=== PATIENT | male | born 1945 | race Caucasian/White ===

== ENCOUNTER 2020-07-19 06:40 | Observation (INO) | payer OTHER ==
[2020-07-19] MEDS ORDERED: NA CHLORIDE 0.9% 1,000 ML ONE ×2 (07:34→14:02)
--- NOTE | 2020-07-19 07:40 | ER ---
Nurse's Notes [facility] Name: Abbe Mcknight Age: 75 yrs Sex: Male : 1945 Arrival Date: 07/19/2020 Time: 06:39 Bed 14 Private MD: Diagnosis: Repeated falls;Weakness;Rhabdomyolysis Presentation: 07/19 06:41 Chief complaint: EMS states: he tripped and fell down in hardwood floor, hit his right rr5 eye and right shoulder sustained hematoma and swelling right forehead, left eye, multiple skin abrasion bilateral forearm and multiple bruises bilateral knees he manage to call his sister around 5AM to get some help,incident happened 8PM last night denies LOC. Coronavirus screen: Client denies travel out of the [place] in the last 14 days. At this time, the client does not indicate any symptoms associated with coronavirus-19. Ebola Screen: Patient negative for fever greater than or equal to 101.5 degrees Fahrenheit, and additional compatible Ebola Virus Disease symptoms Patient denies exposure to infectious person. Patient denies travel to an Ebola-affected area in the 21 days before illness onset. Initial Sepsis Screen: Does the patient meet any 2 criteria? No. Patient's initial sepsis screen is negative. Does the patient have a suspected source of infection? No. Patient's initial sepsis screen is negative. Risk Assessment: Do you want to hurt yourself or someone else? Patient reports no desire to harm self or others. Onset of symptoms was July 18, 2020 at 20:00. 06:41 Method Of Arrival: EMS: [facility] rr5 06:41 Acuity: JORGE 3 rr5 06:45 Care prior to arrival: None. Mechanism of Injury: Fall from standing position. Trauma rr5 event details: Injury occurred in the [facility], Injury occurred: at home. Injury occurred: July 18, 2019. Trauma Activation: Not Applicable Physician: ED Physician; Name: ; Notified At: ; Arrived At: Physician: General Surgeon; Name: ; Notified At: ; Arrived At: Physician: Radiology; Name: ; Notified At: ; Arrived At: Physician: Respiratory; Name: ; Notified At: ; Arrived At: Physician: Lab; Name: ; Notified At: ; Arrived At: Historical: - Allergies: 06:41 No Known Allergies; rr5 - Home Meds: 06:41 Clonidine Oral [Active]; atorvastatin oral oral [Active]; Allopurinol Oral [Active]; rr5 benazepril oral oral [Active]; Atenolol Oral [Active]; Hydrochlorothiazide Oral [Active]; - PMHx: 06:41 Hypertension; Hyperlipidemia; rr5 - Immunization history:: Adult Immunizations up to date. - Social history:: Smoking status: unknown. - Immunization history: Last tetanus immunization: unknown. - Family history:: not pertinent. Screenin:55 Fall Risk Fall in past 12 months (25 points). Gait- Impaired (20 pts.). Total Thomas rr5 Fall Scale indicates High Risk Score (45 or more points). Fall prevention measures have been instituted. Side Rails Up X 2 Placed Close to Nursing Station Frequent Obs/Assessments Occuring As available patient and family educated on Fall Prevention Program and Strategies. 07:00 Abuse screen: Denies threats or abuse. Denies injuries from another. Nutritional rr5 screening: No deficits noted. Tuberculosis screening: No symptoms or risk factors identified. Fall risk. Primary Survey: 06:41 NO uncontrolled hemorrhage observed. A: The patient is alert. Airway: patent, Oral rr5 cavity: clear, gag reflex present, Trachea midline. Breathing/Chest: Respiratory pattern: regular, Respiratory effort: spontaneous, unlabored, Breath sounds: clear, bilaterally. Chest inspection: symmetrical rise and fall of the chest. Circulation: Pulses: palpable right radial artery, right dorsalis pedis artery, left radial artery and left dorsalis pedis artery. Disability Alert. Exposure/Environment: There is no evidence of uncontrolled external bleeding. Obvious injury(ies) are noted at this time: bruises forehead left eye, upper and lower extremities bruises and abrasions A warming method has been applied: A warm blanket has been provided to the patient. 07:00 Reassessment Airway Airway Patent Breathing/Chest Respiratory pattern Regular bp Respiratory effort Spontaneous Unlabored Disability Alert. 09:00 Reassessment Airway Airway Patent Breathing/Chest Respiratory pattern Regular bp Respiratory effort Spontaneous Unlabored Disability Alert. Secondary Survey: 06:58 HEENT: Head No injury/deformity Face Other bruise right forehead and left eye Eyes: rr5 Ecchymosis noted left eyebrow, left upper eyelid and left outer canthus. Ears: clear bilaterally. Nose: clear Throat: is clear with gag reflex present. Gastrointestinal: Abdomen is soft. : No signs and/or symptoms were reported regarding the genitourinary system. Musculoskeletal: bruises upper and lower extremities with abrasions. Injury Description: hematoma to head, right arm, left arm, right leg and left leg. Assessment: 06:55 General: Appears in no apparent distress. comfortable, Behavior is calm, cooperative, rr5 appropriate for age. 06:55 Pain: Complains of pain in face Pain currently is 1 out of 10 on a pain scale. Quality rr5 of pain is described as aching, Pain began gradually, Is intermittent. Neuro: Level of Consciousness is awake, alert, obeys commands. Cardiovascular: Capillary refill < 3 seconds Patient's skin is warm and dry. Respiratory: Airway is patent Respiratory effort is even, unlabored, Respiratory pattern is regular, symmetrical. 07:00 Reassessment: RECD REPORT FROM AMINA BAGLEY. 66YO WM S/P FALL, ADMIT IN PROCESS FOR bp RHABDO. 08:57 Reassessment: No changes from previously documented assessment. Patient and/or family bp updated on plan of care and expected duration. Pain level reassessed. Patient is alert, oriented x 3, equal unlabored respirations, skin warm/dry/pink. LAB CRITICAL VALUES: GLU 47, CPK 4417, CKMB 40.2. 09:23 Reassessment: REPORT TO JEOVANY DESAI PT ON ER HOLD. bp Vital Signs: 06:41 BP 128 / 62; Pulse 106; Resp 19; Temp 98.2; Pulse Ox 100% ; Weight 78.47 kg; Height 6 rr5 ft. 0 in. (182.88 cm); Pain 1/10; 07:15 BP 91 / 54; Pulse 90; Resp 16; Pulse Ox 98% ; bp 08:15 BP 112 / 58; Pulse 96; Resp 16; Pulse Ox 100% ; bp 06:41 Body Mass Index 23.46 (78.47 kg, 182.88 cm) rr5 Grimes Coma Score: 06:45 Eye Response: spontaneous(4). Verbal Response: oriented(5). Motor Response: obeys rr5 commands(6). Total: 15. 06:54 Eye Response: spontaneous(4). Verbal Response: oriented(5). Motor Response: obeys laci commands(6). Total: 15. Trauma Score (Adult): 06:45 Eye Response: spontaneous(1); Verbal Response: oriented(1); Motor Response: obeys rr5 commands(2); Systolic BP: > 89 mm Hg(4); Respiratory Rate: 10 to 29 per min(4); Monika Score: 15; Trauma Score: 12 NIH Stroke Scale Scores: 06:46 NIHSS Score: 0 laci ED Course: 06:39 Patient arrived in ED. sg 06:40 Fritz De La Rosa MD is Attending Physician. laci 06:48 Triage completed. rr5 06:52 Arm band placed on right wrist. rr5 06:55 Patient has correct armband on for positive identification. Bed in low position. Call rr5 light in reach. Side rails up X2. 07:00 Patient maintains SpO2 saturation greater than 95% on room air. Thermoregulation: warm bp blanket given to patient. 07:03 Truong Poole MD is Hospitalizing Provider. laci 07:08 Warm blanket given. rr5 07:12 Fredy Ascencio, KEVYN is Primary Nurse. bp 07:30 Inserted saline lock: 20 gauge in right forearm, using aseptic technique. Blood bp collected. 07:43 Attending Physician role handed off by Fritz De La Rosa MD kdr 07:43 Jesus Burkett MD is Attending Physician. kdr 07:[address] jj2 08:14 CT Head C Spine In Process Unspecified. EDMS 08:20 XRAY Chest (1 view) In Process Unspecified. EDMS 08:38 CT completed. Patient tolerated procedure well. jj2 09:24 No provider procedures requiring assistance completed. Patient admitted, IV remains in bp place. Administered Medications: 07:30 Drug: NS 0.9% 500 ml Route: IV; Rate: bolus; Site: right forearm; bp 08:29 Follow up: IV Status: Completed infusion; IV Intake: 500ml bp 07:30 Drug: NS 0.9% 1000 ml Route: IV; Rate: 125 ml/hr; Site: right forearm; bp 09:26 Follow up: IV Status: Infusion continued upon admission bp Intake: 08:29 IV: 500ml; Total: 500ml. bp 09:25 IV: 500ml (IV Fluid); Total: 1000ml. bp Outcome: 07:05 Decision to Hospitalize by Provider. laci 09:25 Admitted to ER Hold. Please see [facility] for further documentation. bp 09:25 Condition: stable 09:25 Instructed on the need for admit. 09:25 Patient's length of stay was not longer than 2 hours. bp 17:21 Patient left the ED. NIH Stroke Scale - NIH Stroke Score Date: 07/19/2020 Time: 06:46 Total Score = 0 1a. Level of Consciousness (LOC) - 0(Alert) 1b. Level of Consciousness (LOC) (Year \T\ Age) - 0(Both) 1c. LOC Commands (Open \T\ Closes Eyes/Hvac Service Tech) - 0(Both) 2. Best Gaze (Lateral Gaze Paresis) - 0(Normal) 3. Visual Field Loss - 0(No visual loss) 4. Facial Palsy - 0(Normal) 5a. Left Arm: Motor (10-second hold) - 0(No drift) 5b. Right Arm: Motor (10-second hold) - 0(No drift) 6a. Left Leg: Motor (5-second hold - always test supine) - 0(No drift) 6b. Right Leg: Motor (5-second hold - always test supine) - 0(No drift) 7. Limb Ataxia (finger/nose \T\ heel/puri - test with eyes open) - 0(Absent) 8. Sensory Loss (pinprick arms/legs/face) - 0(Normal) 9. Best Language: Aphasia (description/naming/reading) - 0(No aphasia) 10. Dysarthria (speech clarity - read or repeat words) - 0(Normal) 11. Extinction and Inattention (visual/tactile/auditory/spatial/personal) - 0(No abnormality) Initials: [facility] Signatures: Dispatcher [employer] Kayode Noland RN RN sg Anderson, Corey, MD MD cha Rittger, Kevin, MD MD kdr Jaramillo, Justin jj2 Williams, Irene, RN RN iw Peltier, Brian, RN RN bp Roque, Raymond, RN RN rr5 Corrections: (The following items were deleted from the chart) 09:24 08:57 Reassessment: LAB CRITICAL VALUES: GLU 47, CPK 4417, CKMB 40.2 bp bp
--- NOTE | 2020-07-19 07:40 | EDPHYS ---
Physician Documentation [facility] Name: Abbe Mcknight Age: 75 yrs Sex: Male : 1945 Arrival Date: 07/19/2020 Time: 06:39 Bed 14 Private MD: ED Physician Jesus Burkett HPI: 07/19 06:45 This 66 yrs old Male presents to ER via Unassigned with complaints of Fall laci Injury. 06:45 Details of fall: The patient fell from an upright position, while walking. Onset: The laci symptoms/episode began/occurred last night. Associated injuries: The patient sustained injury to the head, neck injury, pain, swelling, tenderness. Severity of symptoms: At their worst the symptoms were mild, moderate, in the emergency department the symptoms are unchanged. The patient has experienced similar episodes in the past. 06:50 The patient or guardian reports pain, swelling, tenderness. The complaints affect the laci top of head and forehead. Context of injury: The problem was sustained at home, at fall hit head, on floor all night , sister there this morning , found on floor, ems to the er. Historical: - Allergies: 06:41 No Known Allergies; rr5 - Home Meds: 06:41 Clonidine Oral [Active]; atorvastatin oral oral [Active]; Allopurinol Oral [Active]; rr5 benazepril oral oral [Active]; Atenolol Oral [Active]; Hydrochlorothiazide Oral [Active]; - PMHx: 06:41 Hypertension; Hyperlipidemia; rr5 - Immunization history:: Adult Immunizations up to date. - Social history:: Smoking status: unknown. - Immunization history: Last tetanus immunization: unknown. - Family history:: not pertinent. ROS: 06:46 Constitutional: Negative for fever, chills, and weight loss, Eyes: Negative for injury, laci pain, redness, and discharge, ENT: Negative for injury, pain, and discharge, Neck: Negative for injury, pain, and swelling, Cardiovascular: Negative for chest pain, palpitations, and edema, Respiratory: Negative for shortness of breath, cough, wheezing, and pleuritic chest pain, Abdomen/GI: Negative for abdominal pain, nausea, vomiting, diarrhea, and constipation, Back: Negative for injury and pain, : Negative for injury, bleeding, discharge, and swelling, Skin: Negative for injury, rash, and discoloration, Psych: Negative for depression, anxiety, suicide ideation, homicidal ideation, and hallucinations, Allergy/Immunology: Negative for hives, rash, and allergies, Endocrine: Negative for neck swelling, polydipsia, polyuria, polyphagia, and marked weight changes, Hematologic/Lymphatic: Negative for swollen nodes, abnormal bleeding, and unusual bruising. 06:46 MS/extremity: Positive for decreased range of motion, pain, swelling, of the face, right arm, left arm, right leg and left leg. Exam: 06:46 Constitutional: This is a well developed, well nourished patient who is awake, alert, laci and in no acute distress. Eyes: Pupils equal round and reactive to light, extra-ocular motions intact. Lids and lashes normal. Conjunctiva and sclera are non-icteric and not injected. Cornea within normal limits. Periorbital areas with no swelling, redness, or edema. ENT: Nares patent. No nasal discharge, no septal abnormalities noted. Tympanic membranes are normal and external auditory canals are clear. Oropharynx with no redness, swelling, or masses, exudates, or evidence of obstruction, uvula midline. Mucous membranes moist. Neck: Trachea midline, no thyromegaly or masses palpated, and no cervical lymphadenopathy. Supple, full range of motion without nuchal rigidity, or vertebral point tenderness. No Meningismus. Chest/axilla: Normal chest wall appearance and motion. Nontender with no deformity. No lesions are appreciated. Cardiovascular: Regular rate and rhythm with a normal S1 and S2. No gallops, murmurs, or rubs. Normal PMI, no JVD. No pulse deficits. Respiratory: Lungs have equal breath sounds bilaterally, clear to auscultation and percussion. No rales, rhonchi or wheezes noted. No increased work of breathing, no retractions or nasal flaring. Abdomen/GI: Soft, non-tender, with normal bowel sounds. No distension or tympany. No guarding or rebound. No evidence of tenderness throughout. Back: No spinal tenderness. No costovertebral tenderness. Full range of motion. Skin: Warm, dry with normal turgor. Normal color with no rashes, no lesions, and no evidence of cellulitis. MS/ Extremity: Pulses equal, no cyanosis. Neurovascular intact. Full, normal range of motion. Neuro: Awake and alert, GCS 15, oriented to person, place, time, and situation. Cranial nerves II-XII grossly intact. Motor strength 5/5 in all extremities. Sensory grossly intact. Cerebellar exam normal. Normal gait. Psych: Awake, alert, with orientation to person, place and time. Behavior, mood, and affect are within normal limits. 06:46 Head/face: Noted is hematoma, swelling, tenderness, that is mild, of the top of head and left frontal area. 06:46 Musculoskeletal/extremity: Circulation is intact in all extremities. Sensation intact. Compartment Syndrome exam of affected extremity: is normal. DVT Exam: tenderness, that is mild, bilateral lower extremity contusions. 07:43 ECG was reviewed by the Attending Physician. [facility] Vital Signs: 06:41 BP 128 / 62; Pulse 106; Resp 19; Temp 98.2; Pulse Ox 100% ; Weight 78.47 kg; Height 6 rr5 ft. 0 in. (182.88 cm); Pain 1/10; 07:15 BP 91 / 54; Pulse 90; Resp 16; Pulse Ox 98% ; bp 08:15 BP 112 / 58; Pulse 96; Resp 16; Pulse Ox 100% ; bp 06:41 Body Mass Index 23.46 (78.47 kg, 182.88 cm) rr5 NIH Stroke Scale Scores: 06:46 NIHSS Score: 0 laci Monika Coma Score: 06:45 Eye Response: spontaneous(4). Verbal Response: oriented(5). Motor Response: obeys rr5 commands(6). Total: 15. 06:54 Eye Response: spontaneous(4). Verbal Response: oriented(5). Motor Response: obeys laci commands(6). Total: 15. Trauma Score (Adult): 06:45 Eye Response: spontaneous(1); Verbal Response: oriented(1); Motor Response: obeys rr5 commands(2); Systolic BP: > 89 mm Hg(4); Respiratory Rate: 10 to 29 per min(4); Monika Score: 15; Trauma Score: 12 MDM: 06:40 Patient medically screened. laci 06:54 Differential diagnosis: Contusion of Hematoma on Intracranial bleed- Concussion laci cerebral contusion. Differential diagnosis: abrasion, closed head injury, contusion, fracture, multiple trauma, sprain, strain. Data reviewed: vital signs, nurses notes, lab test result(s), EKG, radiologic studies, plain films. Data interpreted: monitor and storage bin tender: rate is 106 beats/min, rhythm is regular. Test interpretation: by ED physician or midlevel provider: ECG, plain radiologic studies. Counseling: I had a detailed discussion with the patient and/or guardian regarding: the historical points, exam findings, and any diagnostic results supporting the discharge/admit diagnosis, lab results, radiology results. 07/19 06:54 Order name: Basic Metabolic Panel [facility] 07/19 06:54 Order name: CBC with Diff [facility] 07/19 06:54 Order name: LFT's [facility] 07/19 06:54 Order name: Magnesium [facility] 07/19 06:54 Order name: NT PRO-BNP [facility] 07/19 06:54 Order name: PT-INR; Complete Time: 08:53 [facility] 07/19 06:54 Order name: Troponin (emerg Dept Use Only) [facility] 07/19 06:54 Order name: Urine Culture [facility] 07/19 06:54 Order name: CK [facility] 07/19 06:54 Order name: Ckmb [facility] 07/19 06:54 Order name: Lipase [facility] 07/19 08:19 Order name: CBC Smear Scan [facility] 07/19 08:31 Order name: CBC with Automated Diff [facility] 07/19 08:31 Order name: CBC with Automated Diff [facility] 07/19 08:31 Order name: Comprehensive Metabolic Panel [facility] 07/19 08:31 Order name: Comprehensive Metabolic Panel [facility] 07/19 08:31 Order name: Lipid Profile [facility] 07/19 08:31 Order name: Lipid Profile [facility] 07/19 08:31 Order name: Protime (+INR) [facility] 07/19 08:31 Order name: Protime (+INR) [facility] 07/19 08:31 Order name: PTT, Activated Partial Thromb [facility] 07/19 08:31 Order name: PTT, Activated Partial Thromb [facility] 07/19 08:31 Order name: Troponin I [facility] 07/19 08:31 Order name: Troponin I [facility] 07/19 08:31 Order name: Folic Acid, (Folate) [facility] 07/19 08:31 Order name: Folic Acid, (Folate) [facility] 07/19 08:31 Order name: Vitamin B12 Level [facility] 07/19 08:31 Order name: Vitamin B12 Level [facility] 07/19 09:07 Order name: Manual Differential [facility] 07/19 10:21 Order name: COVID-19 iw 07/19 06:54 Order name: XRAY Chest (1 view); Complete Time: 08:53 [facility] 07/19 06:54 Order name: EKG; Complete Time: 07:41 [facility] 07/19 06:54 Order name: Cardiac monitoring; Complete Time: 08:30 [facility] 07/19 06:54 Order name: EKG - Nurse/Tech; Complete Time: 08:30 [facility] 07/19 06:54 Order name: IV Saline Lock; Complete Time: 08:29 [facility] 07/19 06:54 Order name: Labs collected and sent; Complete Time: 07:14 [facility] 07/19 06:54 Order name: O2 Per Protocol; Complete Time: 07:14 [facility] 07/19 06:54 Order name: O2 Sat Monitoring; Complete Time: 07:14 [facility] 07/19 06:54 Order name: CT Head C Spine; Complete Time: 08:53 [facility] 07/19 08:31 Order name: CONS Pharmacy Consult [facility] 07/19 08:31 Order name: Heart Healthy [facility] 07/19 08:31 Order name: Echo with Doppler [facility] 07/19 08:31 Order name: Echo with Doppler [facility] 07/19 08:31 Order name: Carotid Artery Bilateral [facility] 07/19 08:31 Order name: Carotid Artery Bilateral [facility] 07/19 08:31 Order name: Physical Therapy Consult [facility] 07/19 10:31 Order name: US [facility] 07/19 10:45 Order name: CORONAVIRUS [facility] 07/19 10:45 Order name: CORONAVIRUS [facility] 07/19 11:45 Order name: SARS-COV-2 RT PCR [facility] 07/19 13:30 Order name: Glucose, Ancillary Testing [facility] EC:43 Rate is 91 beats/min. Rhythm is regular. QRS [place] is Normal. MO interval is normal. QRS laci interval is normal. QT interval is normal. No Q waves. T waves are Normal. No ST changes noted. Clinical impression: NSR w/ Non-specific ST/T Changes and No evidence of ischemia. Interpreted by me. Reviewed by me. Administered Medications: 07:30 Drug: NS 0.9% 500 ml Route: IV; Rate: bolus; Site: right forearm; bp 08:29 Follow up: IV Status: Completed infusion; IV Intake: 500ml bp 07:30 Drug: NS 0.9% 1000 ml Route: IV; Rate: 125 ml/hr; Site: right forearm; bp 09:26 Follow up: IV Status: Infusion continued upon admission bp Disposition: 07/19/20 07:05 Hospitalization ordered by Truong Poole for Observation. Preliminary diagnosis are Repeated falls, Weakness, Rhabdomyolysis. - Bed requested for Telemetry/MedSurg (observation). - Status is Observation. iw - Condition is Fair. - Problem is new. - Symptoms have improved. NIH Stroke Scale - NIH Stroke Score Date: 07/19/2020 Time: 06:46 Total Score = 0 1a. Level of Consciousness (LOC) - 0(Alert) 1b. Level of Consciousness (LOC) (Year \T\ Age) - 0(Both) 1c. LOC Commands (Open \T\ Closes Eyes/Bunch Breaker) - 0(Both) 2. Best Gaze (Lateral Gaze Paresis) - 0(Normal) 3. Visual Field Loss - 0(No visual loss) 4. Facial Palsy - 0(Normal) 5a. Left Arm: Motor (10-second hold) - 0(No drift) 5b. Right Arm: Motor (10-second hold) - 0(No drift) 6a. Left Leg: Motor (5-second hold - always test supine) - 0(No drift) 6b. Right Leg: Motor (5-second hold - always test supine) - 0(No drift) 7. Limb Ataxia (finger/nose \T\ heel/puri - test with eyes open) - 0(Absent) 8. Sensory Loss (pinprick arms/legs/face) - 0(Normal) 9. Best Language: Aphasia (description/naming/reading) - 0(No aphasia) 10. Dysarthria (speech clarity - read or repeat words) - 0(Normal) 11. Extinction and Inattention (visual/tactile/auditory/spatial/personal) - 0(No abnormality) Initials: laci Signatures: Dispatcher [employer] Yanet Grier RN Fritz Henderson MD MD cha Rittger, Kevin, MD MD kdr Williams, Irene, RN RN iw Peltier, Brian, RN RN bp Roque, Raymond, RN RN rr5 Corrections: (The following items were deleted from the chart) 09:23 07:05 Hospitalization Ordered by Truong Poole MD for Observation. Preliminary iw diagnosis is Repeated falls; Weakness; Rhabdomyolysis. Bed requested for Telemetry/MedSurg (observation). Status is Observation. Condition is Fair. Problem is new. Symptoms have improved. laci 16:05 09:23 07/19/2020 07:05 Hospitalization Ordered by Truong Poole MD for dw Observation. Preliminary diagnosis is Repeated falls; Weakness; Rhabdomyolysis. Bed requested for [facility] ER HOLD. Status is Observation. Condition is Fair. Problem is new. Symptoms have improved. iw 17:21 16:05 07/19/2020 07:05 Hospitalization Ordered by Truong Poole MD for iw Observation. Preliminary diagnosis is Repeated falls; Weakness; Rhabdomyolysis. Bed requested for Telemetry/MedSurg (observation). Status is Observation. Condition is Fair. Problem is new. Symptoms have improved. dw
[2020-07-19 08:11] LABS: Absolute Lymphocytes (CBC) 0.7 K/uL (0.7-4.9); Hematocrit 38.4 % (39.6-49.0); Lymphocytes % 4.7 % (15.3-44.8); MPV 7.5 fL (7.6-11.3); Protime INR 0.9; RBC Red Blood Cell Count 3.79 M/uL (4.33-5.43)
[2020-07-19] MEDS ORDERED: ONDANSETRON 4 MG/2 ML VIAL IV PRN (08:27)
[2020-07-19] MEDS ORDERED: ACETAMINOPHEN 500 MG TAB PO PRN (08:27)
--- NOTE | 2020-07-19 08:39 | RAD REPORT ---
EXAM DESCRIPTION: CT - CTHCSPWOC - 07/19/2020 8:14 am CLINICAL HISTORY: Trauma, head and neck injury. PAIN COMPARISON: No comparisons TECHNIQUE: Axial 5 mm thick images of the head were obtained. Axial 2 mm thick images of the cervical spine were obtained with sagittal and coronal reconstruction images generated and reviewed. All CT scans are performed using dose optimization technique as appropriate and may include automated exposure control or mA/KV adjustment according to patient size. FINDINGS: CT HEAD WITHOUT CONTRAST: No acute hemorrhage, hydrocephalus or extra-axial collection is identified.Mild generalized brain atr ophy is present with mild periventricular and deep white matter chronic microvascular ischemic change s.No areas of brain edema or midline shift. The paranasal sinuses and mastoids are clear.The calvarium is intact. Moderate right frontal scalp he matoma. CT CERVICAL SPINE WITHOUT CONTRAST: No fracture or subluxation.Moderate multilevel cervical degenerative changes are present.No preverteb ral soft tissues swelling is identified. Carotid atherosclerosis is present bilaterally. IMPRESSION: No acute intracranial or cervical spine findings. Moderate multilevel degenerative cervical spondylosis.
--- NOTE | 2020-07-19 08:42 | RAD REPORT ---
EXAM DESCRIPTION: RAD - Chest Single View - 07/19/2020 8:19 am CLINICAL HISTORY: COUGH Chest pain. COMPARISON: No comparisons FINDINGS: Portable technique limits examination quality. The lungs are grossly clear. The heart is normal in size. No displaced fractures.Prominent degenerati ve changes are present both shoulders. IMPRESSION: No acute intrathoracic process suspected.
[2020-07-19 08:50] LABS: Albumin 3.3 g/dL (3.4-5.0); Bilirubin Direct 0.4 mg/dL (0-0.2); Bilirubin Total 1.3 mg/dL (0.2-1.0); CKMB Creatine Kinase MB 40.2 ng/mL (0.3-3.6); Magnesium 1.5 mg/dL (1.8-2.4); Potassium 4.2 mmol/L (3.5-5.1); Protein, Total 6.1 g/dL (6.4-8.2); Troponin (Emerg Dept Use Only) 0.07 ng/mL (0.0-0.045)
[2020-07-19] MEDS: NA CHLORIDE 0.9% 1,000 ML IV SCH ×2 (09:00→13:48)
[2020-07-19 09:06] LABS: Blood Morphology Comment NOT SEEN (NOT SEEN); Platelet Estimate ADEQ
[2020-07-19] MEDS ORDERED: D50W 25 GM/50 ML SYRINGE IV ONE (09:10)
--- NOTE | 2020-07-19 10:30 | RAD REPORT ---
EXAM DESCRIPTION: - CP - 07/19/2020 9:48 am CLINICAL HISTORY: Syncope Headache, drowsiness COMPARISON: Head C Spine Mpr Wo Con dated 07/19/2020; Chest Single View dated 07/19/2020 TECHNIQUE: Real-time sonographic evaluation of both carotid systems was performed. Doppler interroga tion was performed with waveform tracing bilaterally. FINDINGS: Normal high resistance waveforms are noted in both external carotid arteries. The common c arotid arteries and internal carotid arteries show normal low resistance waveforms. Moderate hard plaque seen right carotid bulb. Moderate significant hard plaque seen in the left carot id bulb. Based on NASCET criteria, right carotid bulb stenosis estimated at 50-70%. Left carotid bulb stenosis is estimated 80%. There is turbulent flow seen. No hemodynamically significant velocity anna vation seen, however. Antegrade flow seen in both vertebral arteries. IMPRESSION: Significant hard plaquing is present in both carotid bulbs, greater on the left. Visuall y, bilateral carotid bulb stenosis is present, greater on the left. No hemodynamically significant fl ow alteration is evident. Recommend MRA of the neck vessels further evaluation.
[2020-07-19 10:39] VITALS: BMI 23.3
[2020-07-19] MEDS: D5W 1,000 ML with NA BICARB 8.4% 100 MEQ IV SCH ×2 (16:20)
[2020-07-19] MEDS ORDERED: HYDROCODONE/APAP 5/325 MG TAB PO PRN (21:19)
[2020-07-20] MEDS: D5W 1,000 ML with NA BICARB 8.4% 100 MEQ IV SCH ×4 (03:28→14:00)
--- NOTE | 2020-07-20 06:21 | EKG ---
Test Date: 2020-07-19 Test Time: 07:32:18 Sql Server Architect: BP MEASUREMENT RESULTS: Intervals: Rate: 91 CO: 146 QRSD: 88 QT: 384 QTc: 472 Falls: P: 54 CO: 146 QRS: -69 T: 53 INTERPRETIVE STATEMENTS: Normal sinus rhythm Left axis deviation Abnormal ECG No previous ECG available for comparison Electronically Signed On 07-20-20 06:18:13 BOOM MAN by Imer Albarran
[2020-07-20 06:38] LABS: RBC Red Blood Cell Count 3.06 M/uL (4.33-5.43)
[2020-07-20 06:39] LABS: Absolute Lymphocytes (CBC) 1.4 K/uL (0.7-4.9); Basophils % 0.2 % (0-1.3); Hematocrit 30.6 % (39.6-49.0); Lymphocytes % 13.3 % (15.3-44.8); MPV 7.9 fL (7.6-11.3); RBC Red Blood Cell Count 3.04 M/uL (4.33-5.43)
[2020-07-20 06:41] LABS: Protime INR 0.92
[2020-07-20 07:16] LABS: Magnesium 1.6 mg/dL (1.8-2.4); Phosphorus 3.3 mg/dL (2.5-4.9)
[2020-07-20 07:23] LABS: ALT/SGPT 39 U/L (12-78); AST/SGOT 150 U/L (15-37); Albumin 2.8 g/dL (3.4-5.0); Alkaline Phosphatase 49 U/L (45-117); BUN Blood Urea Nitrogen 29 mg/dL (7-18); Bicarbonate 28 mmol/L (21-32); Bilirubin Total 1.4 mg/dL (0.2-1.0); Folic Acid, (Folate) 4.2 ng/mL (3.1-17.5); Glucose Level 112 mg/dL (74-106); HDL Cholesterol 73 mg/dL (40-60); Potassium 3.4 mmol/L (3.5-5.1); Protein, Total 5.3 g/dL (6.4-8.2); Sodium Level 135 mmol/L (136-145)
[2020-07-20 07:41] LABS: LDL Cholesterol, Calculated ND (<130)
[2020-07-20] MEDS ORDERED: CYANOCOBALAMIN 1000MCG/ML INJ IM ONE (08:18)
[2020-07-20] MEDS ORDERED: HYDROCORTISONE SUC 100 MG INJ IV ONE (08:25)
[2020-07-20] MEDS ORDERED: NA CHLORIDE 0.9% 500 ML IV ONE (08:25)
--- NOTE | 2020-07-20 08:27 | P.HP ---
Certification for Inpatient Patient admitted to: Observation With expected LOS: <2 Midnights Patient will require the following post-hospital care: None Practitioner: I am a practitioner with admitting privileges, knowledge of patient current condition, hospital course, and medical plan of care. Services: Services provided to patient in accordance with Admission requirements found in Title 42 Section 412.3 of the Code of Federal Regulations Patient History Date of Service: 07/19/20 Reason for admission: Syncope/rhabdomyolysis History of Present Illness: Patient is a 75-year-old gentleman who presents to the hospital after having falls. Patient has had multiple falls over the last few weeks. He said he gets lightheaded. He has multiple bruising diffusely. He said he is feeling much better after IV hydration. However, patient does not really know what he gets weak and falls. Workup is pending. CPK is elevated. Allergies No Known Allergies Allergy (Verified 07/19/20 09:49) Home Medications: Allopurinol 300 mg PO DAILY 07/19/20 Atenolol [Tenormin] 25 mg PO DAILY 07/19/20 Atorvastatin Calcium 40 mg PO DAILY 07/19/20 Benazepril HCl 40 mg PO DAILY 07/19/20 Clonidine HCl [Catapres] 0.1 mg PO BID 07/19/20 hydroCHLOROthiazide [Hydrodiuril] 25 mg PO DAILY 07/19/20 - Past Medical/Surgical History Has patient received pneumonia vaccine in the past: Yes Diabetic: No -: HTN -: HLD -: Gout Past Surgical History: Patient denies surgical history - Family History Father Family History: Reviewed- Non-Contributory - Social History Smoking Status: Never smoker Alcohol use: Yes CD- Drugs: No Caffeine use: Yes Place of Residence: Home Review of Systems 10-point ROS is otherwise unremarkable Physical Examination - Vital Signs Temperature: 97.9 F Blood Pressure: 135/64 Pulse: 79 Respirations: 16 Pulse Ox (%): 96 - Physical Exam General: Alert, In no apparent distress, Oriented x3 HEENT: Atraumatic, PERRLA, Mucous membr. moist/pink, EOMI, Sclerae nonicteric Neck: Supple, 2+ carotid pulse no bruit, No LAD, Without JVD or thyroid abnorm ality Respiratory: Clear to auscultation bilaterally, Normal air movement Cardiovascular: Regular rate/rhythm, Normal S1 S2, Systolic murmur Gastrointestinal: Normal bowel sounds, Soft and benign, Non-distended, No tenderness Musculoskeletal: No clubbing, No swelling, No tenderness Integumentary: Erythema, Warmth, Other (Skin bruising) Neurological: Normal gait, Normal speech, Normal tone, Sensation intact, Cranial nerves 3-12 intact, Normal affect, Abnormal strength Lymphatics: No axilla or inguinal lymphadenopathy - Studies Laboratory Data (last 24 hrs) 07/19/20 07:30: WBC 14.9 H, Hgb 13.2 L, Hct 38.4 L, Plt Count 222 07/19/20 07:30: Sodium 135 L, Potassium 4.2, BUN 18, Creatinine 1.53 H, Glucose 47 L*, Magnesium 1.5 L, Total Bilirubin 1.3 H, AST 137 H, ALT 40, Alkaline Phosphatase 63, Lipase 76 Assessment & Plan - Problems (Diagnosis) (1) Status post fall Current Visit: Yes Status: Acute (2) Near syncope Current Visit: Yes Status: Acute (3) B12 deficiency Current Visit: Yes Status: Acute (4) Folate deficiency Current Visit: Yes Status: Acute (5) Rhabdomyolysis Current Visit: Yes Status: Acute (6) Macrocytic anemia with vitamin B12 deficiency Current Visit: Yes Status: Acute (7) Hypertension Current Visit: Yes Status: Acute (8) Dyslipidemia Current Visit: Yes Status: Acute (9) On statin therapy Current Visit: Yes Status: Acute - Plan Plan: 1. IV hydration 2. Bicarb drip 3. Nutritional deficiency-will supplement 4. Will need to increase protein intake 5. Rule out myopathy 6. Physical therapy consultation 7. Arrangement for home health 8. Monitor renal function closely 9. Dc statin therapy 10. Recommend holding hydrochlorothiazide 11. GI and DVT prophylaxis Discharge Plan: Home Plan to discharge in: 24 Hours - Advance Directives Does patient have a Living Will: No Does patient have a Durable POA for Healthcare: No - Code Status/Comfort Care Code Status Assessed: Yes Code Status: Full Code Critical Care: No Time Spent Managing PTS Care (In Minutes): 45
--- NOTE | 2020-07-20 08:38 | ECHO ---
HEIGHT: 6 ft 0 in WEIGHT: 172 lb 9.6 oz DATE OF STUDY: 07/19/[address]: Truong Poole MD 2-DIMENSIONAL: YES M.MODE: YES DOPPLER: YES COLOR FLOW: YES TDS: YES PORTABLE: DEFINITY: BUBBLE STUDY: DIAGNOSIS: SYNCOPE CARDIAC HISTORY: CATHERIZATION: NO SURGERY: NO PROSTHETIC VALVE: NO PACEMAKER: NO MEASUREMENTS (cm) DIASTOLIC (NORMALS) SYSTOLIC (NORMALS) IVSd 1.1 (0.6-1.2) LA Diam 2.4 (1.9-4.0) LVEF 68% LVIDd 2.5 (3.5-5.7) LVIDs 1.6 (2.0-3.5) %FS 36% LVPWd 1.2 (0.6-1.2) Ao Diam 2.2 (2.0-3.7) 2 DIMENSIONAL ASSESSMENT: RIGHT ATRIUM: NORMAL LEFT ATRIUM: NORMAL RIGHT VENTRICLE: NORMAL LEFT VENTRICLE: NORMAL TRICUSPID VALVE: NORMAL MITRAL VALVE: NORMAL PULMONIC VALVE: NORMAL AORTIC VALVE: NORMAL PERICARDIAL EFFUSION: NONE AORTIC ROOT: NORMAL LEFT VENTRICULAR WALL MOTION: DOPPLER/COLOR FLOW: COMMENTS: TECHNICALLY DIFFICULT STUDY. GROSSLY NORMAL LEFT VENTRICULAR SIZE AND FUNCTION. NO EFFUSION. TECHNOLOGIST: ALEJANDRO BURROUGHS
[2020-07-20] MEDS ORDERED: FOLIC ACID 1 MG in NA CHLORIDE 0.9% 50 ML IV SCH (09:00)
[2020-07-20] MEDS ORDERED: Magnesium Sulfate 2gm IVPB 2 G/50 ML BAG IV ONE ×2 (10:00→10:25)
[2020-07-20 11:58] LABS: C-Reactive Protein 88.5 mg/L (<3.00); Magnesium 1.6 mg/dL (1.8-2.4); Potassium 3.8 mmol/L (3.5-5.1)
--- NOTE | 2020-07-20 16:15 | P.DS ---
Discharge Date: 07/20/20 Disposition: TRANSFER TO INPATIENT REHAB Discharge Condition: GOOD Reason for Admission: Syncope/rhabdomyolysis - Problems (1) Status post fall Status: Acute (2) Near syncope Status: Acute (3) B12 deficiency Status: Acute (4) Folate deficiency Status: Acute (5) Rhabdomyolysis Status: Acute (6) Macrocytic anemia with vitamin B12 deficiency Status: Acute (7) Hypertension Status: Acute (8) Dyslipidemia Status: Acute (9) On statin therapy Status: Acute Brief History of Present Illness: Patient is a 75-year-old gentleman who presents to the hospital after having falls. Patient has had multiple falls over the last few weeks. He said he gets lightheaded. He has multiple bruising diffusely. He said he is feeling much better after IV hydration. However, patient does not really know what he gets weak and falls. Workup is pending. CPK is elevated. Hospital Course: Patient was worked up and we decided to admit the patient to Inpatient rehabilitation. Patient is doing much better and we will continue to strengthen him up at home. We will go ahead and provide patient with nutritional support along with our supplementation. Patient should be discharged later today to inpatient rehab. Vital Signs/Physical Exam: Temp Pulse Resp BP Pulse Ox 98.0 F 80 15 125/60 97 07/20/20 12:00 07/20/20 12:00 07/20/20 12:00 07/20/20 12:00 07/20/20 12:00 General: Alert, In no apparent distress, Oriented x3 Laboratory Data at Discharge: WBC 10.5 K/uL (4.3-10.9) D 07/20/20 06:02 Hgb 10.6 g/dL (13.6-17.9) L D 07/20/20 06:02 Hct 30.6 % (39.6-49.0) L D 07/20/20 06:02 Plt Count 160 K/uL (152-406) D 07/20/20 06:02 PT 10.9 SECONDS (9.5-12.5) 07/20/20 06:02 INR 0.92 07/20/20 06:02 APTT 31.2 SECONDS (24.3-36.9) 07/20/20 06:02 Sodium 135 mmol/L (136-145) L 07/20/20 10:48 Potassium 3.8 mmol/L (3.5-5.1) 07/20/20 10:48 BUN 28 mg/dL (7-18) H 07/20/20 10:48 Creatinine 0.97 mg/dL (0.55-1.3) 07/20/20 10:48 Glucose 136 mg/dL (74-106) H 07/20/20 10:48 Phosphorus 3.3 mg/dL (2.5-4.9) 07/20/20 06:02 Magnesium 1.6 mg/dL (1.8-2.4) L 07/20/20 10:48 Total Bilirubin 1.4 mg/dL (0.2-1.0) H 07/20/20 06:02 AST 150 U/L (15-37) H 07/20/20 06:02 ALT 39 U/L (12-78) 07/20/20 06:02 Alkaline Phosphatase 49 U/L (45-117) 07/20/20 06:02 Troponin I 0.06 ng/mL (0.0-0.045) H 07/19/20 12:03 Triglycerides 74 mg/dL (<150) 07/20/20 06:02 Cholesterol 87 mg/dL (<200) 07/20/20 06:02 HDL Cholesterol 73 mg/dL (40-60) H 07/20/20 06:02 Cholesterol/HDL Ratio 1.19 07/20/20 06:02 Lipase 76 U/L (73-393) 07/19/20 07:30 Home Medications: Allopurinol 300 mg PO DAILY 07/19/20 Atenolol [Tenormin] 25 mg PO DAILY 07/19/20 Clonidine HCl [Catapres] 0.1 mg PO BID 07/19/20 Cyanocobalamin/Cobamamide [Vitamin B-12 5,000 Mcg Tab Sl] 1 each SL DAILY #30 tab.subl 07/20/20 Folic Acid 1 mg PO DAILY #30 tablet 07/20/20 predniSONE [Prednisone*] 20 mg PO BID #11 tab 07/20/20 New Medications: Folic Acid 1 mg PO DAILY #30 tablet predniSONE [Prednisone*] 20 mg PO BID #11 tab Cyanocobalamin/Cobamamide [Vitamin B-12 5,000 Mcg Tab Sl] 1 each SL DAILY #30 tab.subl Patient Discharge Instructions: OK TO DC IV AND DC to inpatient rehab. FOLLOW- UP WITH PRIMARY CARE PROVIDER IN 1-2 WEEKS. FOLLOW-UP WITH CARDIOLOGY IN 1-2 WEEKS. RETURN TO THE ER IF symptoms worsened. CALL or TEXT DR. SUAREZ AT [phone] IF ANY QUESTIONS REGARDING HOSPITAL STAY. PLEASE CALL THE FLOOR AT [phone] IF ANY MEDICATION OR NURSING QUESTIONS. Diet: AHA Activity: Fall precautions Followup: Imer Albarran MD [ACTIVE - CAN ADMIT] - (Call to make an appointment. ) NONE,NONE [Primary Care Provider] -
[2020-07-20 16:45] VITALS: BP 158/72; TEMP 98.4
[2020-07-20 18:08] VITALS: O2SAT 97
== END 2020-07-20 19:36 ==
LOC: EDBD → ER 06:40 → ERHOLD 08:28 → 2ND 17:03
PROVIDERS: ADMIT Hospitalist; ATTEND Hospitalist
DX: R55 Syncope and collapse (principal); R29.6 Repeated falls; M62.82 Rhabdomyolysis; E53.8 Deficiency of other specified B group vitamins; I10 Essential (primary) hypertension; Z20.822 Contact with and (suspected) exposure to COVID-19; Z79.899 Other long term (current) drug therapy; E78.5 Hyperlipidemia, unspecified; M10.9 Gout, unspecified; I65.23 Occlusion and stenosis of bilateral carotid arteries; R94.31 Abnormal electrocardiogram [ECG] [EKG]
CPT/HCPCS: 96361; 93005; 93306; 87088; 85025 ×2; 87086; 80048 ×3; 36415 ×2; 83735 ×3; 82550 ×4; 84100; 85610 ×2; 85044; 80061; 82947; 80076; 85730; 85652; 84484 ×2; 82553; 82746 ×2; 82607 ×2; 83690; 83540; 80053; 82085; 83880 ×2; 86140; 70450; 72125; 71045; 93880; 97112 ×2; 97116 ×2; 97161; 97530 ×4; 96360; 99285; U0003; J3420; J3475 ×2; J7040; J7030 ×2; J1720

== ENCOUNTER 2020-07-20 11:07 | Inpatient (IN) | payer OTHER, MEDICARE ==
--- NOTE | 2020-07-20 15:33 | R.PREADM ---
PRE-ADMISSION SCREENING FORM SCREENING DATE AND TIME 07/20/2020 11:29 (METAL BONDING PRESS OPERATOR) ANTICIPATED REHAB ADMISSION DATE 07/22/2020 REFERRING FACILITY [facility] REFERRAL DATE AND TIME 07/20/2020 11:29 (METAL BONDING PRESS OPERATOR) REFERRAL ROOM# 207 ACUTE ADMIT DATE 07/20/2020 Previous Rehabilitation(s): No. 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 SUAREZ REFERRING PHYSICIAN REHAB FACILITY [facility] CLINICAL LIAISON Theo Schmitt PHYSICIAN REVIEWER Dr. Duncan Sierra M.D. MR# [id number] NAME DEMETRIUS SCRUGGS ADDRESS [address] [facility] [id number] DATE OF 1945 AGE 75 SSN# [id number] GENDER male MARITAL STATUS RACE unknown race ADMIT FROM 02 - [facility] PRE-HOSPITAL LIVING SETTING 01 - Home (private home/apt. board/care, assisted living, longterm, transitional living) HOME TYPE AND DETAILS Type of home: single family house # of levels in the residence: 1 # of steps within the residence: 0 # of steps to enter the residence: 0 PRE-HOSPITAL LIVING WITH Alone FAMILY SUPPORT No PRIMARY FAMILY CONTACT NAME NEIDA RINALDI PRIMARY FAMILY CONTACT PHONE PRIMARY FAMILY CONTACT RELATIONSHIP Sister PHONE PRIMARY FAMILY CONTACT ON ADM.? no IS PRIMARY FAMILY CONTACT AUTH. REP.? no 1ST EMERGENCY CONTACT NEIDA RINALDI 1ST CONTACT PHONE 1ST CONTACT RELATIONSHIP Sister PHONE 1ST CONTACT ON ADM. no IS 1ST CONTACT AUTH. REP.? no PHONE 2ND CONTACT ON ADM.? no PATIENT EMPLOYMENT STATUS Retired (for age) PATIENT EMPLOYER No Employer PAYOR INFORMATION: 1ST PAYOR NAME MEDICARE 1ST PAYOR PHONE 1ST PAYOR INJURY/ILLNESS DUE TO ACCIDENT? No ANOTHER DEMOCRAT RESPONSIBLE? No PRIMARY REHAB/ACUTE DIAGNOSIS: Rhabdomyolysis (M62.82) ONSET DATE 07/20/2020 REHAB IMPAIRMENT CATEGORY (ALFRED): 20 Miscellaneous (Misc) does NOT meet 60% rule PRIMARY DIAGNOSIS-RELATED SURGERIES: N/A SUMMARY OF ACUTE HOSPITALIZATION: Pt. is a 75 yo Right-handed male of unknown race. On 07/20/2020 he was admitted to [facility] with diagnosis Rhabdomyolysis (M62.82). His impairment category is Debility 16 - Debility (16). Pre-morbidly, Pt. was independent/mod-I in Locomotion, Self-Care, Communication, and Endurance; and h e had good Sphincter Control, Transfers Control, and Social Cognition. Currently, he has deficits of Safety Awareness, Locomotion, Balance, Transfers Control, and Endurance . Pt. is now referred to [facility] for acute in-patient rehabilitation in order to maximize patient's functional independence in activities of daily living, strength, ROM, and mobi lity. Patient has realistic goal of being discharged at assistance level 7-Ind to reside at Home with Pt s elf. PAST MEDICAL HISTORY HTN HLD GOUT MEDICATION ALLERGIES: No Known Drug Allergies (NKDA) ENVIRONMENTAL ALLERGIES: - Substance Allergies None Known - Other Allergies None Known CODE STATUS: Full code WEIGHT/HEIGHT/BMI: WEIGHT 172 lbs HEIGHT 6' 0" BMI 23.3 DIET: - Diet Type Regular - Diet - Solid Texture Regular - Diet - Liquid Texture Regular - Tube Feed N/A REVIEW OF SYSTEMS: - Gen Alert and awake Lying in bed No apparent distress Oriented to: person, time, and place - Vital Signs Temperature: 97.9 F SBP/DBP: 135/64 Pulse: 79 Resp: 16 Vital signs stable, afebrile - CVS RRR VITAL SIGNS Temperature: 97.9 F SBP/DBP: 135/64 Pulse: 79 Resp: 16 Vital signs stable, afebrile MEDICATIONS/TREATMENT: Other- See attached MAR (Medication Administration Record). CURRENT SPHINCTER CONTROL: Pre-hospital bladder status: unspecified # of bladder accidents in the last 7 days prior to screenin Pre-hospital bowel status: unspecified # of bowel accidents in the last 7 days prior to screenin Last Bowel Movement Date: 07/20/2020 CURRENT LOCOMOTION STATUS: distance walked 35 feet WITH ROLLING WALKER DETAILED CURRENT FUNCTIONAL STATUS: - Bladder accident frequency: Ind - No accidents in the past 7 days - Bowel accident frequency: Ind - No accidents in the past 7 days - Walking score based on distance walked: 0(N/A) score based on distance walked: 1(<=50ft) - Wheelchair score based on distance traveled: 0(N/A) QI SCORES: - Self-Care A. Eating 03-Partial/moderate assistance B. Oral hygiene 03-Partial/moderate assistance C. Toileting hygiene 03-Partial/moderate assistance E. Shower/bathe self 03-Partial/moderate assistance F. Upper body dressing 03-Partial/moderate assistance G. Lower body dressing 03-Partial/moderate assistance H. Putting on/taking off footwear 88-Not attempted due to medical condition or safety concerns - Mobility A. Roll left and right 03-Partial/moderate assistance B. Sit to lying 03-Partial/moderate assistance C. Lying to sitting on side of bed 03-Partial/moderate assistance D. Sit to stand 03-Partial/moderate assistance E. Chair/[id number]-[id number] transfer 03-Partial/moderate assistance F. Toilet transfer 03-Partial/moderate assistance G. Car transfer 88-Not attempted due to medical condition or safety concerns I. Walk 10 feet 03-Partial/moderate assistance J. Walk 50 feet with two turns 88-Not attempted due to medical condition or safety concerns K. Walk 150 feet 88-Not attempted due to medical condition or safety concerns L. Walking 10 feet on uneven surfaces 88-Not attempted due to medical condition or safety concerns M. 1 step (curb) 88-Not attempted due to medical condition or safety concerns N. 4 steps 88-Not attempted due to medical condition or safety concerns O. 12 steps 88-Not attempted due to medical condition or safety concerns P. Picking up object 88-Not attempted due to medical condition or safety concerns R. Wheel 50 feet with two turns 88-Not attempted due to medical condition or safety concerns S. Wheel 150 feet 88-Not attempted due to medical condition or safety concerns - Bladder and Bowel Bladder continence Bowel continence - Endurance Fair - Balance Poor - Safety Awareness Fair CURRENT FUNC. DEFICITS: Self-Care, Mobility, Endurance, Balance, and Safety Awareness CURRENT / PREVIOUS ASSISTIVE DEVICES: Rolling Walker THERAPY NOTES FROM ACUTE CARE: Attached. SPECIAL NEEDS: - Safety Concerns Skin breakdown precautions needed due to skin breakdown risk PATIENT NEEDS ACTIVE AND ONGOING THERAPEUTIC INTERVENTION OF MULTIPLE THERAPY DISCIPLINES, INCLUDING: - Dietary and Nutrition Adequate Nutrition. Nutritional Education. Nutritional Supplements. PATIENT NEEDS CLOSE MEDICAL SUPERVISION BY A REHABILITATION PHYSICIAN FOR: Coordination of Treatment Team PATIENT REQUIRES 24X7 REHAB NURSING FOR MEDICAL AND FUNCTIONAL MGT. OF THE FOLLOWING DEFICITS: Disease Management Medication Management Patient/Family Education Providing Safe Environment PATIENT REQUIRES INTENSIVE, COORDINATED INTERDISCIPLINARY APPROACH TO REHAB: Arranging Home Equipment/Services Discharge Planning Family Intervention/Training [facility] Pricing Consultant/Case Management PATIENT REHAB POTENTIAL: Gal SCRUGGS is able and expected to receive 3 hours of individualized therapy daily on at least 5 o f every 7 days Gal Otoole prognosis for significant practical improvement within a reasonable period of time ap pears Good Expected level of measurable improvement will be of a practical value to Gal SCRUGGS's functional c apacity or adaptations to impairments Has a viable Discharge Plan Medically appropriate; condition is sufficiently stable to participate in intensive rehab program DISCHARGE PLAN: - Estimated Length of Stay (days) 13. - Consensus on plan Discharge plan has been discussed with primary caregiver. Patient/Family is in agreement with the gloria n. Primary caregiver is in agreement with the plan. - Patient/Family Goals Return home independently. - Planned Living Setting Upon Discharge Home, to live alone. Transitional Living. Primary caregiver: Pt self. RECOMMENDED CARE LEVEL: IRF RECOMMENDATION DETAILS: Recommended Admission to Comprehensive Rehabilitation Program to Increase Functional Nathalie SCREENER'S COMPLETENESS CONFIRMATION: - Screening Confirmation The patient data collection on this preadmission screening form is finished PHYSICIANS REVIEW AND ADMISSION DETERMINATION Admit - Based on my review of the Pre-Admission Screening results, in my medical judgment and experie nce, I concur with the findings and recommend admission to [facility], as this patient requires an IRF level of care. SIGNATURE PANEL: Bank Operations Officer - [electronically] signed by Theo Schmitt on 07/20/2020 at 14:00 (METAL BONDING PRESS OPERATOR) Bank Operations Officer - [electronically] signed by Rodney Hennessy PT on 07/20/2020 at 15:20 (METAL BONDING PRESS OPERATOR) Physician Reviewer - [electronically] signed by Dr. Duncan Sierra M.D. on 07/20/2020 at 15:32 (METAL BONDING PRESS OPERATOR )
[2020-07-20 21:02] LABS: Absolute Lymphocytes (CBC) 1.1 K/uL (0.7-4.9); Basophils % 0.1 % (0-1.3); Hematocrit 27.3 % (39.6-49.0); Lymphocytes % 10.5 % (15.3-44.8); MPV 7.5 fL (7.6-11.3); RBC Red Blood Cell Count 2.73 M/uL (4.33-5.43)
[2020-07-20 21:45] VITALS: BMI 20.9
[2020-07-20 22:14] LABS: Urine Appearance CLEAR; Urine Bilirubin NEGATIVE (NEG); Urine Blood NEGATIVE (NEG); Urine Color DK YELLOW; Urine Glucose NEGATIVE (NEG); Urine Protein NEGATIVE (NEG); Urine Specific Gravity 1.015 (1.005-1.030); Urine pH 6.5 (5.0-7.0)
[2020-07-20 22:26] LABS: Urine Bacteria <20 /HPF (NONE SEEN); Urine RBC <5 /HPF (NONE SEEN)
[2020-07-20] MEDS: MELATONIN 3 MG TABLET PO PRN (22:48)
[2020-07-21] MEDS: atenoloL 25 MG TAB PO SCH (04:54)
[2020-07-21 06:20] LABS: Albumin 2.6 g/dL (3.4-5.0); BUN Blood Urea Nitrogen 28 mg/dL (7-18); Bicarbonate 31 mmol/L (21-32); Glucose Level 104 mg/dL (74-106); Magnesium 1.9 mg/dL (1.8-2.4); Potassium 3.4 mmol/L (3.5-5.1); Prealbumin 11.1 mg/dL (20-40); Sodium Level 135 mmol/L (136-145)
[2020-07-21] MEDS ORDERED: predniSONE 20 MG TAB PO SCH (08:00)
[2020-07-21] MEDS: cloNIDine HCL 0.1 MG TAB PO SCH ×2 (08:00→20:00)
[2020-07-21] MEDS: predniSONE 20 MG TAB PO SCH ×2 (08:47→20:01)
[2020-07-21] MEDS: APIXABAN 2.5 MG TABLET PO SCH ×2 (08:48→20:00)
[2020-07-21] MEDS: ACETAMINOPHEN 500 MG TAB PO PRN (08:48)
[2020-07-21] MEDS: allopurinoL 300 MG TAB PO SCH (08:48)
[2020-07-21] MEDS: FOLIC ACID 1 MG TABLET PO SCH (08:48)
[2020-07-21] MEDS: CYANOCOBALAMIN 1,000 MCG TAB PO SCH (10:22)
--- NOTE | 2020-07-21 11:53 | FAST ---
PT QI REPORT FORM ENCOUNTER DATE AND TIME: 07/21/2020 08:00 (DATA CENTER PROJECT MANAGER) NAME DEMETRIUS SCRUGGS DATE OF : 1945 DATE OF ADMISSION: 07/20/2020 19:55 (DATA CENTER PROJECT MANAGER) PHONE: AGE: 75 N# [id number] GENDER: Male ENCOUNTER PHYSICIAN: Dr. Duncan Sierra M.D. ADMISSION DIAGNOSIS: - Debility 16 - Debility (16) Rhabdomyolysis (M62.82). ROLL LEFT AND RIGHT: ROLL LEFT AND RIGHT - STEP 1: Does the patient complete the activity by him/herself with no assistance (physical, verbal/nonverbal cueing, setup/clean-up)? No. ROLL LEFT AND RIGHT - STEP 2: Does the patient need only setup/clean-up assistance from one helper? Yes. 1. [id number] ADMISSION PERFORMANCE: Setup or clean-up assistance CODE: 05 SIT TO LYING: SIT TO LYING - STEP 1: Does the patient complete the activity by him/herself with no assistance (physical, verbal/nonverbal cueing, setup/clean-up)? No. SIT TO LYING - STEP 2: Does the patient need only setup/clean-up assistance from one helper? No. SIT TO LYING - STEP 3: Does the patient need only verbal/nonverbal cueing or touching/steadying/contact guard assistance fro m one helper? Yes. 1. [id number] ADMISSION PERFORMANCE: Supervision or touching assistance CODE: 04 LYING TO SITTING: LYING TO SITTING ON SIDE OF BED - STEP 1: Does the patient complete the activity by him/herself with no assistance (physical, verbal/nonverbal cueing, setup/clean-up)? No. LYING TO SITTING ON SIDE OF BED - STEP 2: Does the patient need only setup/clean-up assistance from one helper? No. LYING TO SITTING ON SIDE OF BED - STEP 3: Does the patient need only verbal/nonverbal cueing or touching/steadying/contact guard assistance fro m one helper? Yes. 1. [id number] ADMISSION PERFORMANCE: Supervision or touching assistance CODE: 04 SIT TO STAND: SIT TO STAND - STEP 1: Does the patient complete the activity by him/herself with no assistance (physical, verbal/nonverbal cueing, setup/clean-up)? No. SIT TO STAND - STEP 2: Does the patient need only setup/clean-up assistance from one helper? No. SIT TO STAND - STEP 3: Does the patient need only verbal/nonverbal cueing or touching/steadying/contact guard assistance fro m one helper? Yes. 1. [id number] ADMISSION PERFORMANCE: Supervision or touching assistance CODE: 04 TRANSFERS: BED, CHAIR: CHAIR/[id number] TRANSFER - STEP 1: Does the patient complete the activity by him/herself with no assistance (physical, verbal/nonverbal cueing, setup/clean-up)? No. CHAIR/MHR-AP-SCWDE TRANSFER - STEP 2: Does the patient need only setup/clean-up assistance from one helper? No. CHAIR/[id number]-[id number] TRANSFER - STEP 3: Does the patient need only verbal/nonverbal cueing or touching/steadying/contact guard assistance fro m one helper? Yes. 1. [id number] ADMISSION PERFORMANCE: Supervision or touching assistance CODE: TRANSFER TOILET: TOILET TRANSFER - STEP 1: Does the patient complete the activity by him/herself with no assistance (physical, verbal/nonverbal cueing, setup/clean-up)? No. TOILET TRANSFER - STEP 2: Does the patient need only setup/clean-up assistance from one helper? No. TOILET TRANSFER - STEP 3: Does the patient need only verbal/nonverbal cueing or touching/steadying/contact guard assistance fro m one helper? Yes. 1. [id number] ADMISSION PERFORMANCE: Supervision or touching assistance CODE: TRANSFERS: CAR: CAR TRANSFER - STEP 1: Does the patient complete the activity by him/herself with no assistance (physical, verbal/nonverbal cueing, setup/clean-up)? No. CAR TRANSFER - STEP 2: Does the patient need only setup/clean-up assistance from one helper? No. CAR TRANSFER - STEP 3: Does the patient need only verbal/nonverbal cueing or touching/steadying/contact guard assistance fro m one helper? No. CAR TRANSFER - STEP 4: Does the patient need physical assistance - for example lifting or trunk support from one helper - wi th the helper providing less than half of the effort? Yes. 1. [id number] ADMISSION PERFORMANCE: Partial/moderate assistance CODE: [id number] - COMMENTS: Mod A with simulation of [employer] SUV with a step up WALK 10 FEET: WALK 10 FEET - STEP 1: Does the patient complete the activity by him/herself with no assistance (physical, verbal/nonverbal cueing, setup/clean-up)? No. WALK 10 FEET - STEP 2: Does the patient need only setup/clean-up assistance from one helper? No. WALK 10 FEET - STEP 3: Does the patient need only verbal/nonverbal cueing or touching/steadying/contact guard assistance fro m one helper? No. WALK 10 FEET - STEP 4: Does the patient need physical assistance - for example lifting or trunk support from one helper - wi th the helper providing less than half of the effort? Yes. 1. [id number] ADMISSION PERFORMANCE: Partial/moderate assistance CODE: 03 WALK 50 FEET: WALK 50 FEET - STEP 1: Does the patient complete the activity by him/herself with no assistance (physical, verbal/nonverbal cueing, setup/clean-up)? No. WALK 50 FEET - STEP 2: Does the patient need only setup/clean-up assistance from one helper? No. WALK 50 FEET - STEP 3: Does the patient need only verbal/nonverbal cueing or touching/steadying/contact guard assistance fro m one helper? No. WALK 50 FEET - STEP 4: Does the patient need physical assistance - for example lifting or trunk support from one helper - wi th the helper providing less than half of the effort? Yes. 1. [id number] ADMISSION PERFORMANCE: Partial/moderate assistance CODE: 03 WALK 150 FEET: WALK 150 FEET - STEP 1: Does the patient complete the activity by him/herself with no assistance (physical, verbal/nonverbal cueing, setup/clean-up)? No. WALK 150 FEET - STEP 2: Does the patient need only setup/clean-up assistance from one helper? No. WALK 150 FEET - STEP 3: Does the patient need only verbal/nonverbal cueing or touching/steadying/contact guard assistance fro m one helper? No. WALK 150 FEET - STEP 4: Does the patient need physical assistance - for example lifting or trunk support from one helper - wi th the helper providing less than half of the effort? Yes. 1. [id number] ADMISSION PERFORMANCE: Partial/moderate assistance CODE: [id number] - COMMENTS: Able to tolerate x 112ft Min A with 2WW and requires rest break of 3-5 min to continue WALK 10 FEET UNEVEN: WALKING 10 FEET ON UNEVEN SURFACES - STEP 1: Does the patient complete the activity by him/herself with no assistance (physical, verbal/nonverbal cueing, setup/clean-up)? No. WALKING 10 FEET ON UNEVEN SURFACES - STEP 2: Does the patient need only setup/clean-up assistance from one helper? No. WALKING 10 FEET ON UNEVEN SURFACES - STEP 3: Does the patient need only verbal/nonverbal cueing or touching/steadying/contact guard assistance fro m one helper? No. WALKING 10 FEET ON UNEVEN SURFACES - STEP 4: Does the patient need physical assistance - for example lifting or trunk support from one helper - wi th the helper providing less than half of the effort? Yes. 1. [id number] ADMISSION PERFORMANCE: Partial/moderate assistance CODE: 03 1 STEP (CURB): 1 STEP CURB - STEP 1: Does the patient complete the activity by him/herself with no assistance (physical, verbal/nonverbal cueing, setup/clean-up)? No. 1 STEP CURB - STEP 2: Does the patient need only setup/clean-up assistance from one helper? No. 1 STEP CURB - STEP 3: Does the patient need only verbal/nonverbal cueing or touching/steadying/contact guard assistance fro m one helper? No. 1 STEP CURB - STEP 4: Does the patient need physical assistance - for example lifting or trunk support from one helper - wi th the helper providing less than half of the effort? Yes. 1. [id number] ADMISSION PERFORMANCE: Partial/moderate assistance CODE: 03 4 STEPS: 4 STEPS - STEP 1: Does the patient complete the activity by him/herself with no assistance (physical, verbal/nonverbal cueing, setup/clean-up)? No. 4 STEPS - STEP 2: Does the patient need only setup/clean-up assistance from one helper? No. 4 STEPS - STEP 3: Does the patient need only verbal/nonverbal cueing or touching/steadying/contact guard assistance fro m one helper? No. 4 STEPS - STEP 4: Does the patient need physical assistance - for example lifting or trunk support from one helper - wi th the helper providing less than half of the effort? Yes. 1. [id number] ADMISSION PERFORMANCE: Partial/moderate assistance CODE: 03 12 STEPS: 12 STEPS - STEP 1: Does the patient complete the activity by him/herself with no assistance (physical, verbal/nonverbal cueing, setup/clean-up)? No. 12 STEPS - STEP 2: Does the patient need only setup/clean-up assistance from one helper? No. 12 STEPS - STEP 3: Does the patient need only verbal/nonverbal cueing or touching/steadying/contact guard assistance fro m one helper? No. 12 STEPS - STEP 4: Does the patient need physical assistance - for example lifting or trunk support from one helper - wi th the helper providing less than half of the effort? No. 12 STEPS - STEP 5: Does the patient need physical assistance - for example lifting or trunk support from one helper - wi th the helper providing more than half of the effort? Yes. 1. [id number] ADMISSION PERFORMANCE: Substantial/maximal assistance CODE: 02 PICKING UP OBJECT: PICKING UP OBJECT - STEP 1: Does the patient complete the activity by him/herself with no assistance (physical, verbal/nonverbal cueing, setup/clean-up)? No. PICKING UP OBJECT - STEP 2: Does the patient need only setup/clean-up assistance from one helper? No. PICKING UP OBJECT - STEP 3: Does the patient need only verbal/nonverbal cueing or touching/steadying/contact guard assistance fro m one helper? No. PICKING UP OBJECT - STEP 4: Does the patient need physical assistance - for example lifting or trunk support from one helper - wi th the helper providing less than half of the effort? Yes. 1. [id number] ADMISSION PERFORMANCE: Partial/moderate assistance CODE: [id number] - COMMENTS: Mod A DOES THE PATIENT USE A WHEELCHAIR/SCOOTER? Q1. DOES THE PATIENT USE A WHEELCHAIR/SCOOTER?: Yes CODE: 1 WHEEL 50 FEET WITH TWO TURNS: WHEEL 50 FEET WITH TWO TURNS - STEP 1: Does the patient complete the activity by him/herself with no assistance (physical, verbal/nonverbal cueing, setup/clean-up)? No. WHEEL 50 FEET WITH TWO TURNS - STEP 2: Does the patient need only setup/clean-up assistance from one helper? No. WHEEL 50 FEET WITH TWO TURNS - STEP 3: Does the patient need only verbal/nonverbal cueing or touching/steadying/contact guard assistance fro m one helper? Yes. 1. [id number] ADMISSION PERFORMANCE: Supervision or touching assistance CODE: 04 INDICATE THE TYPE OF WHEELCHAIR/SCOOTER USED: RR1. INDICATE THE TYPE OF WHEELCHAIR/SCOOTER USED.: Manual CODE: 1 WHEEL 150 FEET: WHEEL 150 FEET - STEP 1: Does the patient complete the activity by him/herself with no assistance (physical, verbal/nonverbal cueing, setup/clean-up)? No. WHEEL 150 FEET - STEP 2: Does the patient need only setup/clean-up assistance from one helper? No. WHEEL 150 FEET - STEP 3: Does the patient need only verbal/nonverbal cueing or touching/steadying/contact guard assistance fro m one helper? Yes. 1. [id number] ADMISSION PERFORMANCE: Supervision or touching assistance CODE: 04 INDICATE THE TYPE OF WHEELCHAIR/SCOOTER USED: SS1. INDICATE THE TYPE OF WHEELCHAIR/SCOOTER USED.: Manual CODE: 1 BLADDER AND BOWEL: CODE: EXPR CODE: EXPR SIGNATURE PANEL: The following modified sections: 1. [id number] Admission Performance, 1. [id number] Admission Performance, 1. [id number] Admission Performance, 1. JP1060M Admission Performance, 1. [id number] Admission Performance, 1. [id number] Admission Performance, 1. [id number] Admission Performance, 1. [id number] Admission Performance , [id number] - Comments:, 1. [id number] Admission Performance, 1. [id number] Admission Performance, 1. [id number] Admission Performance, 1. [id number] Admission Performance, [id number] - Comments:, 1. [id number] Admission P erformance, 1. CV5228H Admission Performance, 1. UK0864A Admission Performance, 1. ZX0818V Admission Performance, 1. RZ1730W Admission Performance, 1. IL3581P Admission Performance, [id number] - Comments:, Q1. Does the patient use a wheelchair/scooter?, 1. [id number] Admission Performance, RR1. Indicate the type of wheelchair/scooter used., 1. [id number] Admission Performance, Code, SS1. Indicate the type of w heelchair/scooter used. were [electronically] signed by Susan Daugherty on Sat Jul 21 2020 11:51:52 G MT-0600 (Central Standard Time)
[2020-07-21] MEDS: ENSURE HIGH PROTEIN 237 ML CAN PO SCH (19:59)
--- NOTE | 2020-07-21 22:04 | R.HP ---
HISTORY AND PHYSICAL FACILITY: [facility] ENCOUNTER DATE AND TIME: 07/20/2020 19:58 (COMMUNITY DEVELOPMENT DIRECTOR) MR#: [id number] NAME DEMETRIUS SCRUGGS ADDRESS: [address] [place] [address] CITY: [place] [address]IP [address] PHONE: DATE OF : 1945 AGE: 75 SSN# [id number] GENDER: Male DEXTERITY Right-handed MARITAL STATUS RACE Unknown race PRE-HOSPITAL LIVING SETTING 01 - Home (private home/apt. board/care, assisted living, correction, transitional living) PRE-HOSPITAL LIVING WITH Alone ENCOUNTER PHYSICIAN: Dr. Duncan Sierra M.D. REFERRING DOCTOR: DATE OF ADMISSION: 07/20/2020 19:55 (COMMUNITY DEVELOPMENT DIRECTOR) REFERRING FACILITY [facility] HOME TYPE AND DETAILS: Type of home: single family house # of levels in the residence: 1 # of steps within the residence: 0 # of steps to enter the residence: 0 ONSET DATE: 07/20/2020 PRIMARY DIAGNOSIS-RELATED SURGERIES: N/A HISTORY OF PRESENT ILLNESS (HPI): Pt. is a 75 yo Right-handed male of unknown race. On 07/20/2020 he was admitted to [facility] with diagnosis Rhabdomyolysis (M62.82). His impairment category is Debility 16 - Debility (16). Pre-morbidly, Pt. was independent/mod-I in Locomotion, Self-Care, Communication, and Endurance; and h e had good Sphincter Control, Transfers Control, and Social Cognition. Currently, he has deficits of Safety Awareness, Locomotion, Balance, Transfers Control, and Endurance . Pt. is now referred to [facility] for acute in-patient rehabilitation in order to maximize patient's functional independence in activities of daily living, strength, ROM, and mobi lity. Patient has realistic goal of being discharged at assistance level 7-Ind to reside at Home with Pt s elf. MEDICATION ALLERGIES: No Known Drug Allergies (NKDA) ENVIRONMENTAL ALLERGIES: - Substance Allergies None Known - Other Allergies None Known PAST MEDICAL HISTORY: HTN HLD GOUT SOCIAL HISTORY: - Home Living Alone REVIEW OF SYSTEMS: - Gen No Chills Fatigue No Fever - Eyes No Double Vision No itchiness - ENMT No Difficulty Swallowing - CVS No Chest Discomfort No Chest Pain Fatigue No Weight Gain - Resp No Cough Shortness of Breath - GI Continent No Abdominal Pain No Constipation No Diarrhea - Continent No Kidney Pain No Painful Urination No Urinary Urgency - MSK Joint Pain Muscle Cramps Stiffness - Skin No Itching No Rash No Suspicious Lesions - Neuro Coordination Difficulty No Difficulty with Concentration No Memory Loss No Seizures Weakness - Psych No Anxiety No Depression No HIV Exposure No Persistent Infections No Seasonal Allergies - Endo No Cold/Heat Intolerance No Excessive Hunger No Excessive Thirst No Excessive Urination PHYSICAL EXAM - Gen Alert and awake Lying in bed No apparent distress Oriented to: person, time, and place - Skin Mild bruising on the arms and forearms. No abnormalities - Eyes No abnormalities - ENMT No abnormalities - Neck No abnormalities - CVS RRR - Chest No abnormalities - Resp Clear to auscultation - Abd Soft - GI + bowel sounds Deferred - No abnormalities - Ext Mild bilateral lower extremity edema. - MSK 4/5 weakness in both lower extremities. - Neuro No focal deficits - Psych No abnormalities VITAL SIGNS Temperature: 97.9 F SBP/DBP: 135/64 Pulse: 79 Resp: 16 Vital signs stable, afebrile NURSING: - Shower allowing shower ACTIVITIES OOB only with supervision QI SCORES: - Self-Care A. Eating 03-Partial/moderate assistance B. Oral hygiene 03-Partial/moderate assistance C. Toileting hygiene 03-Partial/moderate assistance E. Shower/bathe self 03-Partial/moderate assistance F. Upper body dressing 03-Partial/moderate assistance G. Lower body dressing 03-Partial/moderate assistance H. Putting on/taking off footwear 88-Not attempted due to medical condition or safety concerns - Mobility A. Roll left and right 03-Partial/moderate assistance B. Sit to lying 03-Partial/moderate assistance C. Lying to sitting on side of bed 03-Partial/moderate assistance D. Sit to stand 03-Partial/moderate assistance E. Chair/cto-hj-wahmn transfer 03-Partial/moderate assistance F. Toilet transfer 03-Partial/moderate assistance G. Car transfer 88-Not attempted due to medical condition or safety concerns I. Walk 10 feet 03-Partial/moderate assistance J. Walk 50 feet with two turns 88-Not attempted due to medical condition or safety concerns K. Walk 150 feet 88-Not attempted due to medical condition or safety concerns L. Walking 10 feet on uneven surfaces 88-Not attempted due to medical condition or safety concerns M. 1 step (curb) 88-Not attempted due to medical condition or safety concerns N. 4 steps 88-Not attempted due to medical condition or safety concerns O. 12 steps 88-Not attempted due to medical condition or safety concerns P. Picking up object 88-Not attempted due to medical condition or safety concerns R. Wheel 50 feet with two turns 88-Not attempted due to medical condition or safety concerns S. Wheel 150 feet 88-Not attempted due to medical condition or safety concerns - Bladder and Bowel Bladder continence Bowel continence - Endurance Fair - Balance Poor - Safety Awareness Fair CURRENT FUNC. DEFICITS: Self-Care, Mobility, Endurance, Balance, and Safety Awareness MEDICATIONS: - Other See attached MAR (Medication Administration Record) ASSESSMENT: Pt. is a 75 yo Right-handed male of unknown race.On 07/20/2020 he was admitted to [facility] with diagnosis Rhabdomyolysis (M62.82).His impairment category is Debility 16 - Debility (16).P re-morbidly, Pt. was independent/mod-I in Locomotion, Self-Care, Communication, and Endurance; and he had good Sphincter Control, Transfers Control, and Social Cognition.Currently, he has deficits of Sa fety Awareness, Locomotion, Balance, Transfers Control, and Endurance.Pt. is now referred to [facility] for acute in-patient rehabilitation in order to maximize patient's function al independence in activities of daily living, strength, ROM, and mobility.- Rehab Goal Patient has realistic goal of being discharged at assistance level 7-Ind to reside at Home with Pt s elf. - Physical Therapy Gait dysfunction - to improve, our physical therapists will perform initial evaluation of pt's status upon admission and devise an individualized program for Gait Training, and Wheel Chair mobility Inability to transfer - to improve, our physical therapists will perform initial evaluation of pt's s tatus upon admission and devise an individualized program for Bed mobility Need for home safety evaluation - to improve, our physical therapists will perform initial evaluation of pt's status upon admission and devise an individualized program for Home Evaluation Need in caregiver upon discharge - to improve, our physical therapists will perform initial evaluatio n of pt's status upon admission and devise an individualized program for Caregiver Training New precaution - to improve, our physical therapists will perform initial evaluation of pt's status u nahomy admission and devise an individualized program for Patient precaution education Edema - to improve, our physical therapists will perform initial evaluation of pt's status upon admi ssion and devise an individualized program for Elevation Training, and Lymphedema Therapy Poor balance - to improve, our physical therapists will perform initial evaluation of pt's status upo n admission and devise an individualized program for Balance Training Poor endurance - to improve, our physical therapists will perform initial evaluation of pt's status u nahomy admission and devise an individualized program for Endurance Training Weakness - to improve, our physical therapists will perform initial evaluation of pt's status upon ad mission and devise an individualized program for Aquatic Therapy, Neuromuscular Reeducation, and Stre ngthening Achieving independence - to improve, our physical therapists will perform initial evaluation of pt's status upon admission and devise an individualized program for Community Reintegration Activities - Occupational Therapy Need for career center advisor - to improve, our occupation therapists will perform initial evaluation of pt's s tatus upon admission and devise an individualized program for Caregiver Training Weakness - to improve, our occupation therapists will perform initial evaluation of pt's status upon admission and devise an individualized program for Aquatic Therapy, Balance, Endurance, UE ROM, and U E strengthening MEDICAL PLAN: - Diet Type Start Regular - Diet - Liquid Texture Start Regular - Tube Feed Start N/A - Other See attached MAR (Medication Administration Record) - Diet - Solid Texture Regular - Shower shower DISCHARGE PLAN: - Estimated Length of Stay (days) 13. - Consensus on plan Discharge plan has been discussed with primary caregiver. Patient/Family is in agreement with the gloria n. Primary caregiver is in agreement with the plan. - Patient/Family Goals Return home independently. - Planned Living Setting Upon Discharge Home, to live alone. Transitional Living. Primary caregiver: Pt self. SIGNATURE PANEL: (COMMUNITY DEVELOPMENT DIRECTOR)
--- NOTE | 2020-07-21 22:05 | PAPE ---
POST ADMISSION PHYSICIAN EVALUATION PATIENT: [facility] MR# [id number] REFERRING DOCTOR EVALUATION DATE AND TIME 07/21/2020 22:03 (AUTOMOTIVE LIGHT MECHANIC) NAME DEMETRIUS SCRUGGS DATE OF 1945 AGE 75 PHONE SSN# [id number] GENDER male EVALUATING PHYSICIAN Dr. Duncan Sierra M.D. ADMISSION DIAGNOSIS: Rhabdomyolysis (M62.82) ONSET DATE 07/20/2020 POST-ADMISSION FUNCTIONAL/MEDICAL STATUS: - Bladder Same accident frequency: Ind - No accidents in the past 7 days - Bowel Same accident frequency: Ind - No accidents in the past 7 days - Walking Same score based on distance walked: 0(N/A) Same score based on distance walked: 1(<=50ft) - Wheelchair Same score based on distance traveled: 0(N/A) STATUS CHANGE EVALUATION: No change in Functional or Medical Status is identified compared with Pre-Admission screening. PATIENT NEEDS CLOSE MEDICAL SUPERVISION BY A REHABILITATION PHYSICIAN FOR: Coordination of Treatment Team PATIENT REQUIRES 24X7 REHAB NURSING FOR MEDICAL AND FUNCTIONAL MGT. OF THE FOLLOWING DEFICITS: Disease Management Medication Management Patient/Family Education Providing Safe Environment PATIENT REQUIRES INTENSIVE, COORDINATED INTERDISCIPLINARY APPROACH TO REHAB: Arranging Home Equipment/Services Discharge Planning Family Intervention/Training Silver Plater/Case Management LIST OF IDENTIFIED AND POTENTIAL PROBLEMS: Alteration in leisure activities Bladder, Incontinence Bowel, Incontinence Infection, Actual or Potential Mobility Impaired Pain, Alteration in Comfort Self Care Deficit Skin Integrity, Actual or Potential Urinary Tract Infection (UTI), Actual or Potential PATIENT COULD BE AT RISK FOR COMPLICATIONS FROM ADVERSE MEDICAL CONDITIONS DUE TO HIS/HER COMORBIDITI ES AND THE RIGORS OF THE INTENSIVE REHABILLITATION PROGRAM. METHODS OR INTERVENTIONS TO AVOID COMPLIC ATIONS INCLUDE: - Infection Clinical staff to assess and manage the signs and symptoms of infection including fever, redness, war mth, etc. - Urinary Tract Infection - Falls Patient will be evaluated for Fall Precautions and will be placed on Fall Precautions as indicated pe r protocol. - Skin Breakdown Nursing will assess skin daily using assessment tool and will place on Skin Breakdown Precautions as indicated per protocol. - Pain Clinical staff may employ non-medication methods such as massage, distraction, decrease stimulus, etc . as needed. Clinical staff will assess patient's pain level every shift per protocol to assess and e nsure pain management effectiveness. Medications will be given and the pain level re-assessed. PRELIMINARY PLAN OF CARE: - Physical Therapy Patient needs Physical Therapy for a daily minimum of 1.5 hours at least 5 out of 7 days, to improve: Mobility, Strengthening, Transfers, Stretching, ROM, Endurance, Ability to manage stairs, Gait, and Balance. - Speech Therapy Patient needs Speech Therapy for a daily minimum of 0.5 hours at least 5 out of 7 days, to improve: S wallowing, Cognition, Language Skills, and Compensatory Strategies. - Rehabilitation Nursing Patient requires 24x7 Rehabilitation Nursing for: Pain Issues, Identifying and preventing risk factor s, Monitoring and reporting current medical conditions, Assisting with ambulation and transfer, Erika ting with all ADL-s, Teaching patients about disease process and medications, Family teaching, Provid ing safe environment, Bowel and Bladder Issues, Skin Integrity, and Medication Management. Patient needs Silver Plater and/or Case Management for: Discharge Planning, Arranging Home Equipmen t or Services, and Family Interventions. - Dietary and Nutrition Services Patient needs Dietary and Nutrition Services for: Adequate Nutrition, Nutritional Supplements, and Nu tritional Education. - Occupational Therapy Patient needs Occupational Therapy for a daily minimum of 1.5 hours at least 5 out of 7 days, to impr ove Activities of Daily Living, including: Eating, Grooming, Bathing, Dressing, Toileting, Toilet Tra nsfers, Community Reintegration, Higher functional activities, Adaptive Equipment, Splinting, Househo ld Tasks, and Other activities as determined. QI SCORES: - Self-Care A. Eating 03-Partial/moderate assistance B. Oral hygiene 03-Partial/moderate assistance C. Toileting hygiene 03-Partial/moderate assistance E. Shower/bathe self 03-Partial/moderate assistance F. Upper body dressing 03-Partial/moderate assistance G. Lower body dressing 03-Partial/moderate assistance H. Putting on/taking off footwear 88-Not attempted due to medical condition or safety concerns - Mobility A. Roll left and right 03-Partial/moderate assistance B. Sit to lying 03-Partial/moderate assistance C. Lying to sitting on side of bed 03-Partial/moderate assistance D. Sit to stand 03-Partial/moderate assistance E. Chair/[id number] transfer 03-Partial/moderate assistance F. Toilet transfer 03-Partial/moderate assistance G. Car transfer 88-Not attempted due to medical condition or safety concerns I. Walk 10 feet 03-Partial/moderate assistance J. Walk 50 feet with two turns 88-Not attempted due to medical condition or safety concerns K. Walk 150 feet 88-Not attempted due to medical condition or safety concerns L. Walking 10 feet on uneven surfaces 88-Not attempted due to medical condition or safety concerns M. 1 step (curb) 88-Not attempted due to medical condition or safety concerns N. 4 steps 88-Not attempted due to medical condition or safety concerns O. 12 steps 88-Not attempted due to medical condition or safety concerns P. Picking up object 88-Not attempted due to medical condition or safety concerns R. Wheel 50 feet with two turns 88-Not attempted due to medical condition or safety concerns S. Wheel 150 feet 88-Not attempted due to medical condition or safety concerns - Bladder and Bowel Bladder continence Bowel continence - Endurance Fair - Balance Poor - Safety Awareness Fair POTENTIAL FUNCTIONAL GOALS FOR PATIENT TO ACHIEVE BY DISCHARGE: - Safety Precaution Patient will remain free from falls or injury at time of discharge. - Bed Mobility Patient will perform bed mobility at 4-Madison level of assistance. - Transfers Patient will complete transfers from bed to chair at 4-Madison level of assistance. - Mobility Patient will ambulate 150 ft with 4-Madison level of assistance with RW. PATIENT REHAB POTENTIAL Gal SCRUGGS is able and expected to receive 3 hours of individualized therapy daily on at least 5 o f every 7 days Gal SCRUGGS's prognosis for significant practical improvement within a reasonable period of time ap pears Good Expected level of measurable improvement will be of a practical value to Gal SCRUGGS's functional c apacity or adaptations to impairments Has a viable Discharge Plan Medically appropriate; condition is sufficiently stable to participate in intensive rehab program DISCHARGE PLAN: - Estimated Length of Stay (days) 13. - Consensus on plan Discharge plan has been discussed with primary caregiver. Patient/Family is in agreement with the gloria n. Primary caregiver is in agreement with the plan. - Patient/Family Goals Return home independently. - Planned Living Setting Upon Discharge Home, to live alone. Transitional Living. Primary caregiver: Pt self. CONCLUSION ON REHABILITATION NECESSITY: I have evaluated patient's pre-admission functional status and, comparing it to the patient's post-ad mission functional status now, I conclude that the pre-admission assessment was accurate. Patient's c ondition on admission supports the medical necessity of admission to IRF. It is safe to proceed with patient's therapy program. SIGNATURE PANEL: (AUTOMOTIVE LIGHT MECHANIC)
[2020-07-22] MEDS: atenoloL 25 MG TAB PO SCH (05:32)
[2020-07-22] MEDS: cloNIDine HCL 0.1 MG TAB PO SCH ×2 (08:00→19:53)
[2020-07-22] MEDS: CYANOCOBALAMIN 1,000 MCG TAB PO SCH (09:26)
[2020-07-22] MEDS: APIXABAN 2.5 MG TABLET PO SCH ×2 (09:26→19:52)
[2020-07-22] MEDS: predniSONE 20 MG TAB PO SCH ×2 (09:26→19:52)
[2020-07-22] MEDS: allopurinoL 300 MG TAB PO SCH (09:26)
[2020-07-22] MEDS: FOLIC ACID 1 MG TABLET PO SCH (09:27)
[2020-07-22] MEDS: FE SULF/FA/VIT B COMP & C TAB PO SCH (09:27)
[2020-07-22] MEDS: ENSURE HIGH PROTEIN 237 ML CAN PO SCH ×2 (09:31→19:53)
[2020-07-22] MEDS: FERROUS SULFATE 325 MG TAB PO SCH (12:23)
[2020-07-22] MEDS: ZINC OXIDE 20% OINTMENT 60gm TOP SCH (20:00)
[2020-07-23] MEDS: atenoloL 25 MG TAB PO SCH (05:40)
[2020-07-23 05:54] LABS: Absolute Lymphocytes (CBC) 0.8 K/uL (0.7-4.9); Hematocrit 21.4 % (39.6-49.0); Lymphocytes % 11.6 % (15.3-44.8); MPV 7.8 fL (7.6-11.3); RBC Red Blood Cell Count 2.12 M/uL (4.33-5.43)
[2020-07-23 06:04] LABS: BUN Blood Urea Nitrogen 29 mg/dL (7-18); Bicarbonate 28 mmol/L (21-32); Glucose Level 121 mg/dL (74-106); Potassium 3.5 mmol/L (3.5-5.1); Sodium Level 133 mmol/L (136-145)
[2020-07-23] MEDS: ENSURE HIGH PROTEIN 237 ML CAN PO SCH ×2 (08:00→19:51)
[2020-07-23] MEDS: ZINC OXIDE 20% OINTMENT 60gm TOP SCH ×3 (08:00→19:51)
[2020-07-23] MEDS: FE SULF/FA/VIT B COMP & C TAB PO SCH (08:34)
[2020-07-23] MEDS: allopurinoL 300 MG TAB PO SCH (08:34)
[2020-07-23] MEDS: CYANOCOBALAMIN 1,000 MCG TAB PO SCH (08:34)
[2020-07-23] MEDS: FERROUS SULFATE 325 MG TAB PO SCH (08:35)
[2020-07-23] MEDS: cloNIDine HCL 0.1 MG TAB PO SCH ×2 (08:35→19:51)
[2020-07-23] MEDS: predniSONE 20 MG TAB PO SCH ×2 (08:36→19:51)
[2020-07-23] MEDS: FOLIC ACID 1 MG TABLET PO SCH (08:36)
[2020-07-23] MEDS: APIXABAN 2.5 MG TABLET PO SCH ×2 (08:36→19:51)
[2020-07-23] MEDS: ACETAMINOPHEN 500 MG TAB PO PRN (09:53)
[2020-07-23] MEDS ORDERED: NA CHLORIDE 0.9% 250 ML IV SCH (11:00)
[2020-07-23 20:45] LABS: Hematocrit 22.8 % (39.6-49.0)
--- NOTE | 2020-07-24 02:26 | FAST ---
QUALITY [employer] FORM SHIFT START DATE/TIME: 07/23/2020 19:00 (ACCOUNT SERVICES ASSOCIATE) SHIFT END DATE/TIME: 07/24/2020 07:00 (ACCOUNT SERVICES ASSOCIATE) NAME DEMETRIUS SCRUGGS DATE OF : 1945 DATE OF ADMISSION: 07/20/2020 19:55 (ACCOUNT SERVICES ASSOCIATE) PHONE: AGE: 75 SSN# [id number] GENDER: Male ENCOUNTER PHYSICIAN: Dr. Duncan Sierra M.D. ADMISSION DIAGNOSIS: - Debility 16 - Debility (16) Rhabdomyolysis (M62.82). EATING: Not assessed/no information CODE: - ORAL HYGIENE: Not assessed/no information CODE: - TOILETING HYGIENE: TOILETING HYGIENE - STEP 1: Does the patient complete the activity by him/herself with no assistance (physical, verbal/nonverbal cueing, setup/clean-up)? No. TOILETING HYGIENE - STEP 2: Does the patient need only setup/clean-up assistance from one helper? No. TOILETING HYGIENE - STEP 3: Does the patient need only verbal/nonverbal cueing or touching/steadying/contact guard assistance fro m one helper? Yes. 1. [id number] ADMISSION PERFORMANCE: Supervision or touching assistance CODE: 04 BATHING: Not assessed/no information CODE: - DRESSING - UPPER BODY: Not assessed/no information CODE: - DRESSING - LOWER BODY: Not assessed/no information CODE: - PUTTING ON/TAKING OFF FOOTWEAR: Not assessed/no information CODE: - ROLL LEFT AND RIGHT: ROLL LEFT AND RIGHT - STEP 1: Does the patient complete the activity by him/herself with no assistance (physical, verbal/nonverbal cueing, setup/clean-up)? No. ROLL LEFT AND RIGHT - STEP 2: Does the patient need only setup/clean-up assistance from one helper? No. ROLL LEFT AND RIGHT - STEP 3: Does the patient need only verbal/nonverbal cueing or touching/steadying/contact guard assistance fro m one helper? Yes. 1. [id number] ADMISSION PERFORMANCE: Supervision or touching assistance CODE: 04 SIT TO LYING: SIT TO LYING - STEP 1: Does the patient complete the activity by him/herself with no assistance (physical, verbal/nonverbal cueing, setup/clean-up)? No. SIT TO LYING - STEP 2: Does the patient need only setup/clean-up assistance from one helper? No. SIT TO LYING - STEP 3: Does the patient need only verbal/nonverbal cueing or touching/steadying/contact guard assistance fro m one helper? Yes. 1. [id number] ADMISSION PERFORMANCE: Supervision or touching assistance CODE: 04 LYING TO SITTING: LYING TO SITTING ON SIDE OF BED - STEP 1: Does the patient complete the activity by him/herself with no assistance (physical, verbal/nonverbal cueing, setup/clean-up)? No. LYING TO SITTING ON SIDE OF BED - STEP 2: Does the patient need only setup/clean-up assistance from one helper? No. LYING TO SITTING ON SIDE OF BED - STEP 3: Does the patient need only verbal/nonverbal cueing or touching/steadying/contact guard assistance fro m one helper? Yes. 1. [id number] ADMISSION PERFORMANCE: Supervision or touching assistance CODE: 04 SIT TO STAND: SIT TO STAND - STEP 1: Does the patient complete the activity by him/herself with no assistance (physical, verbal/nonverbal cueing, setup/clean-up)? No. SIT TO STAND - STEP 2: Does the patient need only setup/clean-up assistance from one helper? No. SIT TO STAND - STEP 3: Does the patient need only verbal/nonverbal cueing or touching/steadying/contact guard assistance fro m one helper? Yes. 1. [id number] ADMISSION PERFORMANCE: Supervision or touching assistance CODE: 04 TRANSFERS: BED, CHAIR: Not assessed/no information CODE: - TRANSFER TOILET: TOILET TRANSFER - STEP 1: Does the patient complete the activity by him/herself with no assistance (physical, verbal/nonverbal cueing, setup/clean-up)? No. TOILET TRANSFER - STEP 2: Does the patient need only setup/clean-up assistance from one helper? No. TOILET TRANSFER - STEP 3: Does the patient need only verbal/nonverbal cueing or touching/steadying/contact guard assistance fro m one helper? Yes. 1. [id number] ADMISSION PERFORMANCE: Supervision or touching assistance CODE: 04 TRANSFERS: CAR: Not assessed/no information CODE: - WALK 10 FEET: Not assessed/no information CODE: - 1 STEP (CURB): Not assessed/no information CODE: - PICKING UP OBJECT: Not assessed/no information CODE: - DOES THE PATIENT USE A WHEELCHAIR/SCOOTER? CODE: EXPR WHEEL 50 FEET WITH TWO TURNS: Not assessed/no information CODE: - INDICATE THE TYPE OF WHEELCHAIR/SCOOTER USED: CODE: EXPR WHEEL 150 FEET: Not assessed/no information CODE: - INDICATE THE TYPE OF WHEELCHAIR/SCOOTER USED: CODE: EXPR BLADDER AND BOWEL: H350. BLADDER CONTINENCE (3-DAY ASSESSMENT PERIOD): Always continent (no documented incontinence) CODE: 0 H400. BOWEL CONTINENCE (3-DAY ASSESSMENT PERIOD): Always continent CODE: 0
[2020-07-24] MEDS: atenoloL 25 MG TAB PO SCH (05:14)
[2020-07-24] MEDS: ENSURE HIGH PROTEIN 237 ML CAN PO SCH ×2 (08:00→08:19)
[2020-07-24] MEDS: FERROUS SULFATE 325 MG TAB PO SCH (08:18)
[2020-07-24] MEDS: CYANOCOBALAMIN 1,000 MCG TAB PO SCH (08:18)
[2020-07-24] MEDS: ZINC OXIDE 20% OINTMENT 60gm TOP SCH ×2 (08:18→19:59)
[2020-07-24] MEDS: allopurinoL 300 MG TAB PO SCH (08:19)
[2020-07-24] MEDS: FE SULF/FA/VIT B COMP & C TAB PO SCH (08:19)
[2020-07-24] MEDS: cloNIDine HCL 0.1 MG TAB PO SCH ×2 (08:19→19:59)
[2020-07-24] MEDS: APIXABAN 2.5 MG TABLET PO SCH ×2 (08:20→19:59)
[2020-07-24] MEDS: predniSONE 20 MG TAB PO SCH (08:20)
[2020-07-24] MEDS: FOLIC ACID 1 MG TABLET PO SCH (08:20)
--- NOTE | 2020-07-24 17:46 | R.PN ---
PROGRESS NOTES ENCOUNTER DATE AND TIME: 07/24/2020 17:33 (INTERLIBRARY LOAN SPECIALIST) NAME DEMETRIUS SCRUGGS DATE OF : 1945 DATE OF ADMISSION: 07/20/2020 19:55 (INTERLIBRARY LOAN SPECIALIST) Rhabdomyolysis (M62.82)CHIEF COMPLAINT: Diffuse weakness SUBJECTIVE: Pt denied any depression. Pt denied any Shortness of Breath. He had an episode of orthostatic hypotension with SBP drop of 53 mmHg and symptoms from lying to zaheer ding. Abdominal binder, lower extremity PAZ will be placed while holding BP meds if SBP is less than 130. Hgb was low at 7.5 and increased to 8.0 after one unit of PRBCs. Self-propelled wheelchair 100' with standby assistance. He ambulated 148' with contact guard assistan ce using a rolling walker. VITAL SIGNS Temperature: 97.9 F SBP/DBP: 135/64 Pulse: 79 Resp: 16 Vital signs stable, afebrile MEDICATION ALLERGIES: No Known Drug Allergies (NKDA) ENVIRONMENTAL ALLERGIES: - Substance Allergies None Known - Other Allergies None Known NURSING: - Shower allowing shower ACTIVITIES OOB only with supervision THERAPIES: - Dietary and Nutrition Adequate Nutrition. Nutritional Education. Nutritional Supplements. PHYSICAL EXAM - Gen Alert and awake Lying in bed No apparent distress Oriented to: person, time, and place - Skin Mild bruising on the arms and forearms. No abnormalities - Eyes No abnormalities - ENMT No abnormalities - Neck No abnormalities - CVS RRR - Chest No abnormalities - Resp Clear to auscultation - Abd Soft - GI + bowel sounds Deferred - No abnormalities - Ext Mild bilateral lower extremity edema. - MSK 4/5 weakness in both lower extremities. - Neuro No focal deficits - Psych No abnormalities ASSESSMENT: Pt. is a 75 yo Right-handed male of unknown race.On 07/20/2020 he was admitted to [facility] with diagnosis Rhabdomyolysis (M62.82).His impairment category is Debility 16 - Debility (16).P re-morbidly, Pt. was independent/mod-I in Locomotion, Self-Care, Communication, and Endurance; and he had good Sphincter Control, Transfers Control, and Social Cognition.Currently, he has deficits of Sa fety Awareness, Locomotion, Balance, Transfers Control, and Endurance.Pt. is now referred to [facility] for acute in-patient rehabilitation in order to maximize patient's function al independence in activities of daily living, strength, ROM, and mobility.- Rehab Goal Patient has realistic goal of being discharged at assistance level 7-Ind to reside at Home with Pt s elf. MDM/PLAN: - Physical Therapy Gait dysfunction - to improve, our physical therapists will perform initial evaluation of pt's statu s upon admission and devise an individualized program for Gait Training, and Wheel Chair mobility Inability to transfer - to improve, our physical therapists will perform initial evaluation of pt's status upon admission and devise an individualized program for Bed mobility Need for home safety evaluation - to improve, our physical therapists will perform initial evaluatio n of pt's status upon admission and devise an individualized program for Home Evaluation Need in caregiver upon discharge - to improve, our physical therapists will perform initial evaluati on of pt's status upon admission and devise an individualized program for Caregiver Training New precaution - to improve, our physical therapists will perform initial evaluation of pt's status upon admission and devise an individualized program for Patient precaution education Edema - to improve, our physical therapists will perform initial evaluation of pt's status upon admis shaun and devise an individualized program for Elevation Training, and Lymphedema Therapy Poor balance - to improve, our physical therapists will perform initial evaluation of pt's status up on admission and devise an individualized program for Balance Training Poor endurance - to improve, our physical therapists will perform initial evaluation of pt's status upon admission and devise an individualized program for Endurance Training Weakness - to improve, our physical therapists will perform initial evaluation of pt's status upon a dmission and devise an individualized program for Aquatic Therapy, Neuromuscular Reeducation, and Str engthening Achieving independence - to improve, our physical therapists will perform initial evaluation of pt's status upon admission and devise an individualized program for Community Reintegration Activities - Occupational Therapy Need for companion caregiver - to improve, our occupation therapists will perform initial evaluation of pt's status upon admission and devise an individualized program for Caregiver Training Weakness - to improve, our occupation therapists will perform initial evaluation of pt's status upon admission and devise an individualized program for Aquatic Therapy, Balance, Endurance, UE ROM, and UE strengthening - Other See attached MAR (Medication Administration Record) - Diet Type Continue Regular - Diet - Liquid Texture Continue Regular - Tube Feed Continue N/A - Diet - Solid Texture Continue Regular - Shower allowing shower FUNCTIONAL STATUS: UPDATED AT WEEKLY TEAM CONFERENCE - Bladder Same accident frequency: 7-Ind - No accidents in the past 7 days - Bowel Same accident frequency: 7-Ind - No accidents in the past 7 days - Walking Same score based on distance walked: 0(N/A) Same score based on distance walked: 1(<=50ft) - Wheelchair Same score based on distance traveled: 0(N/A) FUNCTIONAL STATUS: - Self-Care A. Eating Ind B. Grooming John C. Bathing sup D. Dressing - Upper sup E. Dressing - Lower Madison F. Toileting Madison - Sphincter Control G. Bladder control Madison H. Bowel control sup - Transfers Control I. Bed/Chair/Wheelchair Madison J. Toilet Madison K. Tub/Shower modA - Locomotion L. Walk/Wheelchair (B) sup M. Stairs maxA - Communication N. Comprehension (B) Madison O. Expression (B) sup - Social Cognition P. Social Interaction sup Q. Problem Solving sup R. Memory sup - Endurance Fair - Balance Fair - Safety Awareness Fair QI SCORES: - Self-Care A. Eating 03-Partial/moderate assistance B. Oral hygiene 03-Partial/moderate assistance C. Toileting hygiene 03-Partial/moderate assistance E. Shower/bathe self 03-Partial/moderate assistance F. Upper body dressing 03-Partial/moderate assistance G. Lower body dressing 03-Partial/moderate assistance H. Putting on/taking off footwear 88-Not attempted due to medical condition or safety concerns - Mobility A. Roll left and right 03-Partial/moderate assistance B. Sit to lying 03-Partial/moderate assistance C. Lying to sitting on side of bed 03-Partial/moderate assistance D. Sit to stand 03-Partial/moderate assistance E. Chair/biq-ft-belop transfer 03-Partial/moderate assistance F. Toilet transfer 03-Partial/moderate assistance G. Car transfer 88-Not attempted due to medical condition or safety concerns I. Walk 10 feet 03-Partial/moderate assistance J. Walk 50 feet with two turns 88-Not attempted due to medical condition or safety concerns K. Walk 150 feet 88-Not attempted due to medical condition or safety concerns L. Walking 10 feet on uneven surfaces 88-Not attempted due to medical condition or safety concerns M. 1 step (curb) 88-Not attempted due to medical condition or safety concerns N. 4 steps 88-Not attempted due to medical condition or safety concerns O. 12 steps 88-Not attempted due to medical condition or safety concerns P. Picking up object 88-Not attempted due to medical condition or safety concerns R. Wheel 50 feet with two turns 88-Not attempted due to medical condition or safety concerns S. Wheel 150 feet 88-Not attempted due to medical condition or safety concerns - Bladder and Bowel Bladder continence Bowel continence - Endurance Fair - Balance Poor - Safety Awareness Fair CURRENT [facility]. DEFICITS: Self-Care, Mobility, Endurance, Balance, and Safety Awareness SIGNATURE PANEL: (INTERLIBRARY LOAN SPECIALIST)
[2020-07-25] MEDS: atenoloL 25 MG TAB PO SCH (05:01)
[2020-07-25] MEDS: cloNIDine HCL 0.1 MG TAB PO SCH ×2 (08:00→21:18)
[2020-07-25] MEDS: CYANOCOBALAMIN 1,000 MCG TAB PO SCH (08:37)
[2020-07-25] MEDS: allopurinoL 300 MG TAB PO SCH (08:37)
[2020-07-25] MEDS: FE SULF/FA/VIT B COMP & C TAB PO SCH (08:37)
[2020-07-25] MEDS: ZINC OXIDE 20% OINTMENT 60gm TOP SCH ×2 (08:37→21:19)
[2020-07-25] MEDS: predniSONE 20 MG TAB PO SCH (08:38)
[2020-07-25] MEDS: FERROUS SULFATE 325 MG TAB PO SCH (08:38)
[2020-07-25] MEDS: FOLIC ACID 1 MG TABLET PO SCH (08:39)
[2020-07-25] MEDS: APIXABAN 2.5 MG TABLET PO SCH ×2 (09:44→21:19)
--- NOTE | 2020-07-25 18:05 | R.PN ---
PROGRESS NOTES ENCOUNTER DATE AND TIME: 07/25/2020 18:01 (RADIO FREQUENCY ENGINEER) NAME DEMETRIUS SCRUGGS DATE OF : 1945 DATE OF ADMISSION: 07/20/2020 19:55 (RADIO FREQUENCY ENGINEER) Rhabdomyolysis (M62.82)CHIEF COMPLAINT: Diffuse weakness SUBJECTIVE: Pt denied any depression. Pt denied any Shortness of Breath. He had an episode of orthostatic hypotension with SBP drop of 53 mmHg and symptoms from lying to zaheer ding. Abdominal binder, lower extremity PAZ will be placed while holding BP meds if SBP is less than 130. Hgb was low at 7.5 and increased to 8.0 after one unit of PRBCs. Self-propelled wheelchair 250' with standby assistance. He ambulated 550' with contact guard assistan ce using a rolling walker. VITAL SIGNS Temperature: 97.8 F SBP/DBP: 95 to 126/48 to 53 Pulse: 78 Resp: 16 MEDICATION ALLERGIES: No Known Drug Allergies (NKDA) ENVIRONMENTAL ALLERGIES: - Substance Allergies None Known - Other Allergies None Known NURSING: - Shower allowing shower ACTIVITIES OOB only with supervision THERAPIES: - Dietary and Nutrition Adequate Nutrition. Nutritional Education. Nutritional Supplements. PHYSICAL EXAM - Gen Alert and awake Lying in bed No apparent distress Oriented to: person, time, and place - Skin Mild bruising on the arms and forearms. No abnormalities - Eyes No abnormalities - ENMT No abnormalities - Neck No abnormalities - CVS RRR - Chest No abnormalities - Resp Clear to auscultation - Abd Soft - GI + bowel sounds Deferred - No abnormalities - Ext Mild bilateral lower extremity edema. - MSK 4/5 weakness in both lower extremities. - Neuro No focal deficits - Psych No abnormalities ASSESSMENT: Pt. is a 75 yo Right-handed male of unknown race.On 07/20/2020 he was admitted to [facility] with diagnosis Rhabdomyolysis (M62.82).His impairment category is Debility 16 - Debility (16).P re-morbidly, Pt. was independent/mod-I in Locomotion, Self-Care, Communication, and Endurance; and he had good Sphincter Control, Transfers Control, and Social Cognition.Currently, he has deficits of Sa fety Awareness, Locomotion, Balance, Transfers Control, and Endurance.Pt. is now referred to [facility] for acute in-patient rehabilitation in order to maximize patient's function al independence in activities of daily living, strength, ROM, and mobility.- Rehab Goal Patient has realistic goal of being discharged at assistance level 7-Ind to reside at Home with Pt s elf. MDM/PLAN: - Physical Therapy Gait dysfunction - to improve, our physical therapists will perform initial evaluation of pt's statu s upon admission and devise an individualized program for Gait Training, and Wheel Chair mobility Inability to transfer - to improve, our physical therapists will perform initial evaluation of pt's status upon admission and devise an individualized program for Bed mobility Need for home safety evaluation - to improve, our physical therapists will perform initial evaluatio n of pt's status upon admission and devise an individualized program for Home Evaluation Need in caregiver upon discharge - to improve, our physical therapists will perform initial evaluati on of pt's status upon admission and devise an individualized program for Caregiver Training New precaution - to improve, our physical therapists will perform initial evaluation of pt's status upon admission and devise an individualized program for Patient precaution education Edema - to improve, our physical therapists will perform initial evaluation of pt's status upon admi ssion and devise an individualized program for Elevation Training, and Lymphedema Therapy Poor balance - to improve, our physical therapists will perform initial evaluation of pt's status up on admission and devise an individualized program for Balance Training Poor endurance - to improve, our physical therapists will perform initial evaluation of pt's status upon admission and devise an individualized program for Endurance Training Weakness - to improve, our physical therapists will perform initial evaluation of pt's status upon a dmission and devise an individualized program for Aquatic Therapy, Neuromuscular Reeducation, and Str engthening Achieving independence - to improve, our physical therapists will perform initial evaluation of pt's status upon admission and devise an individualized program for Community Reintegration Activities - Occupational Therapy Need for technical healthcare consultant - to improve, our occupation therapists will perform initial evaluation of pt's status upon admission and devise an individualized program for Caregiver Training Weakness - to improve, our occupation therapists will perform initial evaluation of pt's status upon admission and devise an individualized program for Aquatic Therapy, Balance, Endurance, UE ROM, and UE strengthening - Other See attached MAR (Medication Administration Record) - Diet Type Continue Regular - Diet - Liquid Texture Continue Regular - Tube Feed Continue N/A - Diet - Solid Texture Continue Regular - Shower allowing shower FUNCTIONAL STATUS: UPDATED AT WEEKLY TEAM CONFERENCE - Bladder Same accident frequency: 7-Ind - No accidents in the past 7 days - Bowel Same accident frequency: 7-Ind - No accidents in the past 7 days - Walking Same score based on distance walked: 0(N/A) Same score based on distance walked: 1(<=50ft) - Wheelchair Same score based on distance traveled: 0(N/A) FUNCTIONAL STATUS: - Self-Care A. Eating Ind B. Grooming John C. Bathing sup D. Dressing - Upper sup E. Dressing - Lower [place] F. Toileting [place] - Sphincter Control G. Bladder control Madison H. Bowel control sup - Transfers Control I. Bed/Chair/Wheelchair [place] J. Toilet [place] K. Tub/Shower modA - Locomotion L. Walk/Wheelchair (B) sup M. Stairs maxA - Communication N. Comprehension (B) [place] O. Expression (B) sup - Social Cognition P. Social Interaction sup Q. Problem Solving sup R. Memory sup - Endurance Fair - Balance Fair - Safety Awareness Fair QI SCORES: - Self-Care A. Eating 03-Partial/moderate assistance B. Oral hygiene 03-Partial/moderate assistance C. Toileting hygiene 03-Partial/moderate assistance E. Shower/bathe self 03-Partial/moderate assistance F. Upper body dressing 03-Partial/moderate assistance G. Lower body dressing 03-Partial/moderate assistance H. Putting on/taking off footwear 88-Not attempted due to medical condition or safety concerns - Mobility A. Roll left and right 03-Partial/moderate assistance B. Sit to lying 03-Partial/moderate assistance C. Lying to sitting on side of bed 03-Partial/moderate assistance D. Sit to stand 03-Partial/moderate assistance E. Chair/qep-oo-glwso transfer 03-Partial/moderate assistance F. Toilet transfer 03-Partial/moderate assistance G. Car transfer 88-Not attempted due to medical condition or safety concerns I. Walk 10 feet 03-Partial/moderate assistance J. Walk 50 feet with two turns 88-Not attempted due to medical condition or safety concerns K. Walk 150 feet 88-Not attempted due to medical condition or safety concerns L. Walking 10 feet on uneven surfaces 88-Not attempted due to medical condition or safety concerns M. 1 step (curb) 88-Not attempted due to medical condition or safety concerns N. 4 steps 88-Not attempted due to medical condition or safety concerns O. 12 steps 88-Not attempted due to medical condition or safety concerns P. Picking up object 88-Not attempted due to medical condition or safety concerns R. Wheel 50 feet with two turns 88-Not attempted due to medical condition or safety concerns S. Wheel 150 feet 88-Not attempted due to medical condition or safety concerns - Bladder and Bowel Bladder continence Bowel continence - Endurance Fair - Balance Poor - Safety Awareness Fair CURRENT [facility]. DEFICITS: Self-Care, Mobility, Endurance, Balance, and Safety Awareness SIGNATURE PANEL: (RADIO FREQUENCY ENGINEER)
[2020-07-26] MEDS: atenoloL 25 MG TAB PO SCH (05:48)
[2020-07-26 06:55] LABS: Albumin 2.6 g/dL (3.4-5.0); BUN Blood Urea Nitrogen 16 mg/dL (7-18); Bicarbonate 26 mmol/L (21-32); Glucose Level 82 mg/dL (74-106); Magnesium 1.7 mg/dL (1.8-2.4); Potassium 3.3 mmol/L (3.5-5.1); Prealbumin 13.8 mg/dL (20-40); Sodium Level 131 mmol/L (136-145)
[2020-07-26 07:01] LABS: Absolute Lymphocytes (CBC) 1.9 K/uL (0.7-4.9); Basophils % 0.2 % (0-1.3); Hematocrit 21.8 % (39.6-49.0); Lymphocytes % 22.5 % (15.3-44.8); MPV 7.8 fL (7.6-11.3); RBC Red Blood Cell Count 2.15 M/uL (4.33-5.43)
[2020-07-26] MEDS: cloNIDine HCL 0.1 MG TAB PO SCH ×2 (08:00→21:11)
[2020-07-26] MEDS: ZINC OXIDE 20% OINTMENT 60gm TOP SCH ×2 (08:00→21:12)
[2020-07-26] MEDS: CYANOCOBALAMIN 1,000 MCG TAB PO SCH (09:30)
[2020-07-26] MEDS: FERROUS SULFATE 325 MG TAB PO SCH (09:30)
[2020-07-26] MEDS: predniSONE 20 MG TAB PO SCH (09:30)
[2020-07-26] MEDS: FOLIC ACID 1 MG TABLET PO SCH (09:31)
[2020-07-26] MEDS: allopurinoL 300 MG TAB PO SCH (09:31)
[2020-07-26] MEDS: FE SULF/FA/VIT B COMP & C TAB PO SCH (12:47)
[2020-07-26] MEDS ORDERED: NA CHLORIDE 0.9% 250 ML ONE (14:46)
--- NOTE | 2020-07-26 18:28 | R.PN ---
PROGRESS NOTES ENCOUNTER DATE AND TIME: 07/26/2020 18:22 (CHRONIC MANAGER) NAME DEMETRIUS SCRUGGS DATE OF : 1945 DATE OF ADMISSION: 07/20/2020 19:55 (CHRONIC MANAGER) Rhabdomyolysis (M62.82)CHIEF COMPLAINT: Diffuse weakness SUBJECTIVE: Pt denied any depression. Pt denied any Shortness of Breath. Abdominal binder, lower extremity PAZ will be placed while holding BP meds if SBP is less than 130. H gb is low at 7.4. He will receive 2 units of PRBCs. Stools will be guaiaced x 3. Self-propelled wheelchair 250' with standby assistance. He ambulated 550' with contact guard assistan ce using a rolling walker. VITAL SIGNS Temperature: 98.6 F SBP/DBP: 116/67 Pulse: 67 Resp: 16 MEDICATION ALLERGIES: No Known Drug Allergies (NKDA) ENVIRONMENTAL ALLERGIES: - Substance Allergies None Known - Other Allergies None Known NURSING: - Shower allowing shower ACTIVITIES OOB only with supervision THERAPIES: - Dietary and Nutrition Adequate Nutrition. Nutritional Education. Nutritional Supplements. PHYSICAL EXAM - Gen Alert and awake Lying in bed No apparent distress Oriented to: person, time, and place - Skin Mild bruising on the arms and forearms. No abnormalities - Eyes No abnormalities - ENMT No abnormalities - Neck No abnormalities - CVS RRR - Chest No abnormalities - Resp Clear to auscultation - Abd Soft - GI + bowel sounds Deferred - No abnormalities - Ext Mild bilateral lower extremity edema. - MSK 4/5 weakness in both lower extremities. - Neuro No focal deficits - Psych No abnormalities ASSESSMENT: Pt. is a 75 yo Right-handed male of unknown race.On 07/20/[address] [facility] with diagnosis Rhabdomyolysis (M62.82).His impairment category is Debility 16 - Debility (16).P re-morbidly, Pt. was independent/mod-I in Locomotion, Self-Care, Communication, and Endurance; and he had good Sphincter Control, Transfers Control, and Social Cognition.Currently, he has deficits of Sa fety Awareness, Locomotion, Balance, Transfers Control, and Endurance.Pt. is now referred to [facility] for acute in-patient rehabilitation in order to maximize patient's function al independence in activities of daily living, strength, ROM, and mobility.- Rehab Goal Patient has realistic goal of being discharged at assistance level 7-Ind to reside at Home with Pt s elf. MDM/PLAN: - Physical Therapy Gait dysfunction - to improve, our physical therapists will perform initial evaluation of pt's statu s upon admission and devise an individualized program for Gait Training, and Wheel Chair mobility Inability to transfer - to improve, our physical therapists will perform initial evaluation of pt's status upon admission and devise an individualized program for Bed mobility Need for home safety evaluation - to improve, our physical therapists will perform initial evaluatio n of pt's status upon admission and devise an individualized program for Home Evaluation Need in caregiver upon discharge - to improve, our physical therapists will perform initial evaluati on of pt's status upon admission and devise an individualized program for Caregiver Training New precaution - to improve, our physical therapists will perform initial evaluation of pt's status upon admission and devise an individualized program for Patient precaution education Edema - to improve, our physical therapists will perform initial evaluation of pt's status upon admi ssion and devise an individualized program for Elevation Training, and Lymphedema Therapy Poor balance - to improve, our physical therapists will perform initial evaluation of pt's status up on admission and devise an individualized program for Balance Training Poor endurance - to improve, our physical therapists will perform initial evaluation of pt's status upon admission and devise an individualized program for Endurance Training Weakness - to improve, our physical therapists will perform initial evaluation of pt's status upon a dmission and devise an individualized program for Aquatic Therapy, Neuromuscular Reeducation, and Str engthening Achieving independence - to improve, our physical therapists will perform initial evaluation of pt's status upon admission and devise an individualized program for Community Reintegration Activities - Occupational Therapy Need for elderly caregiver - to improve, our occupation therapists will perform initial evaluation of pt's status upon admission and devise an individualized program for Caregiver Training Weakness - to improve, our occupation therapists will perform initial evaluation of pt's status upon admission and devise an individualized program for Aquatic Therapy, Balance, Endurance, UE ROM, and UE strengthening - Other See attached MAR (Medication Administration Record) - Diet Type Continue Regular - Diet - Liquid Texture Continue Regular - Tube Feed Continue N/A - Diet - Solid Texture Continue Regular - Shower allowing shower FUNCTIONAL STATUS: UPDATED AT WEEKLY TEAM CONFERENCE - Bladder Same accident frequency: 7-Ind - No accidents in the past 7 days - Bowel Same accident frequency: 7-Ind - No accidents in the past 7 days - Walking Same score based on distance walked: 0(N/A) Same score based on distance walked: 1(<=50ft) - Wheelchair Same score based on distance traveled: 0(N/A) FUNCTIONAL STATUS: - Self-Care A. Eating Ind B. Grooming John C. Bathing sup D. Dressing - Upper sup E. Dressing - Lower [place] F. Toileting [place] - Sphincter Control G. Bladder control Madison H. Bowel control sup - Transfers Control I. Bed/Chair/Wheelchair [place] J. Toilet [place] K. Tub/Shower modA - Locomotion L. Walk/Wheelchair (B) sup M. Stairs maxA - Communication N. Comprehension (B) [place] O. Expression (B) sup - Social Cognition P. Social Interaction sup Q. Problem Solving sup R. Memory sup - Endurance Fair - Balance Fair - Safety Awareness Fair QI SCORES: - Self-Care A. Eating 03-Partial/moderate assistance B. Oral hygiene 03-Partial/moderate assistance C. Toileting hygiene 03-Partial/moderate assistance E. Shower/bathe self 03-Partial/moderate assistance F. Upper body dressing 03-Partial/moderate assistance G. Lower body dressing 03-Partial/moderate assistance H. Putting on/taking off footwear 88-Not attempted due to medical condition or safety concerns - Mobility A. Roll left and right 03-Partial/moderate assistance B. Sit to lying 03-Partial/moderate assistance C. Lying to sitting on side of bed 03-Partial/moderate assistance D. Sit to stand 03-Partial/moderate assistance E. Chair/aii-re-pxqpw transfer 03-Partial/moderate assistance F. Toilet transfer 03-Partial/moderate assistance G. Car transfer 88-Not attempted due to medical condition or safety concerns I. Walk 10 feet 03-Partial/moderate assistance J. Walk 50 feet with two turns 88-Not attempted due to medical condition or safety concerns K. Walk 150 feet 88-Not attempted due to medical condition or safety concerns L. Walking 10 feet on uneven surfaces 88-Not attempted due to medical condition or safety concerns M. 1 step (curb) 88-Not attempted due to medical condition or safety concerns N. 4 steps 88-Not attempted due to medical condition or safety concerns O. 12 steps 88-Not attempted due to medical condition or safety concerns P. Picking up object 88-Not attempted due to medical condition or safety concerns R. Wheel 50 feet with two turns 88-Not attempted due to medical condition or safety concerns S. Wheel 150 feet 88-Not attempted due to medical condition or safety concerns - Bladder and Bowel Bladder continence Bowel continence - Endurance Fair - Balance Poor - Safety Awareness Fair CURRENT [facility]. DEFICITS: Self-Care, Mobility, Endurance, Balance, and Safety Awareness SIGNATURE PANEL: (CHRONIC MANAGER)
[2020-07-26] MEDS ORDERED: POTASSIUM CL SA 10 MEQ TAB PO ONE (19:40)
[2020-07-26] MEDS: MAGNESIUM OXIDE 400 MG TAB PO SCH (21:12)
[2020-07-27] MEDS: atenoloL 25 MG TAB PO SCH (05:22)
[2020-07-27] MEDS: ZINC OXIDE 20% OINTMENT 60gm TOP SCH ×2 (08:00→20:00)
[2020-07-27] MEDS: FERROUS SULFATE 325 MG TAB PO SCH (08:00)
[2020-07-27] MEDS: MAGNESIUM OXIDE 400 MG TAB PO SCH ×2 (08:00→20:00)
[2020-07-27] MEDS: CYANOCOBALAMIN 1,000 MCG TAB PO SCH (08:00)
[2020-07-27] MEDS: predniSONE 10 MG TAB PO SCH (08:00)
[2020-07-27] MEDS: allopurinoL 300 MG TAB PO SCH (08:00)
[2020-07-27] MEDS: cloNIDine HCL 0.1 MG TAB PO SCH ×2 (08:00→20:42)
[2020-07-27] MEDS: FOLIC ACID 1 MG TABLET PO SCH (08:32)
[2020-07-27 09:26] LABS: Hematocrit 29.2 % (39.6-49.0)
--- NOTE | 2020-07-27 09:51 | P.RH.PN ---
Estimated Length of Stay: 12 Expected Discharge Date: 07/31/20 Discharge Disposition Plan: Home Family Support: Yes Nursing Home Goal: Mobility, Transfers, Self Care Vital Signs: Last Vital Signs Temp 97.2 F 07/27/20 07:51 Pulse 82 07/27/20 08:00 Resp 16 07/27/20 07:51 BP 143/74 H 07/27/20 08:00 Pulse Ox 99 07/27/20 07:51 Laboratory: Laboratory Last Values WBC 8.3 K/uL (4.3-10.9) D 07/26/20 06:09 RBC 2.15 M/uL (4.33-5.43) L 07/26/20 06:09 Hgb Cancelled 07/27/20 Unknown Hct 29.2 % (39.6-49.0) L D 07/27/20 09:16 MCV 101.1 fL (80-100) H 07/26/20 06:09 MCH 34.4 pg (27.0-35.0) 07/26/20 06:09 MCHC 34.0 g/dL (32.0-36.0) 07/26/20 06:09 RDW 15.7 % (12.1-15.2) H D 07/26/20 06:09 Plt Count 223 K/uL (152-406) D 07/26/20 06:09 MPV 7.8 fL (7.6-11.3) 07/26/20 06:09 Neutrophils % 64.6 % (41.7-73.7) 07/26/20 06:09 Lymphocytes % 22.5 % (15.3-44.8) 07/26/20 06:09 Monocytes % 11.9 % (3.3-12.3) 07/26/20 06:09 Eosinophils % 0.8 % (0-4.4) 07/26/20 06:09 Basophils % 0.2 % (0-1.3) 07/26/20 06:09 Absolute Neutrophils 5.4 K/uL (1.8-8.0) 07/26/20 06:09 Absolute Lymphocytes 1.9 K/uL (0.7-4.9) 07/26/20 06:09 Absolute Monocytes 1.0 K/uL (0.1-1.3) 07/26/20 06:09 Absolute Eosinophils 0.1 K/uL (0-0.5) 07/26/20 06:09 Absolute Basophils 0.0 K/uL (0-0.5) 07/26/20 06:09 Sodium 131 mmol/L (136-145) L 07/26/20 06:09 Potassium 3.3 mmol/L (3.5-5.1) L 07/26/20 06:09 Chloride 99 mmol/L (98-107) 07/26/20 06:09 Carbon Dioxide 26 mmol/L (21-32) 07/26/20 06:09 BUN 16 mg/dL (7-18) 07/26/20 06:09 Creatinine 0.47 mg/dL (0.55-1.3) L 07/26/20 06:09 Estimated GFR > 90 mL/min (=/>90) 07/26/20 06:09 Glucose 82 mg/dL (74-106) 07/26/20 06:09 Calcium 8.3 mg/dL (8.5-10.1) L 07/26/20 06:09 Magnesium 1.7 mg/dL (1.8-2.4) L 07/26/20 06:09 Albumin 2.6 g/dL (3.4-5.0) L 07/26/20 06:09 Prealbumin 13.8 mg/dL (20-40) L 07/26/20 06:09 Urine Color Dk yellow 07/20/20 21:10 Urine Appearance Clear 07/20/20 21:10 Urine pH 6.5 (5.0-7.0) 07/20/20 21:10 Ur Specific [place] 1.015 (1.005-1.030) 07/20/20 21:10 Glucose (UA)(Auto) Negative (NEG) 07/20/20 21:10 Urine Ketones Negative (NEG) 07/20/20 21:10 Urine Blood Negative (NEG) 07/20/20 21:10 Urine Nitrite Negative (NEG) 07/20/20 21:10 Urine Bilirubin Negative (NEG) 07/20/20 21:10 Urine Urobilinogen 4.0 mg/dL (0.2-1.0) H 07/20/20 21:10 Ur Leukocyte Esterase Negative (NEG) 07/20/20 21:10 Urine RBC <5 /HPF (NONE SEEN) 07/20/20 21:10 Urine WBC <5 /HPF (<5) 07/20/20 21:10 Ur Squamous Epith Cells <5 /HPF (NONE SEEN) 07/20/20 21:10 Urine Bacteria <20 /HPF (NONE SEEN) 07/20/20 21:10 Urine Culture Reflexed Not needed 07/20/20 21:10 Urine Total Protein Negative (NEG) 07/20/20 21:10 ABO/Rh A NEGATIVE 07/27/20 03:00 Solid Phase Ab Screen Negative 07/27/20 03:00 Crossmatch See Detail 07/27/20 03:00 Weight: 153 lb 6.4 oz Wound Present: No Closed Surgical Incision Present: No Negative Pressure Wound Therapy Present: No Physician Update: He is walking at least 250' with the rolling walker. His has marked orthostatic hypotension. Labs are better after 2 units of PRBCs. Hgb 9.8. Comment: multiple bruises and skin tears from fall at home Functional Improvement: pt has demonstrated progress with functional activity. pt has been limited due to hypotension with resulting dizziness. At this time, pt is able to perform all functional activity with SBA. Summary: Patient's care plan and continuous churn buttermaker goals have been reviewed and revised as necessary. Please see the Rehabilitation Signature page for all necessary signatures.
[2020-07-27] MEDS: FE SULF/FA/VIT B COMP & C TAB PO SCH (11:40)
[2020-07-27] MEDS: DOCUSATE NA/SENNA CONC 1 TAB PO PRN (20:43)
[2020-07-28] MEDS: atenoloL 25 MG TAB PO SCH (05:34)
[2020-07-28] MEDS: CYANOCOBALAMIN 1,000 MCG TAB PO SCH (08:00)
[2020-07-28] MEDS: cloNIDine HCL 0.1 MG TAB PO SCH ×2 (08:00→20:06)
[2020-07-28] MEDS: ZINC OXIDE 20% OINTMENT 60gm TOP SCH ×2 (08:00→20:00)
[2020-07-28] MEDS: MAGNESIUM OXIDE 400 MG TAB PO SCH ×2 (09:43→20:00)
[2020-07-28] MEDS: FERROUS SULFATE 325 MG TAB PO SCH (09:44)
[2020-07-28] MEDS: FOLIC ACID 1 MG TABLET PO SCH (09:44)
[2020-07-28] MEDS: predniSONE 10 MG TAB PO SCH (09:44)
[2020-07-28] MEDS: allopurinoL 300 MG TAB PO SCH (09:44)
[2020-07-28] MEDS: FE SULF/FA/VIT B COMP & C TAB PO SCH (09:45)
[2020-07-28] MEDS: DOCUSATE NA/SENNA CONC 1 TAB PO PRN (20:05)
[2020-07-28] MEDS: MELATONIN 3 MG TABLET PO PRN (20:06)
[2020-07-29] MEDS: atenoloL 25 MG TAB PO SCH (05:24)
[2020-07-29] MEDS: cloNIDine HCL 0.1 MG TAB PO SCH ×2 (08:00→20:16)
[2020-07-29] MEDS: FERROUS SULFATE 325 MG TAB PO SCH (08:57)
[2020-07-29] MEDS: FOLIC ACID 1 MG TABLET PO SCH (08:57)
[2020-07-29] MEDS: FE SULF/FA/VIT B COMP & C TAB PO SCH (08:57)
[2020-07-29] MEDS: predniSONE 10 MG TAB PO SCH (08:58)
[2020-07-29] MEDS: CYANOCOBALAMIN 1,000 MCG TAB PO SCH (08:58)
[2020-07-29] MEDS: allopurinoL 300 MG TAB PO SCH (08:58)
[2020-07-29] MEDS: ZINC OXIDE 20% OINTMENT 60gm TOP SCH ×2 (08:59→20:00)
[2020-07-29] MEDS: MAGNESIUM OXIDE 400 MG TAB PO SCH ×2 (09:30→20:17)
[2020-07-29] MEDS: DOCUSATE NA/SENNA CONC 1 TAB PO PRN (20:16)
[2020-07-29] MEDS: MELATONIN 3 MG TABLET PO PRN (20:17)
[2020-07-30] MEDS: atenoloL 25 MG TAB PO SCH (05:08)
[2020-07-30 05:57] LABS: Absolute Lymphocytes (CBC) 1.8 K/uL (0.7-4.9); Basophils % 0.2 % (0-1.3); Hematocrit 30.7 % (39.6-49.0); Lymphocytes % 19.5 % (15.3-44.8); MPV 6.6 fL (7.6-11.3); RBC Red Blood Cell Count 3.11 M/uL (4.33-5.43)
[2020-07-30 06:13] LABS: BUN Blood Urea Nitrogen 13 mg/dL (7-18); Bicarbonate 28 mmol/L (21-32); Glucose Level 92 mg/dL (74-106); Potassium 3.8 mmol/L (3.5-5.1); Sodium Level 131 mmol/L (136-145)
[2020-07-30] MEDS: ZINC OXIDE 20% OINTMENT 60gm TOP SCH ×2 (08:00→20:00)
[2020-07-30] MEDS: MAGNESIUM OXIDE 400 MG TAB PO SCH ×2 (08:27→20:31)
[2020-07-30] MEDS: CYANOCOBALAMIN 1,000 MCG TAB PO SCH (08:27)
[2020-07-30] MEDS: predniSONE 10 MG TAB PO SCH (08:28)
[2020-07-30] MEDS: FERROUS SULFATE 325 MG TAB PO SCH (08:28)
[2020-07-30] MEDS: FE SULF/FA/VIT B COMP & C TAB PO SCH (08:28)
[2020-07-30] MEDS: FOLIC ACID 1 MG TABLET PO SCH (08:28)
[2020-07-30] MEDS: allopurinoL 300 MG TAB PO SCH (08:29)
[2020-07-30] MEDS: cloNIDine HCL 0.1 MG TAB PO SCH ×2 (09:27→20:00)
--- NOTE | 2020-07-30 18:48 | R.PN ---
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 Pt denied any Shortness of Breath. Abdominal binder, lower extremity PAZ will be placed while holding BP meds if SBP is less than 130. H gb improved to 11.1. BMP is stable. He ambulated 1000' with independence using a rolling walker. VITAL SIGNS Temperature: 97.6 F SBP/DBP: 142/67 Pulse: 75 Resp: 16 MEDICATION ALLERGIES: No Known Drug Allergies (NKDA) ENVIRONMENTAL ALLERGIES: - Substance Allergies None Known - Other Allergies None Known NURSING: - Shower allowing shower ACTIVITIES OOB only with supervision THERAPIES: - Dietary and Nutrition Adequate Nutrition. Nutritional Education. Nutritional Supplements. PHYSICAL EXAM - Gen Alert and awake Lying in bed No apparent distress Oriented to: person, time, and place - Skin Mild bruising on the arms and forearms. No abnormalities - Eyes No abnormalities - ENMT No abnormalities - Neck No abnormalities - CVS RRR - Chest No abnormalities - Resp Clear to auscultation - Abd Soft - GI + bowel sounds Deferred - No abnormalities - Ext Mild bilateral lower extremity edema. - MSK 4/5 weakness in both lower extremities. - Neuro No focal deficits - Psych No abnormalities ASSESSMENT: Pt. is a 75 yo Right-handed male of unknown race.On 07/20/[address] [facility] with diagnosis Rhabdomyolysis (M62.82).His impairment category is Debility 16 - Debility (16).P re-morbidly, Pt. was independent/mod-I in Locomotion, Self-Care, Communication, and Endurance; and he had good Sphincter Control, Transfers Control, and Social Cognition.Currently, he has deficits of Sa fety Awareness, Locomotion, Balance, Transfers Control, and Endurance.Pt. is now referred to [facility] for acute in-patient rehabilitation in order to maximize patient's function al independence in activities of daily living, strength, ROM, and mobility.- Rehab Goal Patient has realistic goal of being discharged at assistance level 7-Ind to reside at Home with Pt s elf. MDM/PLAN: - Physical Therapy Gait dysfunction - to improve, our physical therapists will perform initial evaluation of pt's statu s upon admission and devise an individualized program for Gait Training, and Wheel Chair mobility Inability to transfer - to improve, our physical therapists will perform initial evaluation of pt's status upon admission and devise an individualized program for Bed mobility Need for home safety evaluation - to improve, our physical therapists will perform initial evaluatio n of pt's status upon admission and devise an individualized program for Home Evaluation Need in caregiver upon discharge - to improve, our physical therapists will perform initial evaluati on of pt's status upon admission and devise an individualized program for Caregiver Training New precaution - to improve, our physical therapists will perform initial evaluation of pt's status upon admission and devise an individualized program for Patient precaution education Edema - to improve, our physical therapists will perform initial evaluation of pt's status upon admi ssion and devise an individualized program for Elevation Training, and Lymphedema Therapy Poor balance - to improve, our physical therapists will perform initial evaluation of pt's status up on admission and devise an individualized program for Balance Training Poor endurance - to improve, our physical therapists will perform initial evaluation of pt's status upon admission and devise an individualized program for Endurance Training Weakness - to improve, our physical therapists will perform initial evaluation of pt's status upon a dmission and devise an individualized program for Aquatic Therapy, Neuromuscular Reeducation, and Str engthening Achieving independence - to improve, our physical therapists will perform initial evaluation of pt's status upon admission and devise an individualized program for Community Reintegration Activities - Occupational Therapy Need for team primary care physician - to improve, our occupation therapists will perform initial evaluation of pt's status upon admission and devise an individualized program for Caregiver Training Weakness - to improve, our occupation therapists will perform initial evaluation of pt's status upon admission and devise an individualized program for Aquatic Therapy, Balance, Endurance, UE ROM, and UE strengthening - Other See attached MAR (Medication Administration Record) - Diet Type Continue Regular - Diet - Liquid Texture Continue Regular - Tube Feed Continue N/A - Diet - Solid Texture Continue Regular - Shower allowing shower FUNCTIONAL STATUS: UPDATED AT WEEKLY TEAM CONFERENCE - Bladder Same accident frequency: 7-Ind - No accidents in the past 7 days - Bowel Same accident frequency: 7-Ind - No accidents in the past 7 days - Walking Same score based on distance walked: 0(N/A) Same score based on distance walked: 1(<=50ft) - Wheelchair Same score based on distance traveled: 0(N/A) FUNCTIONAL STATUS: - Self-Care A. Eating Ind B. Grooming John C. Bathing sup D. Dressing - Upper sup E. Dressing - Lower Madison F. Toileting Madison - Sphincter Control G. Bladder control Madison H. Bowel control sup - Transfers Control I. Bed/Chair/Wheelchair Madison J. Toilet Madison K. Tub/Shower modA - Locomotion L. Walk/Wheelchair (B) sup M. Stairs maxA - Communication N. Comprehension (B) Madison O. Expression (B) sup - Social Cognition P. Social Interaction sup Q. Problem Solving sup R. Memory sup - Endurance Fair - Balance Fair - Safety Awareness Fair QI SCORES: - Self-Care A. Eating 03-Partial/moderate assistance B. Oral hygiene 03-Partial/moderate assistance C. Toileting hygiene 03-Partial/moderate assistance E. Shower/bathe self 03-Partial/moderate assistance F. Upper body dressing 03-Partial/moderate assistance G. Lower body dressing 03-Partial/moderate assistance H. Putting on/taking off footwear 88-Not attempted due to medical condition or safety concerns - Mobility A. Roll left and right 03-Partial/moderate assistance B. Sit to lying 03-Partial/moderate assistance C. Lying to sitting on side of bed 03-Partial/moderate assistance D. Sit to stand 03-Partial/moderate assistance E. Chair/ywa-mb-fgyzp transfer 03-Partial/moderate assistance F. Toilet transfer 03-Partial/moderate assistance G. Car transfer 88-Not attempted due to medical condition or safety concerns I. Walk 10 feet 03-Partial/moderate assistance J. Walk 50 feet with two turns 88-Not attempted due to medical condition or safety concerns K. Walk 150 feet 88-Not attempted due to medical condition or safety concerns L. Walking 10 feet on uneven surfaces 88-Not attempted due to medical condition or safety concerns M. 1 step (curb) 88-Not attempted due to medical condition or safety concerns N. 4 steps 88-Not attempted due to medical condition or safety concerns O. 12 steps 88-Not attempted due to medical condition or safety concerns P. Picking up object 88-Not attempted due to medical condition or safety concerns R. Wheel 50 feet with two turns 88-Not attempted due to medical condition or safety concerns S. Wheel 150 feet 88-Not attempted due to medical condition or safety concerns - Bladder and Bowel Bladder continence Bowel continence - Endurance Fair - Balance Poor - Safety Awareness Fair CURRENT [facility]. 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
[2020-07-31] MEDS: atenoloL 25 MG TAB PO SCH (05:20)
[2020-07-31 07:47] VITALS: BP 132/67; TEMP 98.3
[2020-07-31] MEDS: ZINC OXIDE 20% OINTMENT 60gm TOP SCH (08:19)
[2020-07-31] MEDS: MAGNESIUM OXIDE 400 MG TAB PO SCH (08:19)
[2020-07-31] MEDS: cloNIDine HCL 0.1 MG TAB PO SCH (08:19)
[2020-07-31] MEDS: FERROUS SULFATE 325 MG TAB PO SCH (08:20)
[2020-07-31] MEDS: CYANOCOBALAMIN 1,000 MCG TAB PO SCH (08:20)
[2020-07-31] MEDS: FE SULF/FA/VIT B COMP & C TAB PO SCH (08:20)
[2020-07-31] MEDS: FOLIC ACID 1 MG TABLET PO SCH (08:20)
[2020-07-31] MEDS: allopurinoL 300 MG TAB PO SCH (08:20)
--- NOTE | 2020-08-10 15:41 | R.DS ---
DISCHARGE SUMMARY FACILITY [facility] MR# [id number] NAME DEMETRIUS SCRUGGS ADDRESS [address] [address] PHONE DATE OF 1945 AGE 75 SSN# [id number] GENDER Male DEXTERITY Right-handed MARITAL STATUS RACE Unknown race ENCOUNTER PHYSICIAN Dr. Duncan Sierra M.D. REFERRING DOCTOR REFERRING FACILITY [facility] DISCHARGE DIAGNOSIS: - Debility 16 - Debility (16) Rhabdomyolysis (M62.82). 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 NURSING: - Shower allowing shower ACTIVITIES OOB only with supervision THERAPIES: - Dietary and Nutrition Adequate Nutrition Nutritional Education Nutritional Supplements HISTORY OF PRESENT ILLNESS: Pt. is a 75 yo Right-handed male of unknown race.On 07/20/2020 he was admitted to [facility] with diagnosis Rhabdomyolysis (M62.82).His impairment category is Debility 16 - Debility (16).P re-morbidly, Pt. was independent/mod-I in Locomotion, Self-Care, Communication, and Endurance; and he had good Sphincter Control, Transfers Control, and Social Cognition.Currently, he has deficits of Sa fety Awareness, Locomotion, Balance, Transfers Control, and Endurance.Pt. is now referred to [facility] for acute in-patient rehabilitation in order to maximize patient's function al independence in activities of daily living, strength, ROM, and mobility.- Rehab Goal Patient has realistic goal of being discharged at assistance level 7-Ind to reside at Home with Pt s elf. DIET - LIQUID TEXTURE: On 07/20/2020 Pt was upgraded to Regular Diet - Liquid Texture. DIET - SOLID TEXTURE: On 07/20/2020 Pt was upgraded to Regular Diet - Solid Texture. DIET TYPE: On 07/20/2020 Pt was upgraded to Regular Diet Type. TUBE FEED: On 07/20/2020 Pt was changed to N/A Tube Feed. DISCHARGE PHYSICAL EXAM - Gen Alert and awake Lying in bed No apparent distress Oriented to: person, time, and place - Skin Mild bruising on the arms and forearms. No abnormalities - Eyes No abnormalities - ENMT No abnormalities - Neck No abnormalities - CVS RRR - Chest No abnormalities - Resp Clear to auscultation - Abd Soft - GI + bowel sounds Deferred - No abnormalities - Ext Mild bilateral lower extremity edema. - MSK 4/5 weakness in both lower extremities. - Neuro No focal deficits - Psych No abnormalities FUNCTIONAL STATUS: - Self-Care A. Eating 7-Ind B. Grooming 6-John C. Bathing 6-John D. Dressing - Upper 6-John E. Dressing - Lower 6-John F. Toileting 6-John - Sphincter Control G. Bladder control 6-John H. Bowel control 6-John - Transfers Control I. Bed/Chair/Wheelchair 4-Madison J. Toilet 6-John K. Tub/Shower 6-John - Locomotion L. Walk/Wheelchair (B) 6-John M. Stairs 6-John - Communication N. Comprehension (B) 6-John O. Expression (B) 6-John - Social Cognition P. Social Interaction 6-John Q. Problem Solving 6-John R. Memory 5-sup - Endurance Good - Balance Good - Safety Awareness Good QI SCORES: - Self-Care A. Eating 03-Partial/moderate assistance B. Oral hygiene 03-Partial/moderate assistance C. Toileting hygiene 03-Partial/moderate assistance E. Shower/bathe self 03-Partial/moderate assistance F. Upper body dressing 03-Partial/moderate assistance G. Lower body dressing 03-Partial/moderate assistance H. Putting on/taking off footwear 88-Not attempted due to medical condition or safety concerns - Mobility A. Roll left and right 03-Partial/moderate assistance B. Sit to lying 03-Partial/moderate assistance C. Lying to sitting on side of bed 03-Partial/moderate assistance D. Sit to stand 03-Partial/moderate assistance E. Chair/bgk-xk-armje transfer 03-Partial/moderate assistance F. Toilet transfer 03-Partial/moderate assistance G. Car transfer 88-Not attempted due to medical condition or safety concerns I. Walk 10 feet 03-Partial/moderate assistance J. Walk 50 feet with two turns 88-Not attempted due to medical condition or safety concerns K. Walk 150 feet 88-Not attempted due to medical condition or safety concerns L. Walking 10 feet on uneven surfaces 88-Not attempted due to medical condition or safety concerns M. 1 step (curb) 88-Not attempted due to medical condition or safety concerns N. 4 steps 88-Not attempted due to medical condition or safety concerns O. 12 steps 88-Not attempted due to medical condition or safety concerns P. Picking up object 88-Not attempted due to medical condition or safety concerns R. Wheel 50 feet with two turns 88-Not attempted due to medical condition or safety concerns S. Wheel 150 feet 88-Not attempted due to medical condition or safety concerns - Bladder and Bowel Bladder continence Bowel continence - Endurance Fair - Balance Poor - Safety Awareness Fair DISCHARGE INSTRUCTIONS: - N/A Eliquis 2.5 mg twice daily. DISCHARGE PLAN, FOLLOW UP CARE PROVISIONS: - Estimated Length of Stay (days) 13. - Consensus on plan Discharge plan has been discussed with primary caregiver. Patient/Family is in agreement with the gloria n. Primary caregiver is in agreement with the plan. - Patient/Family Goals Return home independently. - Planned Living Setting Upon Discharge Home, to live alone. Transitional Living. Primary caregiver: Pt self. 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
== END 2020-07-31 14:20 | disposition home health service (06) | DRG 558 ==
LOC: 5TH 19:55 → EDBD 19:55
PROVIDERS: ADMIT Psychiatry & Neurology Neurology with Special Qualifications in Child Neurology; ATTEND Psychiatry & Neurology Neurology with Special Qualifications in Child Neurology
PROC: 30233N1 Transfusion of Nonautologous Red Blood Cells into Peripheral Vein, Percutaneous Approach (ICD-10-PCS; principal; 2020-07-23)
DX: M62.82 Rhabdomyolysis (principal); E78.5 Hyperlipidemia, unspecified; I10 Essential (primary) hypertension; M10.9 Gout, unspecified; I95.1 Orthostatic hypotension; Z20.822 Contact with and (suspected) exposure to COVID-19
CPT/HCPCS: 36415; 70450; 71045; 72125; 80048; 80053; 80061; 80076; 81001; 82040; 82085; 82274; 82550; 82553; 82607; 82746; 82947; 83540; 83690; 83735; 83880; 84100; 84134; 84484; 85014; 85018; 85025; 85044; 85610; 85652; 85730; 86140; 86850; 86900; 86901; 87086; 87088; 93005; 93306; 93880; 96360; 96361; 97110; 97112; 97116; 97124; 97161; 97530; 97542; 99285; J1720; J3420; J3475; J7030; J7040; J7050; J7512; P9016; U0002; U0003

== ENCOUNTER 2022-01-01 07:23 | Emergency (ER) | payer OTHER, MEDICARE ==
--- NOTE | 2022-01-01 08:00 | EDPHYS ---
Physician Documentation [facility] Name: Abbe Mcknight Age: 76 yrs Sex: Male : 1945 Arrival Date: 01/01/2022 Time: 07:35 Bed 7 Private MD: ED Physician Fritz De La Rosa HPI: 01/01 07:54 This 76 yrs old Male presents to ER via EMS with complaints of Dizziness. laci 07:54 The patient presents with dizziness, generalized weakness, lightheadedness. Onset: The laci symptoms/episode began/occurred just prior to arrival. Context: occurred at home. Modifying factors: The symptoms are alleviated by lying down, the symptoms are aggravated by standing up. Associated signs and symptoms: Pertinent positives: abdominal pain, shortness of breath. Severity of symptoms: At their worst the symptoms were moderate in the emergency department the symptoms are unchanged. Patient's baseline: Neuro: alert and fully oriented. The patient has experienced a previous episode, approximately 3 years ago. Historical: - Allergies: 07:35 No Known Allergies; aa5 - Home Meds: 07:35 benazepril 40 mg oral tab 1 tab once daily [Active]; atenolol 25 mg Oral tab 1 tab once aa5 daily [Active]; atorvastatin 40 mg oral tab 1 tab once daily [Active]; clonidine HCl 0.1 mg Oral tab 2 times per day [Active]; allopurinol 300 mg Oral tab 1 tab once daily [Active]; - PMHx: 07:35 Hyperlipidemia; Hypertension; aa5 - Family history:: not pertinent. ROS: 07:54 Constitutional: Negative for fever, chills, and weight loss, Eyes: Negative for injury, laci pain, redness, and discharge, ENT: Negative for injury, pain, and discharge, Neck: Negative for injury, pain, and swelling, Cardiovascular: Negative for chest pain, palpitations, and edema, Respiratory: Negative for shortness of breath, cough, wheezing, and pleuritic chest pain, Back: Negative for injury and pain, : Negative for injury, bleeding, discharge, and swelling, MS/Extremity: Negative for injury and deformity, Psych: Negative for depression, anxiety, suicide ideation, homicidal ideation, and hallucinations, Allergy/Immunology: Negative for hives, rash, and allergies, Endocrine: Negative for neck swelling, polydipsia, polyuria, polyphagia, and marked weight changes, Hematologic/Lymphatic: Negative for swollen nodes, abnormal bleeding, and unusual bruising. 07:54 Abdomen/GI: Positive for black/tarry stool. 07:54 Skin: Positive for pallor. Exam: 07:54 Constitutional: This is a well developed, well nourished patient who is awake, alert, laci and in no acute distress. Head/Face: Normocephalic, atraumatic. Eyes: Pupils equal round and reactive to light, extra-ocular motions intact. Lids and lashes normal. Conjunctiva and sclera are non-icteric and not injected. Cornea within normal limits. Periorbital areas with no swelling, redness, or edema. ENT: Nares patent. No nasal discharge, no septal abnormalities noted. Tympanic membranes are normal and external auditory canals are clear. Oropharynx with no redness, swelling, or masses, exudates, or evidence of obstruction, uvula midline. Mucous membranes moist. Neck: Trachea midline, no thyromegaly or masses palpated, and no cervical lymphadenopathy. Supple, full range of motion without nuchal rigidity, or vertebral point tenderness. No Meningismus. Chest/axilla: Normal chest wall appearance and motion. Nontender with no deformity. No lesions are appreciated. Respiratory: Lungs have equal breath sounds bilaterally, clear to auscultation and percussion. No rales, rhonchi or wheezes noted. No increased work of breathing, no retractions or nasal flaring. Back: No spinal tenderness. No costovertebral tenderness. Full range of motion. Male : Normal genitalia with no discharge or lesions. MS/ Extremity: Pulses equal, no cyanosis. Neurovascular intact. Full, normal range of motion. Psych: Awake, alert, with orientation to person, place and time. Behavior, mood, and affect are within normal limits. 07:54 Cardiovascular: Rate: tachycardic, Rhythm: regular, Pulses: Pulses are 4+ in bilateral radial, brachial, femoral, popliteal, posterior tibial and and dorsalis pedis arteries.. Heart sounds: normal, Edema: is not appreciated, JVD: is not appreciated. 08:04 ECG was reviewed by the Attending Physician. [facility] 08:04 Abdomen/GI: Rectal exam: Prostate: normal, rectal tone normal, Stool: guaiac positive, no melena, Liver: no appreciated palpable abnormalities, Hernia: not appreciated. Vital Signs: 07:35 BP 141 / 87; Pulse 101; Resp 16 S; Temp 98.7(O); Pulse Ox 100% on R/A; Pain 0/10; aa5 08:48 BP 122 / 69; Pulse 103; Resp 18 S; Pulse Ox 100% on R/A; aa5 10:38 BP 119 / 76; Pulse 85; Resp 18 S; Temp 97.9(TE); Pulse Ox 100% on R/A; aa5 11:07 BP 120 / 59; Pulse 77; Resp 19 S; Temp 97.6(TE); Pulse Ox 100% on R/A; aa5 11:22 BP 133 / 63; Pulse 73; Resp 16; Temp 97.6(TE); Pulse Ox 100% on R/A; aa5 11:52 BP 142 / 72; Pulse 75; Resp 18 S; Temp 98.0(TE); Pulse Ox 100% on R/A; aa5 12:32 BP 117 / 67; Pulse 72; Resp 16 S; Temp 98.4(TE); Pulse Ox 100% on R/A; aa5 13:09 BP 133 / 63; Pulse 75; Resp 16; Temp 98.2(TE); Pulse Ox 100% on R/A; aa5 MDM: 07:50 Patient medically screened. laci 07:58 Differential diagnosis: cardiac arrhythmia, generalized weakness, GI bleed, laci hypovolemia, idiopathic dizziness, sepsis. Data reviewed: vital signs, nurses notes, EMS record, lab test result(s), EKG, radiologic studies, CT scan, plain films. 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 Test interpretation: by ED physician or midlevel provider: ECG, plain radiologic studies. Counseling: I had a detailed discussion with the patient and/or guardian regarding: the historical points, exam findings, and any diagnostic results supporting the discharge/admit diagnosis, lab results, radiology results, the need to transfer to another facility, for higher level of care, [facility] does not immediately have the required specialist. 01/01 07:52 Order name: Occult Blood--Ancillary; Complete Time: 08:49 bd 01/01 07:54 Order name: Basic Metabolic Panel; Complete Time: 08:49 [facility] 01/01 07:54 Order name: CBC with Diff; Complete Time: 08:49 [facility] 01/01 07:54 Order name: LFT's; Complete Time: 08:49 [facility] 01/01 07:54 Order name: Magnesium; Complete Time: 08:49 [facility] 01/01 07:54 Order name: NT PRO-BNP; Complete Time: 08:49 [facility] 01/01 07:54 Order name: PT-INR; Complete Time: 08:49 [facility] 01/01 07:54 Order name: Troponin HS; Complete Time: 08:49 [facility] 01/01 07:54 Order name: Lipase; Complete Time: 08:49 [facility] 01/01 07:54 Order name: Type And Screen [facility] 01/01 07:54 Order name: SARS-COV-2 RT PCR (Document "Date of Onset" if Symptomatic) [facility] 01/01 07:54 Order name: Lactate; Complete Time: 08:49 [facility] 01/01 08:04 Order name: Bb Add On bd 01/01 08:08 Order name: Packed RBC Leukored [facility] 01/01 07:54 Order name: XRAY Chest (1 view) [facility] 01/01 07:54 Order name: EKG; Complete Time: 07:55 [facility] 01/01 07:54 Order name: Cardiac monitoring; Complete Time: 08:04 [facility] 01/01 07:54 Order name: CT Abd/Pelvis - Without Contrast; Complete Time: 08:49 [facility] 01/01 11:53 Order name: Lactate Sepsis 2 HR Follow-up [facility] 01/01 07:54 Order name: EKG - Nurse/Tech; Complete Time: 08:04 [facility] 01/01 07:54 Order name: IV Saline Lock; Complete Time: 08:04 [facility] 01/01 07:54 Order name: Labs collected and sent; Complete Time: 08:04 [facility] 01/01 07:54 Order name: O2 Per Protocol; Complete Time: 08:04 [facility] 01/01 07:54 Order name: O2 Sat Monitoring; Complete Time: 08:04 [facility] 01/01 08:59 Order name: Transfuse; Complete Time: 11:48 [facility] EC:04 Rate is 97 beats/min. Rhythm is regular. QRS [place] is Normal. MT interval is normal. QRS laci interval is normal. QT interval is normal. No Q waves. T waves are Normal. No ST changes noted. Clinical impression: NSR w/ Non-specific ST/T Changes and No evidence of ischemia. Interpreted by me. Reviewed by me. Administered Medications: 08:50 Drug: ProTONIX (pantoprazole) 80 mg Route: IVP; Site: right forearm; aa5 08:55 Follow up: Response: No adverse reaction aa5 08:50 Drug: ProTONIX (pantoprazole) 8 mg/hr Route: IV; Rate: 25 ml/hr; Site: left antecubital;aa5 08:50 Drug: NS 0.9% 500 ml Route: IV; Rate: bolus; Site: right forearm; aa5 09:23 Follow up: IV Status: Completed infusion; IV Intake: 500ml aa5 08:50 Drug: NS 0.9% 1000 ml Route: IV; Rate: 125 ml/hr; Site: right forearm; aa5 08:52 Drug: Flagyl (metroNIDAZOLE) 500 mg Volume: 100 ml; Route: IVPB; Rate: 200 ml/hr; aa5 Infused Over: 30 mins; Site: right forearm; 09:23 Follow up: Response: No adverse reaction; IV Status: Completed infusion aa5 09:25 Drug: Cipro (ciprofloxacin) 400 mg Volume: 200 ml; Route: IVPB; Infused Over: 60 mins; aa5 Site: right forearm; 10:26 Follow up: IV Status: Completed infusion; IV Intake: 200ml ss 09:25 Drug: NS 0.9% 500 ml Route: IV; Rate: bolus; Site: right forearm; aa5 10:26 Follow up: IV Status: Completed infusion; IV Intake: 500ml ss 09:32 Drug: Magnesium Sulfate 1 grams Route: IVPB; Infused Over: 1 hrs; Site: right aa5 antecubital; 10:30 Follow up: IV Status: Completed infusion ss 10:38 Drug: Tylenol 650 mg Route: PO; aa5 10:38 Drug: Benadryl (diphenhydrAMINE) 12.5 mg Route: IVP; Site: right antecubital; aa5 Disposition Summary: 01/01/22 08:00 Transfer Ordered Transfer Location: [facility] laci Reason: Higher level of care laci Condition: Fair laci Problem: new laci Symptoms: have improved laci Accepting Physician: to med/gi(01/01/22 13:30) aa5 Diagnosis - GI Bleed/ Gastrointestinal hemorrhage, unspecified laci - Anemia, unspecified laci - Syncope Near laci - Acute gastritis laci - Acute gastritis with bleeding laci - Hypomagnesemia laci Forms: - Medication Reconciliation Form laci - SBAR form laci Signatures: Dispatcher [employer] EDMS Fritz De La Rosa MD MD cha Calderon, Audri, RN RN aa5 Kala Gunderson RN ss Corrections: (The following items were deleted from the chart) 08:51 08:00 to med/gi laci aguero 13:30 08:51 to med/gi laci higgins
--- NOTE | 2022-01-01 08:00 | ER ---
Nurse's Notes [facility] Name: Abbe Mcknight Age: 76 yrs Sex: Male : 1945 Arrival Date: 01/01/2022 Time: 07:35 Bed 7 Private MD: Diagnosis: GI Bleed/ Gastrointestinal hemorrhage, unspecified;Anemia, unspecified;Syncope Near;Acute gastritis;Acute gastritis with bleeding;Hypomagnesemia Presentation: 01/01 07:35 Chief complaint: EMS states: pt got out of bed to go to the restroom around 0300 and aa5 felt dizzy and lightheaded, went back to bed and when he woke up again he was still feeling dizzy and lightheaded. Pt denies fall, states he used his walker and assisted himself to the ground without falling. EMS reports positive orthostatics and was given 300 cc NS bolus en route. 07:35 Coronavirus screen: At this time, the client does not indicate any symptoms associated aa5 with coronavirus-19. Ebola Screen: Patient denies travel to an Ebola-affected area in the 21 days before illness onset. Initial Sepsis Screen: Does the patient meet any 2 criteria? HR > 90 bpm. Does the patient have a suspected source of infection? No. Patient's initial sepsis screen is negative. Risk Assessment: Do you want to hurt yourself or someone else? Patient reports no desire to harm self or others. Onset of symptoms was January 01, 2022. 07:35 Acuity: JORGE 3 aa5 07:35 Method Of Arrival: EMS: [facility] aa5 Historical: - Allergies: 07:35 No Known Allergies; aa5 - Home Meds: 07:35 benazepril 40 mg oral tab 1 tab once daily [Active]; atenolol 25 mg Oral tab 1 tab once aa5 daily [Active]; atorvastatin 40 mg oral tab 1 tab once daily [Active]; clonidine HCl 0.1 mg Oral tab 2 times per day [Active]; allopurinol 300 mg Oral tab 1 tab once daily [Active]; - PMHx: 07:35 Hyperlipidemia; Hypertension; aa5 - Family history:: not pertinent. Screenin:00 Abuse screen: Denies threats or abuse. Nutritional screening: No deficits noted. aa5 Tuberculosis screening: No symptoms or risk factors identified. Fall Risk Fall in past 12 months (25 points). No secondary diagnosis (0 pts). IV access (20 points). Ambulatory Aid- None/Bed Rest/Nurse Assist (0 pts). Gait- Normal/Bed Rest/Wheelchair (0 pts) Mental Status- Oriented to own ability (0 pts). Total Thomas Fall Scale indicates High Risk Score (45 or more points). Fall prevention measures have been instituted. Side Rails Up X 2 Placed Close to Nursing Station. Assessment: 07:35 Pain: Denies pain. Neuro: Level of Consciousness is awake, alert, obeys commands, aa5 Oriented to person, place, time, situation, Appropriate for age Library Circulation Assistant are equal bilaterally Moves all extremities. Speech is normal, Facial symmetry appears normal, Pupils are PERRLA, Reports feeling dizzy and lightheaded . Cardiovascular: Heart tones S1 S2 present Edema is absent. Rhythm is sinus tachycardia with unifocal PVCs. Respiratory: Airway is patent Respiratory effort is even, unlabored, Respiratory pattern is regular, symmetrical, Breath sounds are clear bilaterally. GI: Abdomen is round non-distended, Bowel sounds present X 4 quads. Abd is soft and non tender X 4 quads. Patient currently denies bloody stool, diarrhea, nausea, vomiting. : No signs and/or symptoms were reported regarding the genitourinary system. EENT: No signs and/or symptoms were reported regarding the EENT system. Derm: Skin is dry, Skin is pale, Skin temperature is warm. Musculoskeletal: Range of motion: intact in all extremities. 07:35 General: Appears comfortable, Behavior is calm, cooperative. aa5 08:30 Neuro: Level of Consciousness is awake, alert, obeys commands, Oriented to person, aa5 place, time, situation. Respiratory: Airway is patent Respiratory effort is even, unlabored, Respiratory pattern is regular, symmetrical. Derm: Skin is dry, Skin is pale, Skin temperature is warm. 08:30 Reassessment: Pt's sister at bedside . aa5 09:32 Reassessment: Pt sitting up in bed, states no complaints at this time, call lara aa5 remains within reach. . Neuro: Level of Consciousness is awake, alert, obeys commands, Oriented to person, place, time, situation. Respiratory: Airway is patent Respiratory effort is even, unlabored, Respiratory pattern is regular, symmetrical. Derm: Skin is dry, Skin is pale, Skin temperature is warm. 10:27 Reassessment: assisted patient to bedside commode to have BM. Large BM noted with dark, ss moderate sized blood clot on top. Pt now back in bed on monitors. 10:38 Neuro: Level of Consciousness is awake, alert, obeys commands, Oriented to person, aa5 place, time, situation. Cardiovascular: Heart tones S1 S2 present Rhythm is sinus rhythm. Respiratory: Airway is patent Respiratory effort is even, unlabored, Respiratory pattern is regular, symmetrical, Breath sounds are clear bilaterally. Derm: Skin is dry, Skin is pale, Skin temperature is warm. 10:38 Reassessment: Tylenol and Benadryl administered per Blood transfusion orders (see paper aa5 orders). 11:07 Reassessment: RBC unit started at 50 cc/hr at 1052, currently infusing at 125 cc/hr, no aa5 adverse reactions noted or reported, lungs CTA. See transfusion record for further documentation. . 11:22 Reassessment: Pt resting in bed with eyes closed, easy to awaken to verbal stimuli, aa5 denies any complaints. Respirations are relaxed, skin is pale/warm/dry. . 12:32 Reassessment: Pt resting in bed with eyes closed, respirations even and unlabored, skin aa5 is pale/warm/dry. . 13:09 Reassessment: RBC unit complete, no adverse reactions noted or reported. TV:273mls (see aa5 blood transfusion record). 13:09 Neuro: Level of Consciousness is awake, alert, obeys commands, Oriented to person, aa5 place, time, situation. Cardiovascular: Rhythm is sinus rhythm. Respiratory: Airway is patent Respiratory effort is even, unlabored, Respiratory pattern is regular, symmetrical. Derm: Skin is dry, Skin is pale, Skin temperature is warm. Vital Signs: 07:35 BP 141 / 87; Pulse 101; Resp 16 S; Temp 98.7(O); Pulse Ox 100% on R/A; Pain 0/10; aa5 08:48 BP 122 / 69; Pulse 103; Resp 18 S; Pulse Ox 100% on R/A; aa5 10:38 BP 119 / 76; Pulse 85; Resp 18 S; Temp 97.9(TE); Pulse Ox 100% on R/A; aa5 11:07 BP 120 / 59; Pulse 77; Resp 19 S; Temp 97.6(TE); Pulse Ox 100% on R/A; aa5 11:22 BP 133 / 63; Pulse 73; Resp 16; Temp 97.6(TE); Pulse Ox 100% on R/A; aa5 11:52 BP 142 / 72; Pulse 75; Resp 18 S; Temp 98.0(TE); Pulse Ox 100% on R/A; aa5 12:32 BP 117 / 67; Pulse 72; Resp 16 S; Temp 98.4(TE); Pulse Ox 100% on R/A; aa5 13:09 BP 133 / 63; Pulse 75; Resp 16; Temp 98.2(TE); Pulse Ox 100% on R/A; aa5 ED Course: 07:35 Patient arrived in ED. ss 07:35 Arm band placed on. aa5 07:35 Patient has correct armband on for positive identification. Placed in gown. Bed in low aa5 position. Call light in reach. Side rails up X2. Client placed on continuous cardiac and pulse oximetry monitoring. NIBP monitoring applied. 07:43 Tanisha Vazquez, RN is Primary Nurse. aa5 07:47 Triage completed. aa5 07:50 Fritz De La Rosa MD is Attending Physician. laci 08:15 Initial lab(s) drawn, by me, sent to lab. Inserted saline lock: 20 gauge in right aa5 forearm, using aseptic technique. Blood collected. 08:15 Maintain EMS IV. Site clean \T\ dry. Gauge \T\ site: 18G L AC. aa 5 08:26 CT Abd/Pelvis - Without Contrast In Process Unspecified. EDMS 08:34 XRAY Chest (1 view) In Process Unspecified. EDMS 08:41 initiated transfer to [facility], no beds at [facility]. Rosalind with transfer center will contact [facility]. 09:30 Inserted saline lock: 18 gauge in right antecubital area, using aseptic technique. aa5 09:50 pt accepted in transfer to [facility] by dr Dalal, admin approval give by souleymane Denny RN. 13:30 No provider procedures requiring assistance completed. Patient transferred, IV remains aa5 in place. Administered Medications: 08:50 Drug: ProTONIX (pantoprazole) 80 mg Route: IVP; Site: right forearm; aa5 08:55 Follow up: Response: No adverse reaction aa5 08:50 Drug: ProTONIX (pantoprazole) 8 mg/hr Route: IV; Rate: 25 ml/hr; Site: left antecubital;aa5 08:50 Drug: NS 0.9% 500 ml Route: IV; Rate: bolus; Site: right forearm; aa5 09:23 Follow up: IV Status: Completed infusion; IV Intake: 500ml aa5 08:50 Drug: NS 0.9% 1000 ml Route: IV; Rate: 125 ml/hr; Site: right forearm; aa5 08:52 Drug: Flagyl (metroNIDAZOLE) 500 mg Volume: 100 ml; Route: IVPB; Rate: 200 ml/hr; aa5 Infused Over: 30 mins; Site: right forearm; 09:23 Follow up: Response: No adverse reaction; IV Status: Completed infusion aa5 09:25 Drug: Cipro (ciprofloxacin) 400 mg Volume: 200 ml; Route: IVPB; Infused Over: 60 mins; aa5 Site: right forearm; 10:26 Follow up: IV Status: Completed infusion; IV Intake: 200ml ss 09:25 Drug: NS 0.9% 500 ml Route: IV; Rate: bolus; Site: right forearm; aa5 10:26 Follow up: IV Status: Completed infusion; IV Intake: 500ml ss 09:32 Drug: Magnesium Sulfate 1 grams Route: IVPB; Infused Over: 1 hrs; Site: right aa5 antecubital; 10:30 Follow up: IV Status: Completed infusion ss 10:38 Drug: Tylenol 650 mg Route: PO; aa5 10:38 Drug: Benadryl (diphenhydrAMINE) 12.5 mg Route: IVP; Site: right antecubital; aa5 Medication: 13:30 VIS not applicable for this client. aa5 Intake: 09:23 IV: 500ml; Total: 500ml. aa5 10:26 IV: 500ml; Total: 1000ml. ss 10:26 IV: 200ml; Total: 1200ml. ss Outcome: 08:00 ER care complete, transfer ordered by [facility] 13:15 Transferred by ground EMS Transfer form completed. X-rays sent w/ patient. Note: to aa5 [place], [place], report given to [facility]. Report was given to Franco (Nurse) at [facility]. 13:15 Condition: stable 13:15 Instructed on the need for transfer, Demonstrated understanding of instructions. 13:30 Patient left the ED. aa5 Signatures: Dispatcher [employer] EDMS Jeniffer Abrams Corey, MD MD cha Calderon, Audri RN RN aa5 Kala Gunderson RN RN ss Corrections: (The following items were deleted from the chart) 09:14 07:35 General: Appears comfortable, Behavior is calm, cooperative, aa5 aa5 11:40 11:21 BP 120 / 59; Pulse 82bpm; Resp 17bpm; Pulse Ox 100% RA; Pain 0/10; ss aa5 11:50 07:35 Respiratory: Airway is patent Respiratory effort is even, unlabored, Respiratory aa5 pattern is regular, symmetrical, aa5 13:39 13:09 Reassessment: RBC unit complete, no adverse reactions noted or reported. . aa5 aa5 13:41 13:15 Transferred by ground EMS Transfer form completed. X-rays sent w/ patient. Note: aa5 to [place], [place], report given to [facility]. aa5
[2022-01-01 08:28] LABS: Absolute Lymphocytes (CBC) 1.2 K/uL (0.7-4.9); Hematocrit 23.9 % (39.6-49.0); MPV 6.4 fL (7.6-11.3); RBC Red Blood Cell Count 3.17 M/uL (4.33-5.43)
[2022-01-01 08:30] LABS: Protime INR 1.2
[2022-01-01] MEDS ORDERED: PANTOPRAZOLE 40 MG INJ ONE (08:38)
[2022-01-01] MEDS ORDERED: NA CHLORIDE 0.9% 500 ML ONE ×2 (08:38→09:10)
[2022-01-01] MEDS ORDERED: NA CHLORIDE 0.9% 1,000 ML ONE (08:39)
[2022-01-01] MEDS ORDERED: CIPROFLOXACIN 400mg IV 400 MG/200 ML BAG IV ONE (08:39)
[2022-01-01] MEDS ORDERED: METRONIDAZOLE 500mg IVPB 500 MG/100 ML BAG IV ONE (08:39)
--- NOTE | 2022-01-01 08:43 | RAD REPORT ---
EXAM DESCRIPTION: CTAbdomen Pelvis Wo Contrast - 01/01/2022 8:26 am CLINICAL HISTORY: GI bleed COMPARISON: No comparisons TECHNIQUE: CT of the abdomen and pelvis was performed without contrast. All CT scans are performed using dose optimization technique as appropriate and may include automated exposure control or mA/KV adjustment according to patient size. FINDINGS: Lower chest: Multi-vessel coronary artery disease. Liver: No acute abnormality or suspicious lesions. Biliary: No biliary ductal dilatation. Stomach: Mildly thickened gastric wall which is low in attenuation possibly representing edema. Duodenum: No significant focal abnormality. Pancreas: No significant abnormality. Spleen: No significant abnormality. Adrenal: No suspicious lesions. Kidney/ureter: No hydronephrosis. No renal calculi. Retroperitoneum: No retroperitoneal adenopathy. Vascular: No aneurysm. Bowel: The appendix is dilated measuring 9 millimeters. No significant periappendiceal stranding is s een.. Peritoneum: No ascites or free air. Small fat containing umbilical hernias. Bladder: Grossly unremarkable. Reproductive: No adnexal masses. Bones: No acute fracture. Advanced multilevel degenerative disc disease in the spine. Other: n/a IMPRESSION: 1. Dilated appendix without periappendiceal stranding. Early or mild appendicitis not fa vored but difficult to entirely exclude. 2. Mild diffuse low attenuation of the gastric wall and mild thickening could reflect gastritis. Endo scopy could better evaluate.
[2022-01-01] MEDS ORDERED: PANTOPRAZOLE INJ 80 MG in NA CHLORIDE 0.9% 250 ML IV ONE (08:45)
[2022-01-01 08:46] LABS: ALT/SGPT < 10 U/L (12-78); AST/SGOT 6 U/L (15-37); Alkaline Phosphatase 66 U/L (45-117); BUN Blood Urea Nitrogen 21 mg/dL (7-18); Bicarbonate 24 mmol/L (21-32); Bilirubin Direct 0.1 mg/dL (0-0.2); Bilirubin Total 0.4 mg/dL (0.2-1.0); Glomerular Filtration Rate 95 ml/min (=/>90); Glucose Level 107 mg/dL (74-106); Lipase 58 U/L (73-393); Magnesium 1.7 mg/dL (1.8-2.4); NT PRO-BNP 1140 pg/mL (<450); Potassium 4.6 mmol/L (3.5-5.1); Protein, Total 5.4 g/dL (6.4-8.2); Sodium Level 135 mmol/L (136-145); Troponin High Sensitivity 10.1 pg/mL (<58.9)
--- NOTE | 2022-01-01 09:03 | RAD REPORT ---
EXAM DESCRIPTION: RAD - Chest Single View - 01/01/2022 8:32 am CLINICAL HISTORY: COUGH COMPARISON: Chest Single View dated 07/19/2020 FINDINGS: Lines: None. Lungs: No evidence of edema or pneumonia. Pleural: No significant pleural effusions or pneumothorax. Cardiac: The heart size is within normal limits. Bones: No acute fractures. Other: IMPRESSION: No acute cardiopulmonary disease.
[2022-01-01] MEDS ORDERED: MAGNESIUM SULFATE 1 gm IVPB 1 GM/100 ML BAG IV ONE (09:10)
[2022-01-01] MEDS ORDERED: ACETAMINOPHEN 325 MG TABLET ONE (10:40)
[2022-01-01] MEDS ORDERED: DIPHENHYDRAMINE 50 MG/ML VIAL ONE (10:40)
[2022-01-01] MEDS ORDERED: NA CHLORIDE 0.9% 250 ML ONE (10:46)
[2022-01-01 13:41] VITALS: O2SAT 100
[2022-01-01 13:52] VITALS: BP 117/67; TEMP 98.4
== END 2022-01-01 13:30 | disposition short-term general hospital (02) ==
LOC: ER 07:23
PROC: 30233N1 Transfusion of Nonautologous Red Blood Cells into Peripheral Vein, Percutaneous Approach (ICD-10-PCS; principal; 2022-01-01)
DX: D64.9 Anemia, unspecified (principal); K29.01 Acute gastritis with bleeding; E83.42 Hypomagnesemia; R55 Syncope and collapse; I10 Essential (primary) hypertension; E78.5 Hyperlipidemia, unspecified; Z20.822 Contact with and (suspected) exposure to COVID-19
CPT/HCPCS: 85025; 80048; 36415; 86900; 83735; 86850; 85610; 86901; 80076; 83605 ×2; 82272; 84484; 83690; 83880; 74176; 71045; 36430; U0003; J1200; C9113 ×2; J3475; P9016; J7050 ×2; J7040 ×2; J7030; J3490; J0744; 93005

== ENCOUNTER 2023-10-06 16:54 | Emergency (ER) | payer OTHER, MEDICARE ==
[2023-10-06 18:29] LABS: Absolute Lymphocytes (CBC) 1.4 K/uL (0.7-4.9); Absolute Monocytes 0.6 K/uL (0.1-1.3); Absolute Neutrophil 4.4 K/uL (1.8-8.0); Basophils % 0.4 % (0-1.3); Eosinophils % 0.1 % (0-4.4); Hematocrit 36.4 % (39.6-49.0); Hemoglobin 12.4 g/dL (13.6-17.9); Lymphocytes % 21.2 % (15.3-44.8); MCH 30.1 pg (27.0-35.0); MCHC 34.1 g/dL (32.0-36.0); MCV 88.1 fL (80-100); MPV 6.6 fL (7.6-11.3); Monocytes % 8.9 % (3.3-12.3); Neutrophils % 69.4 % (41.7-73.7); Nucleated Red Blood Cells % 0.1 % (0-0); Platelets 147 thou/uL (152-406); RBC Red Blood Cell Count 4.13 M/uL (4.33-5.43); Red Cell Distribution Width 16.6 % (12.1-15.2)
--- NOTE | 2023-10-06 18:35 | RAD REPORT ---
EXAM DESCRIPTION: RAD - Chest Single View - 10/06/2023 6:23 pm CLINICAL HISTORY: COUGH Chest pain. COMPARISON: Chest Single View dated 01/01/2022; Chest Single View dated 07/19/2020 FINDINGS: Portable technique limits examination quality. The lungs are grossly clear. The heart is normal in size. No displaced fractures. IMPRESSION: No acute intrathoracic process suspected.
[2023-10-06 18:38] LABS: PT Prothrombin Time 11.9 SECONDS (9.5-12.5); PTT, Activated Partial Thromb 44.6 SECONDS (24.3-36.9); Protime INR 1.08
[2023-10-06 18:41] LABS: Albumin 3.1 g/dL (3.4-5.0); Albumin/Globulin Ratio 0.9 (1.1-1.8); Anion Gap 8.7 mEq/L (5.0-15.0); Bilirubin Total 0.5 mg/dL (0.2-1.0); Globulin 3.5 g/dL (2.3-3.5); Potassium 3.7 mEq/L (3.5-5.1); Protein, Total 6.6 g/dL (6.4-8.2)
[2023-10-06] MEDS ORDERED: NA CHLORIDE 0.9% 1,000 ML ONE (19:16)
[2023-10-06 19:49] LABS: INFLUENZA A NAA NEGATIVE (NEGATIVE); RESPIRATORY SYNCYTIAL VIR NAA NEGATIVE (NEGATIVE); SARS-COV-2 RT PCR NEGATIVE (NEGATIVE)
--- NOTE | 2023-10-06 19:56 | ER ---
Nurse's Notes [facility] Name: Abbe Mcknight Age: 78 yrs Sex: Male : 1945 Arrival Date: 10/06/2023 Time: 16:54 Bed 14 Private MD: Diagnosis: Fever, unspecified;Acute upper respiratory infection, unspecified Presentation: 10/05 17:11 Chief complaint: EMS states: COUGH, FEVER X 2 DAYS WITH WHEEZES. 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 TEMP WAS 102. Coronavirus screen: Vaccine status: Patient reports receiving the 2nd dose of the covid vaccine. Client denies travel out of the [place] in the last 14 days. At this time, the client does not indicate any symptoms associated with coronavirus-19. Ebola Screen: Patient negative for fever greater than or equal to 101.5 degrees Fahrenheit, and additional compatible Ebola Virus Disease symptoms Patient denies exposure to infectious person. Patient denies travel to an Ebola-affected area in the 21 days before illness onset. No symptoms or risks identified at this time. Initial Sepsis Screen: Does the patient meet any 2 criteria? No. Patient's initial sepsis screen is negative. Does the patient have a suspected source of infection? No. Patient's initial sepsis screen is negative. Risk Assessment: Do you want to hurt yourself or someone else? Patient reports no desire to harm self or others. Onset of symptoms was October 06, 2023. 17:11 Method Of Arrival: EMS: [facility] db 17:11 Acuity: JORGE 3 db Triage Assessment: 17:26 General: Appears in no apparent distress. comfortable, Behavior is calm, cooperative. db Pain: Denies pain. Neuro: Level of Consciousness is awake, alert, obeys commands, Oriented to person, place, time, situation. Respiratory: Reports cough that is Airway is patent Respiratory effort is even, unlabored, Respiratory pattern is regular, symmetrical, Breath sounds with wheezes bilaterally. Historical: - Allergies: 17:26 No Known Allergies; db - PMHx: 17:26 age-related cognitive decline; Gastroesophageal reflux disease; DYSPHAGIA; db Hyperlipidemia; Gout; Hypertension; - Immunization history:: Adult Immunizations unknown, Client reports receiving the 2nd dose of the Covid vaccine. - Infectious Disease History:: Denies. - Social history:: Smoking status: Patient denies any tobacco usage or history of. Screenin:30 [facility] ED Fall Risk Assessment (Adult) History of falling in the last 3 months, db including since admission No falls in past 3 months (0 pts) Confusion or Disorientation No (0 pts) Intoxicated or Sedated No (0 pts) Impaired Gait Yes (1 pt) Mobility Assist Device Used Yes (1 pt) Altered Elimination No (0 pt) Score/Fall Risk Level 0 - 2 = Low Risk Oriented to surroundings, Maintained a safe environment. Abuse screen: Denies threats or abuse. Denies injuries from another. Nutritional screening: No deficits noted. 19:32 Tuberculosis screening: No symptoms or risk factors identified. db Assessment: 17:28 Reassessment: SEE TRIAGE FOR INITIAL ASSESSMENT. db 18:30 Reassessment: Patient appears in no apparent distress at this time. No changes from db previously documented assessment. Patient and/or family updated on plan of care and expected duration. Pain level reassessed. Patient is alert, oriented x 3, equal unlabored respirations, skin warm/dry/pink. General: Appears in no apparent distress. comfortable, Behavior is calm, cooperative. Neuro: Level of Consciousness is awake, alert, obeys commands, Oriented to person, place, time, situation. 19:15 Reassessment: Patient is alert, oriented x 3, equal unlabored respirations, skin jj7 warm/dry/pink. ASSUMED CARE OF PT. PT SITTING UP IN BED. NO DISTRESS NOTED VS. CALL WONG IN REACH. FAMILY AT BEDSIDE. 20:01 Reassessment: CILIA WITH [facility] CALLED AND INFORMED THAT PT IS jj7 DISCHARGED AND THEY STATE THEY WILL ARRANGE FOR TRANSPORT WITH [facility] AND WILL CALL BACK WITH AN UPDATED ETA. Vital Signs: 17:11 BP 125 / 67; Pulse 86; Resp 17; Temp 98.3; Pulse Ox 97% ; Weight 78.93 kg; Height 6 ft. db 0 in. ; 17:30 BP 116 / 102; Pulse 87; Resp 18; Pulse Ox 97% on R/A; db 18:00 BP 90 / 67; Pulse 82; Resp 18; Pulse Ox 97% on R/A; db 19:00 BP 105 / 62; Pulse 75; Resp 16; Pulse Ox 97% on R/A; db 19:15 BP 118 / 66; Pulse 74; Resp 16; Pulse Ox 96% ; jj7 20:20 BP 121 / 67; Pulse 76; Resp 16; Temp 98.3; Pulse Ox 98% ; Pain 0/10; jj7 17:11 Body Mass Index 23.60 (78.93 kg, 182.88 cm) db 20:20 Pain Scale: Adult jj7 Vitals: 19:00 Cardiac Rhythm Assessment Regular. db ED Course: 17:15 Patient arrived in ED. db 17:16 Mitch Carlisle MD is Attending Physician. rt 17:25 Sruthi Wilson PA-C is PHCP. sb4 17:26 Triage completed. db 17:26 Arm band placed on Patient placed in an exam room. db 17:50 First set of blood cultures drawn by me. db 18:02 Armida Barber, RN is Primary Nurse. db 18:20 Initial lab(s) drawn, by me, sent to lab. Second set of blood cultures drawn by me, EKG db done. Inserted saline lock: 20 gauge in right antecubital area, using aseptic technique. Blood collected. 18:25 Chest Single View XRAY In Process Unspecified. EDMS 18:30 Patient has correct armband on for positive identification. Placed in gown. Bed in low db position. Call light in reach. Side rails up X 1. Provided Education on: LABS. Client placed on continuous cardiac and pulse oximetry monitoring. NIBP monitoring applied. media monitor on. Pulse ox on. NIBP on. Warm blanket given. 19:05 Report given to db 19:39 Richard Tenorio, RN is Primary Nurse. jj7 20:11 SPOKE WITH ELSIE KAY FROM [place] SHE INFORMED SC THAT [facility] SHOULD ARRIVE [facility] AROUND 2029. 20:21 No provider procedures requiring assistance completed. IV discontinued, intact, jj7 bleeding controlled, No redness/swelling at site. Pressure dressing applied. Administered Medications: 19:15 Drug: NS 0.9% IV 1000 ml IV at 1 bolus Per protocol; 1000 mL bolus Route: IV; Rate: 1 db bolus; Site: right antecubital; 20:30 Follow up: IV Status: Completed infusion jj7 Medication: 20:26 VIS not applicable for this client. jj7 Outcome: 19:55 Discharge ordered by . sb4 20:21 Discharged to half-way. Report called to CILIA jj7 20:21 Condition: improved 20:32 Demonstrated understanding of instructions, Prescriptions given X 2, jj7 20:33 Discharged to half-way. [facility] AT BEDSIDE TO TRANSPORT PT BACK TO [facility] jj7 20:34 Patient left the ED. jj7 Signatures: Dispatcher [employer] Richard Willoughby RN RN jj7 Armida Barber RN RN db Sruthi Wilson, PA-C PA-C sb4 Mitch Carlisle MD MD rt Yanna Baez 6 Corrections: (The following items were deleted from the chart) 19:33 19:32 [facility] ED Fall Risk Assessment (Adult) History of falling in the last 3 months, db including since admission No falls in past 3 months (0 pts) Confusion or Disorientation No (0 pts) Intoxicated or Sedated No (0 pts) Impaired Gait Yes (1 pt) Mobility Assist Device Used Yes (1 pt) Altered Elimination No (0 pt) Score/Fall Risk Level 0 - 2 = Low Risk Oriented to surroundings, Maintained a safe environment, db 19:33 19:32 Abuse screen: Denies threats or abuse. Denies injuries from another. db db 19:33 19:32 Nutritional screening: No deficits noted. db db
--- NOTE | 2023-10-06 19:56 | EDPHYS ---
Physician Documentation [facility] Name: Abbe Mcknight Age: 78 yrs Sex: Male : 1945 Arrival Date: 10/06/2023 Time: 16:54 Bed 14 Private MD: ED Physician Mitch Carlisle HPI: 10/05 17:32 This 78 yrs old Male presents to ER via EMS with complaints of Cough, Fever. sb4 17:32 patient was sent from assisted living facility with concerns of fever and cough. sb4 patient states he is feeling fine. several residents have the same symptoms. he was given tylenol [employer]. he denies any chest pain, shortness of breath, nausea, vomiting, diarrhea. denies any chronic lung disease. Historical: - Allergies: 17:26 No Known Allergies; db - PMHx: 17:26 age-related cognitive decline; Gastroesophageal reflux disease; DYSPHAGIA; db Hyperlipidemia; Gout; Hypertension; - Immunization history:: Adult Immunizations unknown, Client reports receiving the 2nd dose of the Covid vaccine. - Infectious Disease History:: Denies. - Social history:: Smoking status: Patient denies any tobacco usage or history of. ROS: 17:32 Cardiovascular: Negative for chest pain, palpitations, and edema, sb4 17:32 Constitutional: Positive for fever, 17:32 Respiratory: Positive for cough, "sounds productive", 17:32 All other systems are negative, Exam: 17:32 Constitutional: This is a well developed, well nourished patient who is awake, alert, sb4 and in no acute distress. Head/Face: Normocephalic, atraumatic. Eyes: Extra-ocular motions intact. Periorbital areas with no swelling, redness, or edema. ENT: Mucous membranes moist. Cardiovascular: Regular rate and rhythm with a normal S1 and S2. Respiratory: Lungs have equal breath sounds bilaterally, clear to auscultation and percussion. No rales, rhonchi or wheezes noted. No increased work of breathing, no retractions or nasal flaring. Abdomen/GI: Soft, non-tender, no distension. Skin: Warm, dry with normal turgor. Normal color with no rashes, no lesions, and no evidence of cellulitis. MS/ Extremity: Pulses equal, no cyanosis. Neurovascular intact. Full, normal range of motion. Neuro: Awake and alert, GCS 15, oriented to person, place, time, and situation. Motor strength 5/5 in all extremities. Sensory grossly intact. Vital Signs: 17:11 BP 125 / 67; Pulse 86; Resp 17; Temp 98.3; Pulse Ox 97% ; Weight 78.93 kg; Height 6 ft. db 0 in. ; 17:30 BP 116 / 102; Pulse 87; Resp 18; Pulse Ox 97% on R/A; db 18:00 BP 90 / 67; Pulse 82; Resp 18; Pulse Ox 97% on R/A; db 19:00 BP 105 / 62; Pulse 75; Resp 16; Pulse Ox 97% on R/A; db 19:15 BP 118 / 66; Pulse 74; Resp 16; Pulse Ox 96% ; jj7 20:20 BP 121 / 67; Pulse 76; Resp 16; Temp 98.3; Pulse Ox 98% ; Pain 0/10; jj7 17:11 Body Mass Index 23.60 (78.93 kg, 182.88 cm) db 20:20 Pain Scale: Adult jj7 MDM: 17:25 Patient medically screened. sb4 17:32 Differential Diagnosis: Bronchitis Influenza Upper Respiratory Infection Viral Syndrome sb4 Pneumonia. 18:09 Independent interpretation of the following test(s) in the Emergency Department X-Ray: sb4 My interpretation is my interpretation of the chest xray images are no consolidations suggestive of PNA. 19:23 Awaiting: labs results, combo swab just now sent. sb4 19:54 Data reviewed: vital signs, nurses notes, detention records, lab test result(s), 4 EKG, radiologic studies, and as a result, I will discharge patient. Consideration of Admission/Observation Escalation of care including admission/observation considered. Counseling: I had a detailed discussion with the patient and/or guardian regarding the historical points, exam findings, and any diagnostic results supporting the discharge/admit diagnosis, lab results, radiology results, to return to the emergency department if symptoms worsen or persist or if there are any questions or concerns that arise at home. 10/05 17:29 Order name: Blood Culture Adult (2) 4 10/05 17:29 Order name: CBC with Diff; Complete Time: 18:34 sb4 10/05 17:29 Order name: CMP; Complete Time: 18:43 sb4 10/05 17:29 Order name: Lactate w/ 2H reflex if indic.; Complete Time: 18:48 sb4 10/05 17:29 Order name: Protime (+inr); Complete Time: 18:43 sb4 10/05 17:29 Order name: Ptt, Activated; Complete Time: 18:43 sb4 10/05 17:29 Order name: COVID-19/FLU A+B/RSV; Complete Time: 19:51 sb4 10/05 17:29 Order name: Chest Single View XRAY; Complete Time: 18:43 sb4 10/05 17:29 Order name: EKG; Complete Time: 17:29 sb4 10/05 17:29 Order name: Accucheck; Complete Time: 18:38 sb4 10/05 17:29 Order name: Cardiac monitoring; Complete Time: 18:38 sb4 10/05 17:29 Order name: EKG - Nurse/Tech; Complete Time: 18:38 sb4 10/05 17:29 Order name: IV Saline Lock - Large Bore; Complete Time: 18:38 sb4 10/05 17:29 Order name: Labs collected and sent; Complete Time: 18:38 sb4 10/05 17:29 Order name: O2 Per Protocol; Complete Time: 18:38 sb4 10/05 17:29 Order name: O2 Sat Monitoring; Complete Time: 18:38 sb4 10/05 17:29 Order name: Vital Signs; Complete Time: 18:38 sb4 EC:31 Rate is 75 beats/min. Rhythm is regular, Sinus Rhythm with 1st degree heart block. OH sb4 interval is prolonged at 246 msec. QRS interval is normal at 100 msec. QT interval is normal at 392 msec. No Q waves. T waves are Normal. No ST changes noted. Clinical impression: No evidence of ischemia. Interpreted by me. Reviewed by me. Administered Medications: 19:15 Drug: NS 0.9% IV 1000 ml IV at 1 bolus Per protocol; 1000 mL bolus Route: IV; Rate: 1 db bolus; Site: right antecubital; 20:30 Follow up: IV Status: Completed infusion jj7 Disposition Summary: 10/06/23 19:55 Discharge Ordered Notes: Location: Home sb4 Problem: new sb4 Symptoms: are unchanged sb4 Condition: Stable sb4 Diagnosis - Fever, unspecified sb4 - Acute upper respiratory infection, unspecified sb4 Followup: sb4 - With: Emergency Department - When: As needed - Reason: Trouble breathing, Worsening of condition Discharge Instructions: - Discharge Summary Sheet sb4 - Upper Respiratory Infection, Adult, [id number] sb4 Forms: - Thank You Letter sb4 - Patient Portal Instructions sb4 - Leadership Thank You Letter sb4 Prescriptions: - azithromycin 250 mg Oral tablet - take 1 dose pack ORAL route as directed on dose pack For 250 mg dose pack: take sb4 500 mg today (day 1), then 250 mg for 4 days (days 2-5); 1 Pack; Refills: 0, Product Selection Permitted - Prednisone 20 mg Oral Tablet - take 1 tablet ORAL route every 12 hours for 5 days; 10 tablet; Refills: 0, sb4 Product Selection Permitted Signatures: Dispatcher [employer] Armida Greco, RN RN Sruthi Mcgregor PA-C PA-C sb4 Richard Tenorio RN jj7 Corrections: (The following items were deleted from the chart) 17:29 17:29 BLOOD CULTURE*+BA.LAB.BRZ ordered. EDMS EDMS 17:29 17:29 CBC+H.LAB.BRZ ordered. EDTX EDMS 17:29 17:29 COMPREHENSIVE METABOLIC PANEL+C.LAB.BRZ ordered. EDTX EDMS 17:29 17:29 LACTATE+C.LAB.BRZ ordered. EDTX EDMS 17:29 17:29 PROTIME (+INR)+COAG.LAB.BRZ ordered. EDTX EDMS 17:29 17:29 PTT, ACTIVATED+COAG.LAB.BRZ ordered. EDTX EDMS 17:29 17:29 COVID-19/FLU A+B/RSV+MOL.LAB.BRZ ordered. EDMS EDMS 18:32 18:30 Rate is 72 beats/min. Rhythm is regular, Normal Sinus Rhythm. OH interval is sb4 normal at 178 msec. QRS interval is normal at 84 msec. QT interval is normal at 394 msec. No Q waves. T waves are Normal. No ST changes noted. Clinical impression: Normal ECG and No evidence of ischemia. Interpreted by me. Reviewed by me. sb4
[2023-10-06 22:45] VITALS: BP 121/67; TEMP 98.3; O2SAT 98
--- NOTE | 2023-10-08 15:43 | EKG ---
Test Date: 2023-10-06 Test Time: 18:25:55 Research Methodologist: EFRAIN MEASUREMENT RESULTS: Intervals: Rate: 80 CA: 234 QRSD: 98 QT: 402 QTc: 463 [place]: P: 47 CA: 234 QRS: -65 T: 71 INTERPRETIVE STATEMENTS: Sinus rhythm with 1st degree AV block with occasional premature ventricular complexes Left anterior fascicular block Abnormal ECG Compared to ECG 04/08/2022 14:36:15 Incomplete right bundle-branch block no longer present Electronically Signed On 10-08-23 15:40:07 CDT by Jorge L Baeza
== END 2023-10-06 20:34 | disposition home or self-care (01) ==
LOC: ER 16:54
DX: J06.9 Acute upper respiratory infection, unspecified (principal); Z11.52 Encounter for screening for COVID-19
CPT/HCPCS: 93005; 87040 ×2; 85025; 36415; 85610; 83605; 85730; 80053; 0241U; 71045; 96360; 99285; J7030

== ENCOUNTER 2024-09-25 02:37 | Inpatient (IN) | payer OTHER, MEDICARE ==
[2024-09-25] MEDS ORDERED: ONDANSETRON 4 MG/2 ML VIAL ONE (03:33)
[2024-09-25] MEDS ORDERED: NA CHLORIDE 0.9% 1,000 ML ONE (03:34)
[2024-09-25 03:52] LABS: Absolute Lymphocytes (CBC) 0.5 K/uL (0.7-4.9); Absolute Monocytes 0.2 K/uL (0.1-1.3); Absolute Neutrophil 5.9 K/uL (1.8-8.0); Basophils % 0.1 % (0-1.3); Eosinophils % 0.2 % (0-4.4); Hematocrit 46.9 % (39.6-49.0); Lymphocytes % 7.3 % (15.3-44.8); MCH 31.8 pg (27.0-35.0); MCHC 34.1 g/dL (32.0-36.0); MCV 93.3 fL (80-100); MPV 6.8 fL (7.6-11.3); Monocytes % 3.7 % (3.3-12.3); Neutrophils % 88.7 % (41.7-73.7); Nucleated Red Blood Cells % 0.1 % (0-0); Platelets 153 thou/uL (152-406); RBC Red Blood Cell Count 5.03 M/uL (4.33-5.43); Red Cell Distribution Width 15.7 % (12.1-15.2)
[2024-09-25 04:04] LABS: PT Prothrombin Time 11.7 SECONDS (10-13.0); PTT, Activated Partial Thromb 43.5 SECONDS (27.2-37.4); Protime INR 1.03
[2024-09-25 04:12] LABS: Albumin 3.1 g/dL (3.4-5.0); Albumin/Globulin Ratio 0.8 (1.1-1.8); Anion Gap 10.6 mEq/L (5.0-15.0); Bilirubin Total 0.7 mg/dL (0.2-1.0); Globulin 3.9 g/dL (2.3-3.5); Potassium 3.6 mEq/L (3.5-5.1)
[2024-09-25 04:24] LABS: C-Reactive Protein 22.3 mg/L (<3.00); Thyroid Stimulating Hormone 1.08 uIU/mL (0.358-3.740); Troponin High Sensitivity 10.6 pg/mL (<58.9)
[2024-09-25 04:34] LABS: Influenza A Ag Negative; Influenza B Ag Negative; SARS-CoV-2 Antigen Rapid Res Negative (Negative)
[2024-09-25 04:44] LABS: Band Neutrophils 11 % (0-1); Differential Total Cells Count 100; Lymphocytes 7 % (15-42); Monocytes 5 % (0-10); Reactive Lymphocytes 3 %; Segmented Neutrophils 74 % (40-80)
[2024-09-25 04:45] LABS: Blood Morphology Comment NOT SEEN (NOT SEEN); Platelet Estimate ADEQ
[2024-09-25] MEDS ORDERED: ALBUMIN HUMAN 25% 100 ML IV ONE ×2 (05:50→06:32)
[2024-09-25 05:51] LABS: Specific Gravity 1.021 (1.005-1.030); Sqamous Epithelial <5 /HPF (None Seen); Transitional Epithelial <5 /HPF (None Seen); Urine Bacteria <20 /HPF (<20); Urine Bilirubin NEGATIVE (Negative); Urine Blood Trace (Negative); Urine Clarity Clear (Clear); Urine Color Yellow (Yellow); Urine Culture Reflex Order NOT NEEDED; Urine Glucose NEGATIVE (Negative); Urine Granular Casts 0-5 /LPF (None Seen); Urine Ketones 1+ (Negative); Urine Microscopic Reflex YN ORDER UMIC; Urine Mucus 1+ /HPF (None Seen); Urine Nitrite NEGATIVE (Negative); Urine Protein NEGATIVE (Negative); Urine Urobilinogen Normal (Normal); Urine WBC <5 /HPF (<5); Urine pH 5.5 (5.0-7.0)
--- NOTE | 2024-09-25 07:19 | EDPHYS ---
Physician Documentation [facility] Name: Abbe Mcknight Age: 79 yrs Sex: Male : 1945 Arrival Date: 09/25/2024 Time: 02:37 Bed 3 Private MD: ED Physician Asad Morrisno HPI: 09/25 02:46 This 79 yrs old Male presents to ER via Unassigned with complaints of nausea sp4 , vomiting, fever . 06:47 79-year-old male presents from [facility] with complaint of abdominal pain and sp4 vomiting.. 07:02 Patient with past medical history of quadriplegia, history of spinal cord compression, sp4 [facility] patient, protein calorie malnutrition, hyperlipidemia, muscle wasting and atrophy, prolonged immobility, essential hypertension, GERD, gout, dysphagia, ataxia. Patient is DNR.. Medications include acetaminophen, allopurinol, atenolol, atorvastatin, baclofen, Flomax, gabapentin, Imodium, Pepcid.. Historical: - Allergies: 02:53 No Known Allergies; ha1 02:51 No Known Allergies; jj7 - PMHx: 02:53 age-related cognitive decline; DYSPHAGIA; Gastroesophageal reflux disease; Gout; ha1 Hyperlipidemia; Hypertension; 02:51 age-related cognitive decline; DYSPHAGIA; Gastroesophageal reflux disease; Gout; jj7 Hyperlipidemia; Hypertension; - PSHx: 02:51 None; jj7 - Immunization history:: Adult Immunizations unknown. - Infectious Disease History:: Denies. - Social history:: Smoking status: unknown. - Family history:: not pertinent. ROS: 06:47 Constitutional: Negative for fever, chills, and weight loss, positive abdominal pain sp4 positive vomiting 06:47 All other systems are negative, Exam: 06:47 Constitutional: Elderly debilitated male who is nonambulatory. Head/Face: sp4 Normocephalic, atraumatic. Eyes: Pupils equal round and reactive to light, extra-ocular motions intact. Lids and lashes normal. Conjunctiva and sclera are not injected. Cornea within normal limits. Periorbital areas with no swelling, redness, or edema. ENT: Nares patent. No nasal discharge, no septal abnormalities noted. Tympanic membranes are normal and external auditory canals are clear. Oropharynx with no redness, swelling, or masses, exudates, or evidence of obstruction, uvula midline. Mucous membranes moist. Neck: Trachea midline, no thyromegaly or masses palpated, and no cervical lymphadenopathy. Supple, full range of motion without nuchal rigidity, or vertebral point tenderness. Chest/axilla: Normal chest wall appearance and motion. Nontender with no deformity. No lesions are appreciated. Cardiovascular: Regular rate and rhythm with a normal S1 and S2. No gallops, murmurs, or rubs. Normal PMI, no JVD. No pulse deficits. Respiratory: Lungs have equal breath sounds bilaterally, clear to auscultation and percussion. No rales, rhonchi or wheezes noted. No increased work of breathing, no retractions or nasal flaring. Abdomen/GI: Soft, with normal bowel sounds. No distension or tympany. No guarding or rebound. No evidence of tenderness throughout. Back: No spinal tenderness. No costovertebral tenderness. Skin: Warm, dry with normal turgor. Normal color with no rashes, no lesions, and no evidence of cellulitis. MS/ Extremity: Pulses equal, no cyanosis. Neurovascular intact. Full, normal range of motion. Neuro: Awake and alert, GCS 15, oriented to person, place, time, and situation. Cranial nerves II-XII grossly intact. Motor strength 5/5 in all extremities. Sensory grossly intact. Psych: Awake, alert, with orientation to person, place and time. Behavior, mood, and affect are within normal limits 06:47 ECG was reviewed by the Attending Physician. EKG at 0 439 left axis deviation, sinus tachycardia first-degree block Vital Signs: 02:47 BP 130 / 77; Pulse 116; Resp 16; Temp 98.6; Pulse Ox 96% on R/A; Weight 89.36 kg; jj7 Height 6 ft. 0 in. ; 04:00 BP 122 / 64; Pulse 112; Resp 17; Pulse Ox 97% ; jj7 05:00 BP 113 / 68; Pulse 109; Resp 16; Pulse Ox 95% ; jj7 06:00 BP 96 / 64; Pulse 100; Resp 16; Pulse Ox 98% ; jj7 06:57 BP 113 / 62; Pulse 91; Resp 17; Pulse Ox 99% ; jj7 07:15 BP 124 / 69; Pulse 94; Resp 16 S; Pulse Ox 100% on R/A; aa5 07:30 BP 120 / 74; Pulse 97; Resp 18 S; Pulse Ox 98% on R/A; aa5 07:45 BP 129 / 58; Pulse 93; Resp 16 S; Pulse Ox 97% on R/A; aa5 08:15 BP 121 / 67; Pulse 94; Resp 16 S; Pulse Ox 97% on R/A; aa5 02:47 Body Mass Index 26.72 (89.36 kg, 182.88 cm) jj7 [place] Coma Score: 06:47 Eye Response: spontaneous(4). Motor Response: obeys commands(6). Verbal Response: sp4 oriented(5). Total: 15. MDM: 03:01 Medical Screening Exam initiated sp4 07:01 Differential diagnosis: bowel obstruction, Cholelithiasis, diverticulitis, gastritis, sp4 gastroesophageal reflux disease, GI Bleed, Hepatitis. Data reviewed: vital signs, nurses notes, EMS record, lab test result(s), CBC, electrolytes, hepatic panel, EKG, radiologic studies, CT scan. Consideration of Admission/Observation Patient was admitted/placed on observation. Escalation of care including admission/observation considered. ED course: . 07:22 ED course: EXAM: CT CHEST, ABDOMEN AND PELVIS WITHOUT CONTRAST CLINICAL INDICATION: sp4 Male, 79 years old vomiting TECHNIQUE: CT chest, abdomen and pelvis was performed, without IV contrast, as per department protocol. Axial, sagittal and coronal reconstructions were obtained. One or more of the following dose reduction techniques were used: Automated exposure control, adjustment of the mA and/or kV according to the patient size, and/or iterative reconstruction. Unless otherwise specified, incidental findings do not require dedicated imaging follow-up. [id number]. COMPARISON: 01/01/2022 FINDINGS: The lack of intravenous contrast limits the sensitivity of this exam for evaluation of solid visceral organs, vascular structures, and retroperitoneum. Chest: LOWER NECK: Visualized thyroid gland and soft tissues are normal. LUNGS AND AIRWAYS: Dependent atelectasis.Motion artifact limits evaluation for pulmonary nodule detection. Pleural-based calcifications along the lower lungs. PLEURA: No pleural effusion. No pneumothorax. Hemidiaphragms are normally positioned. MEDIASTINUM AND LYMPH NODES: No mediastinal mass or fluid collection. Normal size mediastinal, hilar, and axillary lymph nodes. Fluid present within the esophagus which may be from reflux. Distal esophagus is also mildly thickened. THORACIC AORTA: No thoracic aortic aneurysm. Atherosclerotic changes are present. PULMONARYARTERIES: Caliber is within normal limits. HEART: Normal heart size. Coronary arterial calcifications are present.No significant pericardial effusion. Abdomen/Pelvis UPPER GI: Distended stomach with fluid. LIVER: No significant focal abnormality. GALLBLADDER/BILE DUCTS: No biliary ductal dilatation. PANCREAS: Atrophy but otherwise normal. SPLEEN: Unremarkable. ADRENALS: No adrenal masses. KIDNEYS AND URETERS: No hydronephrosis.No suspicious renal mass.Nonobstructive right nephrolithiasis. ABDOMINAL AORTA AND OTHER VESSELS: Moderate atherosclerotic changes without aortic aneurysm. PERITONEUM: No abnormal free fluid. No free air. LYMPH NODES: No pathologic lymphadenopathy. ABDOMINAL WALL: Unremarkable SMALL BOWEL/COLON: Rectal wall thickening.No bowel obstruction. Nonspecific fluid present within the small bowel and colon which may represent diarrheal disease. Normal appendix. URINARYBLADDER: Underdistended but grossly unremarkable. REPRODUCTIVE ORGANS: No pathologic process. MUSCULOSKELETAL: Multilevel degenerative changes in the spine. No acute fracture. Fusion at L1-L4 which may be developmental. ADDITIONAL FINDINGS: None. IMPRESSION: 1. Question proctitis. No bowel obstruction identified. 2. Esophageal fluid could be from gastroesophageal reflux. 3. Other ancillary findings as noted above. Electronically signed by: Blas Crabtree MD 09/25/2024 07:17 AM C. 09/25 02:53 Order name: Blood Culture Adult (2) 09/25 02:53 Order name: CBC with Diff; Complete Time: 05:49 09/25 02:53 Order name: CMP; Complete Time: 05:49 09/25 02:53 Order name: Lactate w/ 2H reflex if indic.; Complete Time: 05:49 09/25 02:53 Order name: Protime (+inr); Complete Time: 05:49 09/25 02:53 Order name: Ptt, Activated; Complete Time: 05:49 09/25 02:53 Order name: Urinalysis w/ reflexes; Complete Time: 06:07 09/25 02:54 Order name: COVID-19 Ag + Flu A+B Ag; Complete Time: 05:49 09/25 02:55 Order name: Lipase; Complete Time: 05:49 09/25 02:55 Order name: TSH; Complete Time: 05:49 sp4 09/25 02:55 Order name: CRP; Complete Time: 05:49 sp4 09/25 02:55 Order name: Troponin High Sensitivity; Complete Time: 05:49 sp4 09/25 02:55 Order name: BNP; Complete Time: 05:49 sp4 09/25 04:08 Order name: Manual Differential; Complete Time: 05:49 EDMS 09/25 08:24 Order name: Basic Metabolic Panel EDMS 09/25 08:24 Order name: Basic Metabolic Panel EDMS 09/25 08:24 Order name: Basic Metabolic Panel EDMS 09/25 08:24 Order name: Basic Metabolic Panel EDMS 09/25 08:24 Order name: Basic Metabolic Panel EDMS 09/25 08:24 Order name: Basic Metabolic Panel EDMS 09/25 08:24 Order name: Basic Metabolic Panel EDMS 09/25 08:24 Order name: Basic Metabolic Panel EDMS 09/25 08:24 Order name: CBC with Automated Diff EDMS 09/25 08:24 Order name: CBC with Automated Diff EDMS 09/25 08:24 Order name: CBC with Automated Diff EDMS 09/25 08:24 Order name: CBC with Automated Diff EDMS 09/25 08:24 Order name: CBC with Automated Diff EDMS 09/25 08:24 Order name: CBC with Automated Diff EDMS 09/25 08:24 Order name: CBC with Automated Diff EDMS 09/25 08:24 Order name: CBC with Automated Diff EDMS 09/25 08:24 Order name: Magnesium EDMS 09/25 08:24 Order name: Magnesium EDMS 09/25 08:24 Order name: Magnesium EDMS 09/25 08:24 Order name: Magnesium EDMS 09/25 08:24 Order name: Magnesium EDMS 09/25 08:24 Order name: Magnesium EDMS 09/25 08:24 Order name: Magnesium EDMS 09/25 08:24 Order name: Magnesium EDMS 09/25 08:24 Order name: Phosphorus EDMS 09/25 08:24 Order name: Phosphorus EDMS 09/25 08:24 Order name: Phosphorus EDMS 09/25 08:24 Order name: Phosphorus EDMS 09/25 08:24 Order name: Phosphorus EDMS 09/25 08:24 Order name: Phosphorus EDMS 09/25 08:24 Order name: Phosphorus EDMS 09/25 08:24 Order name: Phosphorus EDMS 09/25 08:24 Order name: Troponin High Sensitivity EDPR 09/25 08:24 Order name: Troponin High Sensitivity EDPR 09/25 08:24 Order name: Troponin High Sensitivity [facility] 09/25 08:24 Order name: Urinalysis w/ reflexes EDPR 09/25 02:54 Order name: CT Chest Abdomen Pelvis W/O Contrast sp4 09/25 08:24 Order name: CONS Physician Consult [facility] 09/25 02:53 Order name: Cardiac monitoring; Complete Time: 04:40 sp4 09/25 02:53 Order name: Cath; Complete Time: 05:09 sp4 09/25 02:53 Order name: EKG - Nurse/Tech; Complete Time: 04:40 sp4 09/25 02:53 Order name: IV Saline Lock - Large Bore; Complete Time: 03:27 sp4 09/25 02:53 Order name: Labs collected and sent; Complete Time: 03:27 sp4 09/25 02:53 Order name: O2 Per Protocol; Complete Time: 03:27 sp4 09/25 02:53 Order name: O2 Sat Monitoring; Complete Time: 03:27 sp4 09/25 02:53 Order name: Vital Signs; Complete Time: 03:27 sp4 EC:39 Rate is 108 beats/min. Rhythm is regular, Sinus tachycardia. Left axis deviation noted. sp4 MO interval is prolonged. QRS interval is normal. QT interval is normal. No Q waves. T waves are Normal. No ST changes noted. Clinical impression: No evidence of ischemia. Interpreted by me. Reviewed by me. Administered Medications: 03:41 Drug: Ondansetron IVP 4 mg IVP once; over 2 minutes Route: IVP; Site: right antecubital;ha1 05:58 Follow up: Response: Marked relief of symptoms jj7 03:42 Drug: NS 0.9% IV 1000 ml IV at 1000 ml once; to be given as a bolus over 60 minutes ha1 Route: IV; Rate: 1000 ml; Site: right antecubital; 05:58 Drug: Albumin IVPB 25 grams 100 ml IVPB once; (Note: Albumin 25% concentration) Volume: jj7 100 ml; Route: IVPB; Site: right antecubital; 06:28 Follow up: IV Status: Completed infusion jj7 06:37 Drug: Albumin IVPB 25 grams 100 ml IVPB once; (Note: Albumin 25% concentration) Volume: jj7 100 ml; Route: IVPB; Site: right antecubital; 07:07 Follow up: IV Status: Completed infusion; IV Intake: 100ml aa5 06:56 Drug: NS 0.9% IV 1000 ml IV at 1 bolus Per protocol; to be given as a bolus over 60 jj7 minutes Route: IV; Rate: 1 bolus; Site: right antecubital; 07:56 Follow up: IV Status: Completed infusion; IV Intake: 1000ml aa5 Disposition Summary: 09/25/24 07:18 Hospitalization Ordered Notes: Hospitalization Status: Inpatient Admission sp4 Provider: Rigo Eduardo sp4 Condition: Stable sp4 Problem: new sp4 Symptoms: have improved sp4 Bed/Room Type: Standard sp4 Location: Telemetry/MedSurg (Inpatient)(09/25/24 14:03) sp Room Assignment: 221(09/25/24 14:03) sp Diagnosis - Acute Ileus, Intractable vomiting sp4 Forms: - Medication Reconciliation Form sp4 - SBAR form sp4 - Leadership Thank You Letter sp4 Signatures: Dispatcher [employer] EDMS Lissette Baez Heidy, RN RN ha1 Richard Tenorio RN RN jj7 Asad Morrison MD MD sp4 Tanisha Vazquez RN aa5 Corrections: (The following items were deleted from the chart) 02:54 02:54 BLOOD CULTURE*+BA.LAB.BRZ ordered. EDMS EDMS 02:54 02:54 CBC+H.LAB.BRZ ordered. EDMS EDMS 02:54 02:54 COMPREHENSIVE METABOLIC PANEL+C.LAB.BRZ ordered. EDMS EDMS 02:54 02:54 LACTATE+C.LAB.BRZ ordered. EDMS EDMS 02:54 02:54 PROTIME (+INR)+COAG.LAB.BRZ ordered. EDMS EDMS 02:54 02:54 PTT, ACTIVATED+COAG.LAB.BRZ ordered. EDMS EDMS 02:54 02:54 Urinalysis+U.LAB.BRZ ordered. EDMS EDMS 02:55 02:55 COVID-19 Ag + Flu A+B Ag+I.LAB.BRZ ordered. EDMS EDMS 02:56 02:56 LIPASE+C.LAB.BRZ ordered. EDMS EDMS 02:56 02:56 THYROID STIMULAT HORMONE+C.LAB.BRZ ordered. EDMS EDMS 02:56 02:56 C-REACTIVE PROTEIN+C.LAB.BRZ ordered. EDMS EDMS 02:56 02:56 Troponin High Sensitivity+C.LAB.BRZ ordered. EDMS EDMS 02:56 02:56 PROBNP+C.LAB.BRZ ordered. EDMS EDMS 07:37 02:53 Accucheck ordered. sp4 ss 09:12 07:18 Telemetry/MedSurg (Inpatient) sp4 sp 09:12 07:18 sp4 sp 14:03 09:12 [facility] ER HOLD sp sp 14:03 09:12 ERHOLD- sp sp
--- NOTE | 2024-09-25 07:19 | ER ---
Nurse's Notes [facility] Name: Abbe Mcknight Age: 79 yrs Sex: Male : 1945 Arrival Date: 09/25/2024 Time: 02:37 Bed 3 Private MD: Diagnosis: Acute Ileus, Intractable vomiting Presentation: 09/25 02:47 Chief complaint: EMS states: LONGTERM STATES HE HAD FEVER, NAUSEA AND VOMITING THAT jj7 STARTED TO 9P LAST NIGHT. THEY GAVE HIM TYLENOL. N/V AND FEVER RESOLVED. HAS GENERALIZED ABD PAIN. Coronavirus screen: At this time, the client does not indicate any symptoms associated with coronavirus-19. Ebola Screen: No symptoms or risks identified at this time. Initial Sepsis Screen: Does the patient meet any 2 criteria? HR > 90 bpm. Yes Does the patient have a suspected source of infection? No. Patient's initial sepsis screen is negative. Risk Assessment: Do you want to hurt yourself or someone else? Patient reports no desire to harm self or others. Note GIVEN TYLENOL AT THE ME. Onset of symptoms was September 24, 2024. 02:47 Method Of Arrival: EMS: [facility] j7 02:47 Acuity: JORGE 3 jj7 Triage Assessment: 02:53 General: Appears comfortable, Behavior is calm, cooperative. Pain: Denies pain. Neuro: ha1 Level of Consciousness is awake, alert, obeys commands, Oriented to person, place, time, situation. Cardiovascular: Capillary refill < 3 seconds Patient's skin is warm and dry. Respiratory: Airway is patent Respiratory effort is even, unlabored, Respiratory pattern is regular, symmetrical. Respiratory: Reports RUNNY NOSE, FLU LIKE SYMPTOMS. GI: Reports nausea, vomiting. : No signs and/or symptoms were reported regarding the genitourinary system. Derm: Skin is pink, warm \T\ dry. Musculoskeletal: Circulation, motion, and sensation intact. Range of motion: intact in all extremities. Historical: - Allergies: 02:53 No Known Allergies; ha1 02:51 No Known Allergies; jj7 - PMHx: 02:53 age-related cognitive decline; DYSPHAGIA; Gastroesophageal reflux disease; Gout; ha1 Hyperlipidemia; Hypertension; 02:51 age-related cognitive decline; DYSPHAGIA; Gastroesophageal reflux disease; Gout; jj7 Hyperlipidemia; Hypertension; - PSHx: 02:51 None; jj7 - Immunization history:: Adult Immunizations unknown. - Infectious Disease History:: Denies. - Social history:: Smoking status: unknown. - Family history:: not pertinent. Screenin:44 [facility] ED Fall Risk Assessment (Adult) History of falling in the last 3 months, ha1 including since admission No falls in past 3 months (0 pts) Confusion or Disorientation No (0 pts) Intoxicated or Sedated No (0 pts) Impaired Gait Yes (1 pt) Mobility Assist Device Used Yes (1 pt) Altered Elimination No (0 pt) Score/Fall Risk Level 3 or more points = High Risk Oriented to surroundings, Maintained a safe environment, Educated pt \T\ family on fall prevention, incl call for assistance when getting out of bed, Assessed \T\ reinforced patient's understanding of fall precautions, Hourly rounding (assess needs \T\ fall precautionary measures) done. Abuse screen: Denies threats or abuse. Denies injuries from another. Nutritional screening: No deficits noted. Tuberculosis screening: No symptoms or risk factors identified. Assessment: 02:57 Reassessment: SEE TRIAGE ASSESSMENT. General:. GI: Reports lower abdominal pain, upper jj7 abdominal pain, Patient currently denies nausea, vomiting. 07:07 Reassessment: Patient is alert, oriented x 3, equal unlabored respirations, skin aa5 warm/dry/pink. Awaiting CT scan results, pt aware. . Vital Signs: 02:47 BP 130 / 77; Pulse 116; Resp 16; Temp 98.6; Pulse Ox 96% on R/A; Weight 89.36 kg; jj7 Height 6 ft. 0 in. ; 04:00 BP 122 / 64; Pulse 112; Resp 17; Pulse Ox 97% ; jj7 05:00 BP 113 / 68; Pulse 109; Resp 16; Pulse Ox 95% ; jj7 06:00 BP 96 / 64; Pulse 100; Resp 16; Pulse Ox 98% ; jj7 06:57 BP 113 / 62; Pulse 91; Resp 17; Pulse Ox 99% ; jj7 07:15 BP 124 / 69; Pulse 94; Resp 16 S; Pulse Ox 100% on R/A; aa5 07:30 BP 120 / 74; Pulse 97; Resp 18 S; Pulse Ox 98% on R/A; aa5 07:45 BP 129 / 58; Pulse 93; Resp 16 S; Pulse Ox 97% on R/A; aa5 08:15 BP 121 / 67; Pulse 94; Resp 16 S; Pulse Ox 97% on R/A; aa5 02:47 Body Mass Index 26.72 (89.36 kg, 182.88 cm) jj7 [place] Coma Score: 06:47 Eye Response: spontaneous(4). Motor Response: obeys commands(6). Verbal Response: sp4 oriented(5). Total: 15. ED Course: 02:44 Patient arrived in ED. jj7 02:44 Patient has correct armband on for positive identification. Placed in gown. Bed in low ha1 position. Call light in reach. Side rails up X2. Adult w/ patient. 02:46 Asad Morrison MD is Attending Physician. sp4 02:47 Arm band placed on right wrist. Patient placed in an exam room, on a stretcher. jj7 02:51 Triage completed. jj7 02:57 Provided Education on: USE OF CALL WONG. jj7 02:57 Inserted saline lock: 22 gauge in right antecubital area, using aseptic technique. ha1 Blood collected. Flushed with 10 mL NS. 03:15 Initial lab(s) drawn, by va, sent to lab. First set of blood cultures drawn by va, jj7 Second set of blood cultures drawn by va, COVID swab sent to lab. Flu and/or RSV swab sent to lab. 03:27 BNP Sent. jj7 03:27 Troponin High Sensitivity Sent. jj7 03:27 CRP Sent. jj7 03:27 TSH Sent. jj7 03:27 Lipase Sent. jj7 03:27 COVID-19 Ag + Flu A+B Ag Sent. jj7 03:27 Blood Culture Adult (2) Sent. jj7 03:27 CBC with Diff Sent. jj7 03:27 CMP Sent. jj7 03:27 Lactate w/ 2H reflex if indic. Sent. jj7 03:27 Protime (+inr) Sent. jj7 03:27 Ptt, Activated Sent. jj7 03:58 CT Chest Abdomen Pelvis W/O Contrast In Process Unspecified. EDMS 07:09 Report given to REPORT GIVEN TO TANISHA BAGLEY. jj7 07:18 Rigo Eduardo is Hospitalizing Provider. sp4 09:50 No provider procedures requiring assistance completed. Patient admitted, IV remains in aa5 place. Administered Medications: 03:41 Drug: Ondansetron IVP 4 mg IVP once; over 2 minutes Route: IVP; Site: right antecubital;ha1 05:58 Follow up: Response: Marked relief of symptoms jj7 03:42 Drug: NS 0.9% IV 1000 ml IV at 1000 ml once; to be given as a bolus over 60 minutes ha1 Route: IV; Rate: 1000 ml; Site: right antecubital; 05:58 Drug: Albumin IVPB 25 grams 100 ml IVPB once; (Note: Albumin 25% concentration) Volume: jj7 100 ml; Route: IVPB; Site: right antecubital; 06:28 Follow up: IV Status: Completed infusion jj7 06:37 Drug: Albumin IVPB 25 grams 100 ml IVPB once; (Note: Albumin 25% concentration) Volume: jj7 100 ml; Route: IVPB; Site: right antecubital; 07:07 Follow up: IV Status: Completed infusion; IV Intake: 100ml aa5 06:56 Drug: NS 0.9% IV 1000 ml IV at 1 bolus Per protocol; to be given as a bolus over 60 jj7 minutes Route: IV; Rate: 1 bolus; Site: right antecubital; 07:56 Follow up: IV Status: Completed infusion; IV Intake: 1000ml aa5 Medication: 02:57 VIS not applicable for this client. jj7 Intake: 07:07 IV: 100ml; Total: 100ml. aa5 07:56 IV: 1000ml; Total: 1100ml. aa5 Outcome: 07:18 Decision to Hospitalize by Provider. sp4 09:50 Admitted to ER Hold. Please see [facility] for further documentation. aa5 09:50 Condition: stable 09:50 Instructed on the need for admit, Demonstrated understanding of instructions, 14:55 Patient left the ED. aa5 Signatures: Dispatcher [employer] EDMS Tanisha Vazquez RN RN aa5 Denise Zhou RN RN ha1 Richard Tenorio RN RN jj7 Asad Morrison MD MD sp4 Corrections: (The following items were deleted from the chart) 15:04 15:03 Patient left the ED. aa5 aa5
--- NOTE | 2024-09-25 07:21 | RAD REPORT ---
EXAM: CT CHEST, ABDOMEN AND PELVIS WITHOUT CONTRAST CLINICAL INDICATION: Male, 79 years old vomiting TECHNIQUE: CT chest, abdomen and pelvis was performed, without IV contrast, as per department protoco l. Axial, sagittal and coronal reconstructions were obtained. One or more of the following dose reduction techniques were used: Automated exposure control, adjustment of the mA and/or kV according to the patient size, and/or iterative reconstruction. Unless otherwise specified, incidental findings do not require dedicated imaging follow-up. [id number]. COMPARISON: 01/01/2022 FINDINGS: The lack of intravenous contrast limits the sensitivity of this exam for evaluation of solid visceral organs, vascular structures, and retroperitoneum. Chest: LOWER NECK: Visualized thyroid gland and soft tissues are normal. LUNGS AND AIRWAYS: Dependent atelectasis.Motion artifact limits evaluation for pulmonary nodule detec tion. Pleural-based calcifications along the lower lungs. PLEURA: No pleural effusion. No pneumothorax. Hemidiaphragms are normally positioned. MEDIASTINUM AND LYMPH NODES: No mediastinal mass or fluid collection. Normal size mediastinal, hilar, and axillary lymph nodes. Fluid present within the esophagus which may be from reflux. Distal esophagus is also mildly thickened. THORACIC AORTA: No thoracic aortic aneurysm. Atherosclerotic changes are present. PULMONARY ARTERIES: Caliber is within normal limits. HEART: Normal heart size. Coronary arterial calcifications are present.No significant pericardial eff usion. Abdomen/Pelvis UPPER GI: Distended stomach with fluid. LIVER: No significant focal abnormality. GALLBLADDER/BILE DUCTS: No biliary ductal dilatation. PANCREAS: Atrophy but otherwise normal. SPLEEN: Unremarkable. ADRENALS: No adrenal masses. KIDNEYS AND URETERS: No hydronephrosis.No suspicious renal mass.Nonobstructive right nephrolithiasis. ABDOMINAL AORTA AND OTHER VESSELS: Moderate atherosclerotic changes without aortic aneurysm. PERITONEUM: No abnormal free fluid. No free air. LYMPH NODES: No pathologic lymphadenopathy. ABDOMINAL WALL: Unremarkable SMALL BOWEL/COLON: Rectal wall thickening.No bowel obstruction. Nonspecific fluid present within the small bowel and colon which may represent diarrheal disease. Normal appendix. URINARY BLADDER: Underdistended but grossly unremarkable. REPRODUCTIVE ORGANS: No pathologic process. MUSCULOSKELETAL: Multilevel degenerative changes in the spine. No acute fracture. Fusion at L1-L4 whi ch may be developmental. ADDITIONAL FINDINGS: None. IMPRESSION: 1. Question proctitis. No bowel obstruction identified. 2. Esophageal fluid could be from gastroesophageal reflux. 3. Other ancillary findings as noted above. Electronically signed by: Blas Crabtree MD 09/25/2024 07:17 AM CDT RP Due to temporary technical issues with the PACS/Lightswitch reporting system, reports are being ty d by the in-house radiologist without review as a courtesy to ensure prompt reporting the interpreting radiologist is fully responsible for the content of the report. Transcribed Date/Time: 09/25/2024 7:21 AM
[2024-09-25] MEDS ORDERED: ACETAMINOPHEN 650MG/RECT SUPP PR PRN (08:16)
[2024-09-25] MEDS ORDERED: SODIUM CHLORIDE 0.9% 10ML INJ IV PRN (08:16)
[2024-09-25] MEDS ORDERED: HEPARIN 5000 UNIT/ML 1 ML VIAL ONE (09:39)
[2024-09-25] MEDS ORDERED: METRONIDAZOLE 500mg IVPB 500 MG/100 ML BAG IV ONE (09:39)
[2024-09-25] MEDS ORDERED: CIPROFLOXACIN 400mg IV 400 MG/200 ML BAG IV ONE (09:39)
[2024-09-25] MEDS ORDERED: PANTOPRAZOLE 40 MG INJ ONE (09:39)
[2024-09-25] MEDS ORDERED: D5 0.45 NS 1,000 ML IV ONE (09:40)
[2024-09-25] MEDS: D5 0.45 NS 1,000 ML IV SCH (09:50)
[2024-09-25] MEDS: METRONIDAZOLE 500mg IVPB 500 MG/100 ML BAG IV SCH (09:50)
[2024-09-25] MEDS: PANTOPRAZOLE 40 MG INJ IVP SCH (09:50)
[2024-09-25] MEDS: HEPARIN 5000 UNIT/ML 1 ML VIAL SQ SCH (09:50)
[2024-09-25] MEDS: CIPROFLOXACIN 400mg IV 400 MG/200 ML BAG IV SCH (10:20)
[2024-09-25] MEDS ORDERED: ONDANSETRON 4 MG/2 ML VIAL IV PRN (10:24)
--- NOTE | 2024-09-25 10:35 | P.HP ---
Certification for Inpatient Patient admitted to: Observation With expected LOS: <2 Midnights Practitioner: I am a practitioner with admitting privileges, knowledge of patient current condition, hospital course, and medical plan of care. Services: Services provided to patient in accordance with Admission requirements found in Title 42 Section 412.3 of the Code of Federal Regulations Patient History Date of Service: 09/25/24 Reason for admission: Acute Ileus History of Present Illness: Abbe Mcknight is an 79 year old male with Pmhx age-related cognitive decline; DYSPHAGIA; Gastroesophageal reflux disease; Gout; Hyperlipidemia; Hypertension who presented to the ED with nausea and vomiting that began yesterday. He reports not being able to keep anything down and feels his abdomen is distended. On evaluation, abdomen is distended but nontender, Abbe has continual belching during conversation but in no acute distress. Laboratory evaluation significant for left shift neutrophils 88.7, bandemia with band neutrophils 11, sodium 135, serum glucose 119, C-reactive protein 22.3, BNP 664. CT abd/pelvis reports "1. Question proctitis. No bowel obstruction identified. 2 . Esophageal fluid could be from gastroesophageal reflux. SMALL BOWEL/COLON: Rectal wall thickening.No bowel obstruction. Nonspecific fluid present within the small bowel and colon which may represent diarrheal disease. Normal appendix." Abbe will be admitted to hospitalist service for evaluation and treatment of Acute Ileus, Dr. Taylor consulted. Allergies No Known Allergies Allergy (Verified 07/20/20 23:24) Home Medications: Cyanocobalamin [Vitamin B-12*] 1,000 mcg PO DAILY #30 tab 07/30/20 Docusate/Senna [Senokot-S*] 2 tab PO BEDTIME PRN #60 tab 07/30/20 Ferrous Sulfate [Ferrous Sulfate*] 325 mg PO DAILY #30 tab 07/30/20 Iron/FA/Vit B-Com W/C [Hemocyte Plus*] 1 tab PO DAILY WITH BREAKFAST #30 tab 07/30/20 Magnesium Oxide [Mag 0X*] 400 mg PO BID #60 tab 07/30/20 Melatonin [Melatonin*] 3 mg PO BEDTIME PRN PRN tablet 07/30/20 Zinc Oxide [Zinc Oxide 20%*] 1 appl TOP BID #1 tube 07/30/20 allopurinoL [Zyloprim*] 300 mg PO DAILY #30 tab 07/30/20 atenoloL [Tenormin*] 25 mg PO THLAF3WM #30 tab 07/30/20 cloNIDine HCL [Catapres*] 0.1 mg PO BID #60 tab 07/30/20 - Past Medical/Surgical History Diabetic: No -: HTN -: HLD -: Gout -: Age related cognitive decline Past Surgical History: Patient denies surgical history - Social History Smoking Status: Never smoker Alcohol use: Yes CD- Drugs: No Caffeine use: Yes Review of Systems Other: per HPI Physical Examination - Physical Exam General: Alert, In no apparent distress, Oriented x3 HEENT: Atraumatic, Normocephalic Neck: 2+ carotid pulse no bruit, JVD not distended Respiratory: Clear to auscultation bilaterally, Normal air movement Cardiovascular: Normal pulses, Regular rate/rhythm Capillary refill: <2 Seconds Gastrointestinal: Hypoactive, Soft and benign, Distended Musculoskeletal: No clubbing Integumentary: No rashes Neurological: Normal speech, Normal tone - Studies Laboratory Data (last 24 hrs) 09/25/24 09/25/24 09/25/24 03:15 03:15 03:15 WBC 6.60 Hgb 16.0 Hct 46.9 Plt Count 153 PT 11.7 INR 1.03 APTT 43.5 H Sodium 135 L Potassium 3.6 BUN 10 Creatinine 0.76 Glucose 119 H Total Bilirubin 0.7 AST 17 ALT 21 Alkaline Phosphatase 96 Lipase 16 Assessment and Plan - Plan Assessment and Plan Acute Ileus Nausea/vomting GERD Bandemia -IV Cipro and Flagyl -IV Zofran -Protonix BID -Gentle IV fluids -N.p.o. -Consult Dr. Taylor -Serial abdominal exams -Follow blood cultures -FLu/COVID/UA negative Age-related cognitive decline DYSPHAGIA Gout Hyperlipidemia Hypertension -Continue home medications as appropriate -supportive care DVT ppx heparin DNR LOS 24 hour OBS Discharge Plan: Intermediate Plan to discharge in: 48 Hours - Advance Directives Does patient have a Living Will: No Does patient have a Durable POA for Healthcare: No
[2024-09-25 11:51] VITALS: BMI 26.7
--- NOTE | 2024-09-25 18:58 | CON ---
Date of Consultation: 09/25/2024 Diagnosis: Abdominal pain. History Of Present Illness: This is a case of an 79-year-old patient with history of dementia, comes to us with epigastric pain, admitted to the hospital for evaluation. He feels better now. This hap pened mainly last night. He does not recall eating anything out of the usual. He denies any dysuria , hematuria, hematochezia, or melena. He still has some mild diarrhea. Allergies: NONE. Medications: Senokot, iron, melatonin, Tenormin, Catapres. Past Medical History: Include hypertension and gout. Past Surgical History: None. Social History: He does not smoke. He does not drink alcohol. Review of Systems: As above. Nausea, bloating, and abdominal pain. No hematochezia. No melena. Unknown previous colo noscopies. Ten points otherwise unremarkable. Physical Examination: Vital Signs: Reviewed. General: The patient is awake and alert. HEENT: Pupils are equal and reactive. Anicteric. Neck: Supple. Chest: Clear. Abdomen: Soft and depressible. Mild distention. No peritonitis. Rectal: Deferred. Extremities: Good capillary refill. Laboratory Data: Blood work shows WBC count of 6 with a hemoglobin of 16. Potassium 3.6, lipase 16. CAT scan of the abdomen and pelvis interpreted by Dr. Salazar as probably proctitis, unknown origin. No bowel obstruction identified. That is from the surgical standpoint. Assessment: This is an 79-year-old patient who had some belly ache yesterday. Feels better today. Passing gas. CAT scan negative for bowel obstruction. So, we might start giving him some liquid t, nice and slow to see how he does. We question or if we see that he does not respond, then we migh t have to do small-bowel series to verify that there was no bowel obstruction. At this moment, he garrett s no peritonitis. We will follow the patient with you. NAMAN/MODL Voice ID: [id number] Report ID: [id number]
[2024-09-26 05:55] LABS: Absolute Eosinophils 0.1 K/uL (0-0.5); Absolute Lymphocytes (CBC) 1.5 K/uL (0.7-4.9); Absolute Monocytes 0.3 K/uL (0.1-1.3); Absolute Neutrophil 3.6 K/uL (1.8-8.0); Basophils % 0.2 % (0-1.3); Eosinophils % 1.3 % (0-4.4); Hematocrit 37.6 % (39.6-49.0); Hemoglobin 13.5 g/dL (13.6-17.9); MCH 33.1 pg (27.0-35.0); MCHC 35.9 g/dL (32.0-36.0); MCV 92.4 fL (80-100); MPV 6.7 fL (7.6-11.3); Monocytes % 5.8 % (3.3-12.3); Neutrophils % 65.7 % (41.7-73.7); Nucleated Red Blood Cells % 0.1 % (0-0); Platelets 117 thou/uL (152-406); RBC Red Blood Cell Count 4.06 M/uL (4.33-5.43); Red Cell Distribution Width 15.4 % (12.1-15.2)
[2024-09-26 06:11] LABS: Anion Gap 6.2 mEq/L (5.0-15.0); Magnesium 1.8 mg/dL (1.6-2.4); Phosphorus 1.6 mg/dL (2.5-4.9); Potassium 3.2 mEq/L (3.5-5.1)
--- NOTE | 2024-09-26 08:06 | RAD REPORT ---
Exam:Abdomen W Erect Clinical history: Abdominal pain FINDINGS: Air is present within nondilated large and small bowel in a nonspecific fashion having the appearance of an adynamic ileus. Free air is not seen beneath the diaphragm. No significant calcification is displayed.
[2024-09-26] MEDS: MAGNESIUM SULFATE 1 gm IVPB 1 GM/100 ML BAG IV ONE (08:19)
[2024-09-26] MEDS: POTASS/SODIUM PHOSPHATE 1 PKT POWD.PACK PO SCH (08:28)
--- NOTE | 2024-09-26 10:18 | P.PN ---
Date of Service: 09/26/24 Subjective Awake, reports having diarrhea and passing gas Reports tolerating FLD, but most of his breakfast was untouched ROS 10 point ROS as noted above, otherwise negative Physical Exam General: Alert and Oriented x3, NAD Neck: 2+ carotid pulse no bruit, JVD not distended Respiratory: Clear to auscultation bilaterally, Normal air movement Cardiovascular: Normal pulses, mild tachycardia Capillary refill: <2 Seconds Gastrointestinal: Hypoactive, Soft on palaption, Distended Musculoskeletal: No clubbing Integumentary: No rashes Neurological: Normal speech, Normal tone Vitals Reviewed Problem list Acute Ileus Bacteremia Nausea/vomting GERD Bandemia Age-related cognitive decline DYSPHAGIA Gout Hyperlipidemia Hypertension Assessment and Plan Acute Ileus Bacteremia Nausea/vomting GERD Bandemia -IV Cipro and Flagyl stopped and changed to Doxy and merrem -IV Zofran -Protonix BID -Gentle IV fluids -N.p.o. -Consult Dr. Taylor -Serial abdominal exams -Follow blood cultures -FLu/COVID/UA negative Age-related cognitive decline DYSPHAGIA Gout Hyperlipidemia Hypertension -Continue home medications as appropriate -supportive care Hospital Interval course 09/26/24 -Diarrhea, no stool in bowel on CT abd/pelvis from yesterday -KUB reports "Air is present within nondilated large and small bowel in a nonspecific fashion having the appearance of an adynamic ileus. Free air is not seen beneath the diaphragm. No significant calcification is displayed." -Dr. Taylor following, CT Abd/pelvis with oral contrast in the AM -Mild tachycardia OVN -blood cultures with G Pos Cocci in 3 vials, changed ABx to vancomycin -Dr. Liriano consulted -Platelets decreased, monitoring for sepsis vs heparin use DVT ppx heparin DNR LOS 24 hour OBS Discharge Plan: Mcfp Plan to discharge in: 48 Hours
[2024-09-26] MEDS: VANCOMYCIN 1.5 GM in NA CHLORIDE 0.9% 500 ML IVPB SCH (10:32)
[2024-09-26] MEDS: POTASSIUM 25 MEQ EFFERV TAB PO ONE (10:33)
[2024-09-26] MEDS ORDERED: VANCOMYCIN 1 GM in NA CHLORIDE 0.9% 250 ML IVPB SCH (11:00)
--- NOTE | 2024-09-26 12:02 | EKG ---
Test Date: 2024-09-25 Test Time: 04:39:20 Product Grader: JOYCE MEASUREMENT RESULTS: Intervals: Rate: 108 UT: 230 QRSD: 94 QT: 324 QTc: 434 [place]: P: 51 UT: 230 QRS: -73 T: 84 INTERPRETIVE STATEMENTS: Sinus tachycardia with 1st degree AV block Left axis deviation Inferior infarct, age undetermined Abnormal ECG Compared to ECG 10/06/2023 18:26:41 Left-axis deviation now present Myocardial infarct finding now present Sinus rhythm no longer present Left anterior fascicular block no longer present Electronically Signed On 09-26-24 11:59:49 CDT by Russell Vizcarra
--- NOTE | 2024-09-26 12:53 | CON ---
History Of Present Illness: This is an 79-year-old male. I was consulted for gram-positive bacteremia. The patient came to the emergency room with significant past medical history of cognitive decline, dysphagia, gastroesophageal reflux disease, gout, hyperlipidemia, hypertension, coming to hospital with nausea, vomiting, fevers. Feels much better today. Past Medical History: As per HPI. Social History: Nonsmoker. Nondrinker. Family History: Noncontributory. Medications: Vancomycin. See MARs for other medications. Allergies: NO KNOWN DRUG ALLERGIES. Review of Systems: A 10-point review was performed. Physical Examination: General: This is an 79-year-old male, lying in bed, not in any acute cardiopulmonary distress. Vital Signs: Temperature 97, with T-max of 98.8 yesterday, pulse 95, respirations 12, blood pressure 132/81. HEENT: Unremarkable. Neck: Supple. Lungs: Basal crackles. Heart: S1, S2. Regular. Abdomen: Slightly distended. Bowel sounds hyperactive. Extremities: No edema. Laboratory Data: CT abdomen and pelvis shows patient has diarrheal disease. No other significant findings. Laboratory Data: Shows WBC 5.5, hemoglobin 13.5, platelets 117. Chemistry shows BUN of 10, creatinine 0.7 with albumin level of 3.1. Assessment And Plan: 1. Gram-positive bacteremia. Agree with vancomycin regarding abdominal distention and repeat MRI, if not improved by tomorrow. 2. Thrombocytopenia. 3. Moderate protein-calorie malnourishment. 4. Hematuria. 5. Prostatitis. Recommend to add meropenem to his current regimen. We will follow the patient as needed. Thank you for consult. RADHAMES/LOCO Voice ID: [id number] Report ID: [id number] KARI
[2024-09-26] MEDS: Meropenem 1,000 MG in NA CHLORIDE 0.9% 100 ML IV SCH (13:47)
[2024-09-26] MEDS: DAPTOmycin 700 MG in NA CHLORIDE 0.9% 100 ML IVPB SCH (14:51)
--- NOTE | 2024-09-26 17:29 | PN ---
Date of Progress Note: 09/26/2024 Diagnosis: Ileus and proctitis. Subjective: This is the case of an 79-year-old patient, comes to us with abdominal distention and pa in. Initially, although he has no peritonitis, we saw distention and mild generalized tenderness. Orly estrada was diagnosed also with an ileus and diagnosed also with proctitis. His abdomen today is a little bit better, but still distended and mild generalized tenderness. There is no guarding or rebound, bu t has the appearance of some generalized colitis. Blood work reviewed. Always been white count normal. We noticed a little bit decrease in the platel ets. Plan: I discussed the case with the Infectious Disease and the primary doctor and the nurse practiti majo, trying to everybody understand that even though the CAT scan does not show any severe colitis, still I believe there is an infectious process going on and we have to address that issue that is pro bably causing the ileus. We will repeat the imaging tomorrow to compare with the imaging in the last 48 hours to see if there is any progression of his colitis either for the good or for the bad. HM/MODL Voice ID: [id number] Report ID: [id number]
[2024-09-26] MEDS: POTASSIUM CL SA 10 MEQ TAB PO ONE (17:33)
[2024-09-26] MEDS ORDERED: NA CHLORIDE 0.9% 1,000 ML ONE (21:22)
[2024-09-27] MEDS: HYDRALAZINE HCL 20 MG/ML VIAL IV ONE (04:23)
[2024-09-27 06:49] LABS: Absolute Eosinophils 0.1 K/uL (0-0.5); Absolute Lymphocytes (CBC) 1.9 K/uL (0.7-4.9); Absolute Monocytes 0.4 K/uL (0.1-1.3); Absolute Neutrophil 4.3 K/uL (1.8-8.0); Basophils % 0.4 % (0-1.3); Eosinophils % 1.2 % (0-4.4); Hematocrit 42.4 % (39.6-49.0); Hemoglobin 14.6 g/dL (13.6-17.9); Lymphocytes % 28.2 % (15.3-44.8); MCH 31.9 pg (27.0-35.0); MCHC 34.5 g/dL (32.0-36.0); MCV 92.7 fL (80-100); MPV 6.5 fL (7.6-11.3); Monocytes % 6.1 % (3.3-12.3); Neutrophils % 64.1 % (41.7-73.7); Nucleated Red Blood Cells % 0.1 % (0-0); Platelets 140 thou/uL (152-406); RBC Red Blood Cell Count 4.58 M/uL (4.33-5.43); Red Cell Distribution Width 15.5 % (12.1-15.2)
[2024-09-27 07:02] LABS: Anion Gap 12.5 mEq/L (5.0-15.0); Magnesium 1.6 mg/dL (1.6-2.4); Phosphorus 1.6 mg/dL (2.5-4.9); Potassium 3.5 mEq/L (3.5-5.1)
--- NOTE | 2024-09-27 09:03 | RAD REPORT ---
EXAMINATION: Abdomen Pelvis W/Wo Contrast CLINICAL INDICATION: Male, 79 years old.Ileus TECHNIQUE: CT abdomen and pelvis was performed before and after the administration of IV contrast as per department protocol. Axial, sagittal and coronal reconstructions were obtained. One or more of the following dose reduction techniques were used: Automated exposure control, adjustment of the mA a nd/or kV according to patient size, and/or iterative reconstruction. Unless otherwise specified, incidental findings do not require dedicated imaging follow-up. [id number]. COMPARISON: 09/25/2024 FINDINGS: LOWER CHEST: Small bilateral effusions.No significant pericardial effusion. Moderate coronary artery calcifications. Aortic valve calcifications. UPPER GI: No significant abnormality. LIVER: No significant focal abnormality. GALLBLADDER/BILE DUCTS: Increased gallbladder distention.? PANCREAS: Atrophy but no acute findings. SPLEEN: Unremarkable. ADRENALS: No adrenal masses. KIDNEYS AND URETERS: No hydronephrosis.Limited evaluation for renal lesions in the absence of IV cont rast.Nonobstructing renal calculi. ABDOMINAL AORTA AND OTHER VESSELS: Mild atherosclerotic changes. PERITONEUM: No abnormal free fluid. No free air. LYMPH NODES: No pathologic lymphadenopathy. ABDOMINAL WALL: Body wall edema. small fat-containing umbilical hernia. SMALL BOWEL/COLON: Mild rectal wall thickening.Normal appendix. Mild diverticulosis without diverticu litis. URINARY BLADDER: Underdistended but grossly unremarkable. REPRODUCTIVE ORGANS: No pathologic process. MUSCULOSKELETAL: Multilevel degenerative changes in the spine. No acute fracture. ADDITIONAL FINDINGS: None. IMPRESSION: Rectal wall thickening which may reflect proctitis. No bowel obstruction. Nonspecific increased gallbladder distention. Correlate with LFTs. If there is concern for acute chol ecystitis, could consider ultrasound.
[2024-09-27 12:11] LABS: Bilirubin Direct 0.2 mg/dL (0-0.2); Bilirubin Indirect, Calculated 0.5 mg/dL (0.2-0.8); Bilirubin Total 0.7 mg/dL (0.2-1.0); Globulin 3.1 g/dL (2.3-3.5); Protein, Total 6.1 g/dL (6.4-8.2)
--- NOTE | 2024-09-27 12:55 | P.PN ---
Date of Service: 09/27/24 Subjective Awake, reports having diarrhea and passing gas No acute events overnight ROS 10 point ROS as noted above, otherwise negative Physical Exam General: Alert and Oriented x3, NAD Neck: 2+ carotid pulse no bruit, JVD not distended Respiratory: Clear to auscultation bilaterally, Normal air movement Cardiovascular: Normal pulses, mild tachycardia Capillary refill: <2 Seconds Gastrointestinal: Hypoactive, Soft on palaption, Distended Musculoskeletal: No clubbing Integumentary: No rashes Neurological: Normal speech, Normal tone Vitals Reviewed Problem list Acute Ileus Gram positive bacteremia Nausea/vomting GERD Bandemia Age-related cognitive decline DYSPHAGIA Gout Hyperlipidemia Hypertension Assessment and Plan Acute Ileus Gram-positive bacteremia Nausea/vomting GERD Bandemia -IV Cipro and Flagyl stopped and changed to daptomycin and merrem -Blood cultures with gram-positive bacteria, awaiting final result -Echocardiogram ordered -Protonix BID -Gentle IV fluids -Surgery following -Serial abdominal exams, had bowel movement overnight, abdominal pain improving -FLu/COVID/UA negative -CT Abd pelvis 09/27 shows Rectal wall thickening which may reflect proctitis. No bowel obstruction. Nonspecific increased gallbladder distention. Correlate with LFTs. If there is concern for acute cholecystitis, could consider ultrasound -LFTs WNL, no specific RUQ pain Age-related cognitive decline DYSPHAGIA Gout Hyperlipidemia Hypertension -Continue home medications as appropriate -supportive care DVT ppx heparin DNR Discharge Plan: Custodial Plan to discharge in: 48 Hours
--- NOTE | 2024-09-27 13:04 | PN ---
Date of Progress Note: 09/27/2024 Diagnosis: Ileus. Subjective: The patient is doing better. He says he is tolerating his diet. We will repeat the CAT scan today to see the progress of his proctitis. He has not get set yet, we are trying to figure ou t if it is safe to do that or not. The patient stated that he is passing gas and no more abdominal p ain. Objective: Chest: Clear. Abdomen: Soft and depressible. It is always distended, but no guarding or rebound. Bowel sounds po sitive. Extremities: Good capillary refill. The CAT scan of today repeat shows small bilateral pleural effusion, shows still mild rectal wall thi ckening, that is the proctitis that we have been dealing with and there is no specific gallbladder di stention. We are not surprised about it since the patient has not been fit for few days and we expec vikas some gallbladder distention and the LFTs abnormal on him. Plan: We are going to advance his diet slowly. He wants to eat a little bit more and we will follow him clinically to see if there is anything else that we can provide at this moment at least today. No plan for surgical intervention. HM/MODL Voice ID: [id number] Report ID: [id number]
[2024-09-27] MEDS: D5 0.45 NS 1,000 ML IV SCH (13:44)
--- NOTE | 2024-09-27 18:39 | PN ---
Subjective: The patient lying in bed. No new acute event. Chart reviewed. Objective: Vital signs: Reviewed. Mild low-grade fevers. Lungs: Basal crackles. Heart: S1, S2. Regular. Abdomen: Slightly distended. Bowel sounds present. Extremities: No edema. Laboratory Data: Shows WBC 6.8, hemoglobin 14.6, platelets have increased to 140. Chemistry shows B UN of 4, creatinine 0.5, albumin level is 3. Liver enzymes are normal. Urinalysis shows rbc 11 to 2 0. Micro data shows blood cultures are 3/4 bottles are showing gram-positive cocci in clusters. Sen sitivity and specificity pending. Assessment And Plan: 1. Bacteremia secondary to gram-positive cocci in clusters, currently on daptomycin. Abdominal diste ntion with nausea and vomiting. Continue meropenem. Consider getting an MRI of the abdomen and pelv is. 2. Proctitis. Continue current treatment with meropenem empirically. Monitor signs of infection wit h WBC and fever trends. No other recommendation at this time. NF/MODL Voice ID: [id number] Report ID: [id number]
[2024-09-28 04:29] LABS: Absolute Eosinophils 0.1 K/uL (0-0.5); Absolute Lymphocytes (CBC) 1.9 K/uL (0.7-4.9); Absolute Monocytes 0.5 K/uL (0.1-1.3); Absolute Neutrophil 3.3 K/uL (1.8-8.0); Basophils % 0.2 % (0-1.3); Eosinophils % 1.5 % (0-4.4); Hematocrit 37.8 % (39.6-49.0); Hemoglobin 13.3 g/dL (13.6-17.9); Lymphocytes % 32.8 % (15.3-44.8); MCH 32.2 pg (27.0-35.0); MCHC 35.2 g/dL (32.0-36.0); MCV 91.3 fL (80-100); MPV 6.9 fL (7.6-11.3); Monocytes % 8.8 % (3.3-12.3); Neutrophils % 56.7 % (41.7-73.7); Platelets 129 thou/uL (152-406); RBC Red Blood Cell Count 4.14 M/uL (4.33-5.43); Red Cell Distribution Width 15.5 % (12.1-15.2)
[2024-09-28 04:45] LABS: Albumin 2.8 g/dL (3.4-5.0); Anion Gap 10.6 mEq/L (5.0-15.0); Bilirubin Total 0.8 mg/dL (0.2-1.0); Globulin 2.9 g/dL (2.3-3.5); Magnesium 1.6 mg/dL (1.6-2.4); Potassium 3.6 mEq/L (3.5-5.1); Protein, Total 5.7 g/dL (6.4-8.2)
[2024-09-28 05:10] LABS: Phosphorus 1.4 mg/dL (2.5-4.9)
[2024-09-28] MEDS: MORPHINE 2 MG/ML SYR IV PRN (06:38)
[2024-09-28] MEDS: POTASSIUM PHOS IN 0.9 % NACL 15 MMOL/250 ML BAG IV ONE (08:35)
[2024-09-28] MEDS: ALBUTEROL 2.5 MG/3 ML NEB SOL NEB ONE (09:20)
--- NOTE | 2024-09-28 14:21 | P.PN ---
Date of Service: 09/28/24 Subjective Awake, reports having diarrhea and passing gas No acute events overnight ROS 10 point ROS as noted above, otherwise negative Physical Exam General: Alert and Oriented x3, NAD Neck: 2+ carotid pulse no bruit, JVD not distended Respiratory: Clear to auscultation bilaterally, Normal air movement Cardiovascular: Normal pulses, mild tachycardia Capillary refill: <2 Seconds Gastrointestinal: Hypoactive, Soft on palaption, Distended Musculoskeletal: No clubbing Integumentary: No rashes Neurological: Normal speech, Normal tone Vitals Reviewed Problem list Acute Ileus Gram positive bacteremia Nausea/vomting GERD Bandemia Age-related cognitive decline DYSPHAGIA Gout Hyperlipidemia Hypertension Assessment and Plan Acute Ileus Gram-positive bacteremia Nausea/vomting GERD Bandemia -IV Cipro and Flagyl stopped and changed to daptomycin and merrem -Blood cultures with gram-positive bacteria 10/07 staph epidermis -Daptomycin discontinued, procalcitonin negative -Repeat blood cultures ordered -Echocardiogram ordered -Protonix BID -Gentle IV fluids -Surgery following -Serial abdominal exams, had bowel movement overnight, abdominal pain improving -FLu/COVID/UA negative -CT Abd pelvis 09/27 shows Rectal wall thickening which may reflect proctitis. No bowel obstruction. Nonspecific increased gallbladder distention. Correlate with LFTs. If there is concern for acute cholecystitis, could consider ultrasound -LFTs WNL, no specific RUQ pain Age-related cognitive decline DYSPHAGIA Gout Hyperlipidemia Hypertension -Continue home medications as appropriate -supportive care DVT ppx heparin DNR Discharge Plan: [facility]iary Plan to discharge in: 48 Hours
[2024-09-28] MEDS ORDERED: GABAPENTIN 100 MG CAP PO PRN (16:14)
--- NOTE | 2024-09-28 16:24 | PN ---
Subjective: The patient lying in bed. No new acute event. Chart reviewed. Denies any discomfort a t this time. Objective: Vital Signs: Temperature 97.9, pulse 90, respirations 16, blood pressure 188/81. Lungs: Basal crackles. Heart: S1, S2. Regular. Abdomen: Soft, nontender. Bowel sounds present. Extremities: No edema. Laboratory Data: Shows WBC 5.7, hemoglobin 13.3, platelets 129. Chemistry shows BUN of 3, creatinin e 5. Blood cultures are growing Staph epi in 4/4 bottles. Assessment And Plan: Questionable Staph epi bacteremia versus contamination. We will recommend to r epeat blood cultures. Also obtain procalcitonin. Thrombocytopenia. Proctitis. Monitor signs of infection with WBC and fever trends. NF/MODL Voice ID: [id number] Report ID: [id number]
[2024-09-28] MEDS: HYDRALAZINE HCL 20 MG/ML VIAL IV PRN (20:36)
[2024-09-28] MEDS: ATORVASTATIN 40 MG TAB PO SCH (20:40)
[2024-09-28] MEDS: TAMSULOSIN 0.4 MG SR CAP PO SCH (20:40)
--- NOTE | 2024-09-28 22:35 | RAD REPORT ---
Procedure: Chest Single View HISTORY: Cough COMPARISON: 2023 FINDINGS: Elevation of the right hemidiaphragm. The lungs appear clear of acute infiltrate. No significant pleural effusion noted. The heart is normal size.
[2024-09-28] MEDS: ALBUTEROL 2.5 MG/3 ML NEB SOL NEB PRN (23:00)
[2024-09-28] MEDS: IPRATROPIUM BROM 0.5MG/2.5ML NEB PRN (23:00)
[2024-09-29 04:50] LABS: Absolute Eosinophils 0.1 K/uL (0-0.5); Absolute Lymphocytes (CBC) 1.6 K/uL (0.7-4.9); Absolute Monocytes 0.6 K/uL (0.1-1.3); Absolute Neutrophil 4.2 K/uL (1.8-8.0); Basophils % 0.2 % (0-1.3); Hematocrit 40.7 % (39.6-49.0); Hemoglobin 14.6 g/dL (13.6-17.9); Lymphocytes % 24.7 % (15.3-44.8); MCH 32.7 pg (27.0-35.0); MCHC 35.8 g/dL (32.0-36.0); MCV 91.2 fL (80-100); MPV 7.2 fL (7.6-11.3); Monocytes % 9.2 % (3.3-12.3); Neutrophils % 64.9 % (41.7-73.7); Nucleated Red Blood Cells % 0.1 % (0-0); Platelets 141 thou/uL (152-406); RBC Red Blood Cell Count 4.46 M/uL (4.33-5.43); Red Cell Distribution Width 15.2 % (12.1-15.2)
[2024-09-29 05:22] LABS: Albumin 3.1 g/dL (3.4-5.0); Anion Gap 14.5 mEq/L (5.0-15.0); Bilirubin Total 0.8 mg/dL (0.2-1.0); Globulin 3.2 g/dL (2.3-3.5); Magnesium 1.7 mg/dL (1.6-2.4); Potassium 3.5 mEq/L (3.5-5.1); Protein, Total 6.3 g/dL (6.4-8.2)
[2024-09-29] MEDS: atenoloL 25 MG TAB PO SCH (05:57)
--- NOTE | 2024-09-29 07:20 | ECHO ---
HEIGHT: 6 ft 0 in WEIGHT: 197 lb 0 oz DATE OF STUDY: 09/27/[address]: Evert Bowser NP 2-DIMENSIONAL: YES M.MODE: YES DOPPLER: YES COLOR FLOW: YES TDS: PORTABLE: YES DEFINITY: BUBBLE STUDY: DIAGNOSIS: GRAM POSITIVE BACTERMIA CARDIAC HISTORY: CATHERIZATION: SURGERY: PROSTHETIC VALVE: PACEMAKER: MEASUREMENTS (cm) DIASTOLIC (NORMALS) SYSTOLIC (NORMALS) IVSd 1.0 (0.6-1.2) LA Diam 3.1 (1.9-4.0) LVEF 55-60% LVIDd 4.4 (3.5-5.7) LVIDs 3.3 (2.0-3.5) %FS 26% LVPWd 1.2 (0.6-1.2) Ao Diam 3.1 (2.0-3.7) 2 DIMENSIONAL ASSESSMENT: RIGHT ATRIUM: NORMAL LEFT ATRIUM: NORMAL RIGHT VENTRICLE: NORMAL LEFT VENTRICLE: NORMAL TRICUSPID VALVE: TRACE TRICUSPID REGURGITATION MITRAL VALVE: NORMAL PULMONIC VALVE: NORMAL AORTIC VALVE: TRACE AORTIC REGURGITATION PERICARDIAL EFFUSION: NONE AORTIC ROOT: NORMAL LEFT VENTRICULAR WALL MOTION: NORMAL DOPPLER/COLOR FLOW: NORMAL COMMENTS: 1. NORMAL LEFT VENTRICULAR SYSTOLIC FUNCTION, EJECTION FRACTION 55-60%, NORMAL WALL MOTION 2. NORMAL DIASTOLIC FUNCTION 3. NO VEGETATION SEEN TECHNOLOGIST: ANN MARIE
[2024-09-29] MEDS: POTASSIUM PHOS IN 0.9 % NACL 15 MMOL/250 ML BAG IV ONE (08:23)
[2024-09-29] MEDS: FAMOTIDINE 20 MG TAB PO SCH (08:23)
[2024-09-29] MEDS: allopurinoL 300 MG TAB PO SCH (08:23)
--- NOTE | 2024-09-29 13:15 | P.PN ---
Date of Service: 09/29/24 Subjective Awake, reports having diarrhea and passing gas No acute events overnight ROS 10 point ROS as noted above, otherwise negative Physical Exam General: Alert and Oriented x3, NAD Neck: 2+ carotid pulse no bruit, JVD not distended Respiratory: Clear to auscultation bilaterally, Normal air movement Cardiovascular: Normal pulses, mild tachycardia Capillary refill: <2 Seconds Gastrointestinal: Hypoactive, Soft on palaption, Distended Musculoskeletal: No clubbing Integumentary: No rashes Neurological: Normal speech, Normal tone Vitals Reviewed Problem list Acute Ileus Gram positive bacteremia Nausea/vomting GERD Bandemia Age-related cognitive decline DYSPHAGIA Gout Hyperlipidemia Hypertension Assessment and Plan Acute Ileus Gram-positive bacteremia Nausea/vomting GERD Bandemia -IV Cipro and Flagyl stopped and changed to daptomycin and merrem -Blood cultures with gram-positive bacteria 10/07 staph epidermis -Daptomycin discontinued, procalcitonin negative -Repeat blood cultures ordered, no growth in 24 hours -Echocardiogram ordered -Protonix BID -Gentle IV fluids -Surgery following -Serial abdominal exams, abdominal pain improving -FLu/COVID/UA negative -CT Abd pelvis 09/27 shows Rectal wall thickening which may reflect proctitis. No bowel obstruction. Nonspecific increased gallbladder distention. Correlate with LFTs. If there is concern for acute cholecystitis, could consider ultrasound -LFTs WNL, no specific RUQ pain Age-related cognitive decline DYSPHAGIA Gout Hyperlipidemia Hypertension -Continue home medications as appropriate -supportive care DVT ppx heparin DNR Discharge Plan: Custodial Plan to discharge in: 48 Hours
--- NOTE | 2024-09-29 19:35 | PN ---
Subjective: The patient lying in bed. No new complaints. Denies any headache, nausea, vomiting, ch est pain, abdominal pain, constipation, or diarrhea. Objective: Vital Signs: Reviewed. Lungs: Basal crackles. Heart: S1, S2. Regular. Abdomen: Soft, nontender. Bowel sounds present. Extremities: No edema. Laboratory Data: WBC 6, hemoglobin 14.6, platelets 149. BUN 5, creatinine 0.4. Currently, on meropenem. Assessment And Plan: Blood cultures are positive for Staphylococcus epidermidis, most likely contami nant. Repeat cultures are negative. Recommend to switch the patient to Cipro and Flagyl p.o. to com plete 10 more days of antibiotics for proctitis. Thrombocytopenia. Continue monitoring signs of infection with WBC and fever trends. NF/MODL Voice ID: [id number] Report ID: [id number]
[2024-09-29] MEDS: CODEINE 30MG/APAP 300MG TAB PO PRN (22:03)
[2024-09-30 04:29] LABS: Absolute Eosinophils 0.2 K/uL (0-0.5); Absolute Lymphocytes (CBC) 1.9 K/uL (0.7-4.9); Absolute Monocytes 0.6 K/uL (0.1-1.3); Absolute Neutrophil 3.4 K/uL (1.8-8.0); Basophils % 0.5 % (0-1.3); Eosinophils % 3.7 % (0-4.4); Hematocrit 38.1 % (39.6-49.0); Hemoglobin 13.5 g/dL (13.6-17.9); Lymphocytes % 31.5 % (15.3-44.8); MCH 32.4 pg (27.0-35.0); MCHC 35.5 g/dL (32.0-36.0); MCV 91.2 fL (80-100); MPV 6.8 fL (7.6-11.3); Neutrophils % 55.3 % (41.7-73.7); Nucleated Red Blood Cells % 0.2 % (0-0); Platelets 140 thou/uL (152-406); RBC Red Blood Cell Count 4.18 M/uL (4.33-5.43); Red Cell Distribution Width 15.3 % (12.1-15.2)
[2024-09-30 04:59] LABS: Anion Gap 11.6 mEq/L (5.0-15.0); Bilirubin Total 0.8 mg/dL (0.2-1.0); Magnesium 1.8 mg/dL (1.6-2.4); Phosphorus 2.3 mg/dL (2.5-4.9); Potassium 3.6 mEq/L (3.5-5.1)
[2024-09-30] MEDS: POTASSIUM PHOS IN 0.9 % NACL 15 MMOL/250 ML BAG IV ONE (08:45)
[2024-09-30 10:03] VITALS: O2SAT 94
[2024-09-30 12:46] VITALS: TEMP 98.4
[2024-09-30 12:48] VITALS: BP 168/74
--- NOTE | 2024-09-30 15:06 | P.DS ---
Admission Date: 09/26/24 Discharge Date: 09/30/24 Disposition: TRANSFER TO RESIDENTIAL Discharge Condition: GOOD Reason for Admission: Acute Ileus Brief History of Present Illness: Abbe Mcknight is an 79 year old male with Pmhx age-related cognitive decline; DYSPHAGIA; Gastroesophageal reflux disease; Gout; Hyperlipidemia; Hypertension who presented to the ED with nausea and vomiting that began yesterday. He reports not being able to keep anything down and feels his abdomen is distended. On evaluation, abdomen is distended but nontender, Abbe has continual belching during conversation but in no acute distress. Laboratory evaluation significant for left shift neutrophils 88.7, bandemia with band neutrophils 11, sodium 135, serum glucose 119, C-reactive protein 22.3, BNP 664. CT abd/pelvis reports "1. Question proctitis. No bowel obstruction identified. 2. Esophageal fluid could be from gastroesophageal reflux. SMALL BOWEL/COLON: Rectal wall thickening.No bowel obstruction. Nonspecific fluid present within the small bowel and colon which may represent diarrheal disease. Normal appendix." Abbe will be admitted to hospitalist service for evaluation and treatment of Acute Ileus, Dr. Taylor consulted. Hospital Course: Problem list Acute Ileus Gram positive bacteremia Nausea/vomting GERD Bandemia Age-related cognitive decline DYSPHAGIA Gout Hyperlipidemia Hypertension Patient was initially admitted to the hospital for an acute ileus. His symptoms resolved with conservative treatment including IV fluids, antibiotics, as needed pain medications and antiemetics. He had blood cultures performed on 09/25 which grew staph epidermidis, this is likely contaminant, repeat blood cultures were performed on 09/28 which showed no growth. Patient has remained afebrile with a normal white blood cell count throughout hospitalization. He will be prescribed antibiotics at discharge back to the [facility]. He has been tolerating a diet, feeling much better abdomen is soft Home medications should be continued as previously prescribed Additional medications as follows: Cipro 500 mg by mouth twice daily for 1 week Flagyl 500 mg 3 times daily for 1 week Vital Signs/Physical Exam: Temp Pulse Resp BP Pulse Ox 98.4 F 86 12 168/74 H 94 09/30/24 12:09/30/24 12:00 09/30/24 12:00 09/30/24 12:09/30/24 12:00 General: Alert, In no apparent distress, Oriented x3 HEENT: Atraumatic, PERRLA Neck: Supple, JVD not distended Respiratory: Clear to auscultation bilaterally, Normal air movement Cardiovascular: Regular rate/rhythm, Normal S1 S2 Gastrointestinal: Normal bowel sounds, No tenderness Musculoskeletal: No tenderness Integumentary: No rashes Neurological: Normal speech, Normal affect Laboratory Data at Discharge: WBC 6.20 thou/uL (4.3-10.9) 09/30/24 03:57 Hgb 13.5 g/dL (13.6-17.9) L 09/30/24 03:57 Hct 38.1 % (39.6-49.0) L 09/30/24 03:57 Plt Count 140 thou/uL (152-406) L 09/30/24 03:57 PT 11.7 SECONDS (10-13.0) 09/25/24 03:15 INR 1.03 09/25/24 03:15 APTT 43.5 SECONDS (27.2-37.4) H 09/25/24 03:15 Sodium 128 mEq/L (136-145) L 09/30/24 03:57 Potassium 4.3 mEq/L (3.5-5.1) D 09/30/24 10:34 BUN 7 mg/dL (7-18) 09/30/24 03:57 Creatinine 0.51 mg/dL (0.70-1.30) L 09/30/24 03:57 Glucose 74 mg/dL (74-106) 09/30/24 03:57 Phosphorus 2.3 mg/dL (2.5-4.9) L 09/30/24 03:57 Magnesium 1.8 mg/dL (1.6-2.4) 09/30/24 03:57 Total Bilirubin 0.8 mg/dL (0.2-1.0) 09/30/24 03:57 AST 24 U/L (15-37) 09/30/24 03:57 ALT 17 U/L (16-61) 09/30/24 03:57 Alkaline Phosphatase 64 U/L (45-117) 09/30/24 03:57 Lipase 16 U/L (13-75) 09/25/24 03:15 Home Medications: allopurinoL [Zyloprim*] 300 mg PO DAILY #30 tab 07/30/20 atenoloL [Tenormin*] 25 mg PO [id number] #30 tab 07/30/20 Atorvastatin Calcium 40 mg PO BEDTIME 09/25/24 Baclofen 10 mg PO TID PRN 09/25/24 Famotidine [Pepcid] 40 mg PO DAILY 09/25/24 Gabapentin 200 mg PO TID PRN 09/25/24 Tamsulosin [Flomax*] 0.4 mg PO BEDTIME 09/25/24 Ciprofloxacin HCl 500 mg PO BID 7 Days #14 tab 09/30/24 metroNIDAZOLE [Flagyl] 500 mg PO Q8H 7 Days #21 tab 09/30/24 New Medications: Ciprofloxacin HCl 500 mg PO BID 7 Days #14 tab metroNIDAZOLE [Flagyl] 500 mg PO Q8H 7 Days #21 tab Physician Discharge Instructions: Patient was initially admitted to the hospital for an acute ileus. His symptoms resolved with conservative treatment including IV fluids, antibiotics, as needed pain medications and antiemetics. He had blood cultures performed on 09/25 which grew staph epidermidis, this is likely contaminant, repeat blood cultures were performed on 09/28 which showed no growth. Patient has remained afebrile with a normal white blood cell count throughout hospitalization. He will be prescribed antibiotics at discharge back to the [facility]. He has been tolerating a diet, feeling much better abdomen is soft Home medications should be continued as previously prescribed Additional medications as follows: Cipro 500 mg by mouth twice daily for 1 week Flagyl 500 mg 3 times daily for 1 week Diet: Regular Activity: Fall precautions Followup: Althea Mcduffie MD [Primary Care Provider] - 1 Week Time spent managing pt's care (in minutes): 48
--- NOTE | 2024-09-30 18:16 | PN ---
Subjective: The patient being discharged today. Denies any problems. Objective: Vital signs: Reviewed. Lungs: Basal crackles. Heart: S1, S2. Regular. Abdomen: Soft, nontender. Bowel sounds present. Extremities: no edema. Assessment And Plan: Staphylococcus epidermidis contamination in the blood cultures. Proctitis. Recommend Cipro and Flagyl to complete 10 more days. Monitor signs of infection with WBC and fever trends. NF/MODL Voice ID: [id number] Report ID: [id number]
== END 2024-09-30 12:41 | DRG 389 ==
LOC: ER 02:37 → ERHOLD 08:16 → 2ND 14:42 → OBSVTOIN 09-26 12:32
PROVIDERS: ADMIT Internal Medicine; ATTEND Hospitalist
DX: K56.7 Ileus, unspecified (principal); E44.0 Moderate protein-calorie malnutrition; R78.81 Bacteremia; N41.0 Acute prostatitis; E78.5 Hyperlipidemia, unspecified; I10 Essential (primary) hypertension; D72.825 Bandemia; M10.9 Gout, unspecified; D69.6 Thrombocytopenia, unspecified; K21.9 Gastro-esophageal reflux disease without esophagitis; F03.90 Unspecified dementia, unspecified severity, without behavioral disturbance, psychotic disturbance, mood disturbance, and anxiety; B96.89 Other specified bacterial agents as the cause of diseases classified elsewhere; R31.9 Hematuria, unspecified; R13.10 Dysphagia, unspecified; Z66 Do not resuscitate; Z11.52 Encounter for screening for COVID-19; Z68.26 Body mass index [BMI] 26.0-26.9, adult; Z79.899 Other long term (current) drug therapy
CPT/HCPCS: 36415; 71045; 71250; 74019; 74176; 74178; 80048; 80053; 80076; 81001; 82550; 83605; 83690; 83735; 83880; 84100; 84132; 84145; 84443; 84484; 85025; 85610; 85730; 86140; 87040; 87077; 87186; 87205; 87428; 92526; 92610; 93005; 93306; 94640; 96361; 96365; 96375; 97161; 97530; 99285; G0378; J0360; J0744; J0878; J1644; J2185; J2270; J2405; J2470; J3370; J3475; J7030; J7040; J7613; J7644; J7799; P9047; Q9967